=== PATIENT | female | born 1945 | race African-American/Black ===

== ENCOUNTER 2018-10-16 14:33 | Inpatient (IN) | payer MEDICARE ==
[~2018-10-16] VITALS: Ht 154.9 cm; Wt 90.7 kg
[2018-10-16] VITALS (8 sets, daily range): BP systolic 89–134; BP diastolic 42–70
--- OUTSIDE RECORDS SUMMARY | 2018-10-16 14:35 | XMS REPORT | Clinical Summary ---
Author Author [facility] Address Unknown Phone Unavailable Care Team Providers Care Square Cutter Name Role Phone Asked, No Pcp PCP Unavailable Allergies No Known Allergies Medications End Date Status Medication Sig Dispensed Refills Start Date Active metFORMIN (GLUCOPHAGE) Take 500 mg 0 500 mg tablet by mouth 2 (two) times a day with meals. Active diltiazem CD (CardIZEM Take 240 mg 0 CD) 240 MG 24 hr capsule by mouth daily. Active montelukast (SINGULAIR) Take 10 mg by 0 10 mg tablet mouth nightly. Active tiotropium (SPIRIVA) 18 Place 1 0 mcg per inhalation capsule into capsule inhaler and inhale once daily. Active ADVAIR DISKUS 250-50 INHALE 1 PUFF 0 mcg/dose DISKUS BY MOUTH 7 TWICE A DAY Active PROAIR HFA 90 INHALE 2 0 mcg/actuation inhaler PUFFS BY 7 MOUTH 4 TIMES A DAY NEEDED FOR WHEEZING OR SHORTNESS OF BREATH Active amitriptyline (ELAVIL) 50 Take 50 mg by 4 MG tablet mouth 7 nightly. Active losartan-hydrochlorothiaz Take 1 tablet 0 suzette (HYZAAR) 100-12.5 mg by mouth once 7 per tablet daily. Active VIGAMOX 0.5 % ophthalmic INSTILL 1 0 solution DROP 4 TIMES 7 PER DAY LEFT EYE FOR 3 DAYS THEN STOP Active LUMIGAN 0.01 % ophthalmic INSTILL 1 0 drops DROP INTO 7 LEFT EYE EVERY DAY AT BEDTIME Active acetaZOLAMIDE (DIAMOX) Take 500 mg 1 500 mg capsule by mouth 2 7 (two) times a day. Active lactulose 10 gram/15 mL Take 15 mL 240 mL 2 (15 mL) (10 g total) 7 solutionIndications: by mouth 2 Constipation, unspecified (two) times a constipation type day as needed (for constipation) . Active metoprolol tartrate Take 50 mg by 0 (LOPRESSOR) 50 mg tablet mouth every 7 12 (twelve) hours. Active glimepiride (AMARYL) 2 MG Take 2 mg by 4 tablet mouth 2 (two) 7 times a day. Active INCRUSE ELLIPTA 62.5 0 mcg/actuation blister 7 with device Active Problems No known active problems Family History Medical History Relation Name Comments Stomach cancer Cousin Relation Name Status Comments Cousin maternal cousin Dx 50's Social History Date Tobacco Use Types Packs/Day Years Used Former Smoker Cigarettes 0.5 25 Smokeless Tobacco: Never Used Tobacco Cessation: Counseling Given: Yes Alcohol Use Drinks/Week oz/Week Comments No Sex Assigned at Date Recorded Not on file Industry Job Start Date Occupation Not on file Not on file Not on file Travel End Travel History Travel Start No recent travel history available. Last Filed Vital Signs Not on file Plan of Treatment Health Maintenance Due Date Last Done Comments BREAST CANCER SCREENING 12/01/1995 COLON CANCER SCREENING 12/01/1995 SHINGLES VACCINES (#1) 12/01/1995 65+ PNEUMOCOCCAL VACCINE 2010 (1 of 2 - PCV13) INFLUENZA VACCINE 12/10/2018 Implants Device Identifier Shelf Expiration Date Model / Serial / Lot Implanted Type Area [facility] [id number] / / [id number] Solution Tisseel 4ml Fibrin Selnt Surgical N/A: N/A KAYE Syr Prfild - [id number] Implants; BIOSCIENCE Implanted: Qty: 1 on 02/28/2017 by [employer]; Annabelle Bell, Extenders; Surgical Wires Results Not on fileafter 10/15/2017 Insurance Type Payer Benefit Subscriber ID Effective Phone Address Plan / Dates Group Medicare MEDICARE MEDICARE xxxxxxxxxx 2008-P ALEX, PART A AND chelsey Rios Advance Directives Patient has advance care planning documents, and code status on file. For more i nformation, please contact: Alex Crane [address] [place] [address] Date Inactivated Comments Code Status Date Activated 03/04/2017 1:24 AM Full Code 02/28/2017 1:29 PM Code Status decision reached by: Patient
[2018-10-16] MEDS ORDERED: SODIUM CHLORIDE 0.9% 1000ML 1,000 ML ONE (14:59)
[2018-10-16] MEDS ORDERED: LEVALBUTEROL HCL SOLN NEBU 0.63 MG/3 ML NEB ONE (15:01)
--- NOTE | 2018-10-16 15:22 | Diagnostic Imaging Report ---
Examination: Single AP view of the chest. COMPARISON: None. INDICATION: Shortness of breath DISCUSSION: X-ray is rotated. Lines/tubes: None. Lungs: Interstitial prominence. No consolidation. Pleura: No pleural effusion or pneumothorax. Heart and mediastinum: The heart and the mediastinum are unremarkable. Bones and soft tissues: No acute bony abnormalities. IMPRESSION: 1. No acute cardiopulmonary abnormalities. Signed by: Dr. Ghassan Awad M.D. on 10/16/2018 3:19 PM
[2018-10-16 15:26] LABS: BASOPHILS % 0.2 % (0.0-1.0); EOSINOPHILS # (AUTO) 0.1 (0.0-0.4); EOSINOPHILS % 0.8 % (0.0-6.0); LYMPHOCYTES # (AUTO) 1.7 (1.0-3.2); LYMPHOCYTES % 15.3 % (18.0-39.1); MEAN CORPUSCULAR HGB CONC 29.4 g/dL (31-35); MEAN CORPUSCULAR VOLUME 91.8 fL (81-99); MONOCYTES # (AUTO) 0.8 (0.2-0.8); MONOCYTES % 6.8 % (4.4-11.3); NEUTROPHILS # (AUTO) 8.5 (2.1-6.9); NEUTROPHILS % 76.4 % (38.7-80.0); PLATELET COUNT 230 x10e3/uL (140-360); RED BLOOD COUNT 1.96 x10e6/uL (3.6-5.1); RED CELL DISTRIBUTION WIDTH 15.9 % (11.7-14.4)
[2018-10-16] MEDS ORDERED: SODIUM CHLORIDE 0.9% 1000ML 1,000 ML IV SCH (15:30)
[2018-10-16 15:32] LABS: HEMOGLOBIN 5.3 g/dL (12.0-16.0)
[2018-10-16] MEDS ORDERED: LIDOCAINE 5% PATCH TP STA (15:34)
[2018-10-16 15:42] LABS: ALBUMIN 3.1 g/dL (3.5-5.0); ANION GAP 16.8 mmol/L (8-16); CALCIUM 8.8 mg/dL (8.4-10.2); CREATININE, SERUM 1.58 mg/dL (0.57-1.11); POTASSIUM 4.8 mmol/L (3.5-5.1)
[2018-10-16] MEDS ORDERED: SODIUM CHLORIDE 0.9% 250ML 250 ML IV ONE (15:45)
[2018-10-16 15:48] LABS: CREATINE KINASE MB 1.6 ng/mL (0-5.0)
[2018-10-16 15:51] LABS: B-TYPE NATRIURETIC PEPTIDE2 866.5 pg/mL (0-100)
[2018-10-16] MEDS: CEFTRIAXONE SOD 1 GM/NS 50 ML 50 ML IV SCH (16:23)
--- OUTSIDE RECORDS SUMMARY | 2018-10-16 16:32 | XMS REPORT | Clinical Summary ---
Author Author [facility] Address Unknown Phone Unavailable Care Team Providers Care Watch Crystal Molder Name Role Phone Asked, No Pcp PCP [...] / Serial / Lot Implanted Type [facility] [id number] / / [id number] Solution Tisseel 4ml Fibrin Selnt Surgical N/A: N/A KAYE Syr Prfild - [id number] Implants; BIOSCIENCE Implanted: Qty: 1 on 02/28/2017 [...] more i nformation, please contact: Alex Crane [address] [place] [address] Date Inactivated Comments Code Status Date Activated 03/04/2017 1:24 AM Full Code 02/28/2017 1:29 PM Code Status decision reached by: Patient
--- OUTSIDE RECORDS SUMMARY | 2018-10-16 16:32 | XMS REPORT ---
Author Author [facility] Address Unknown Phone Unavailable Care Team Providers Care Shells Inspector Name Role Phone Alejandra BEARD Unavailable Unavailable Problems This patient has no known problems. Allergies, Adverse Reactions, Alerts This patient has no known allergies or adverse reactions. Medications This patient has no known medications. Results Test Description Test Time Test Comments Text Results Atomic Results Result Comments CHEST SINGLE (PORTABLE) 2018-10-16 15:18:00 [facility] [address] [place] [address] Patient Name: DENIS ARREAGA MR #: [id number] : 1945 Age/Sex: 72/F Req #: [id number] Adm Physician: Ordered by: RIKA BEARD MD Report #: [id number] Location: ER Room/Bed: Procedure: [id number] DX/CHEST SINGLE (PORTABLE) Exam Date: 10/16/18 Exam Time: 1450 REPORT STATUS: Signed Examination: Single AP view of the chest. COMPAR JOANNA: None. INDICATION: Shortness of breath DISCUSSION: X-ray is rotated. Lines/tubes: None. Lungs: Interstitial prominence. No consolidation. Pleura: No pleural effusion or pneumothorax. Heart and mediastinum: The heart and the mediastinum are unremarkable. Bones and soft tissues: No acute bony abnormalities. IMPRESSION: 1. No acute cardiopulmonary abnormalities. Signed by: Dr. Danielito Carr M.D. on 10/16/2018 3:19 PM Dictated By: DANIELITO CARR MD [id number] Transcribed By: LEONIDAS on 10/16/18 9736 COPY TO: RIKA BEARD MD
[2018-10-16 16:36] LABS: FERRITIN 13.02 ng/mL (4.63-204.00)
[2018-10-16] MEDS ORDERED: METOPROLOL TART50 MG PO (17:38)
[2018-10-16] MEDS ORDERED: BREO (17:38)
[2018-10-16] MEDS ORDERED: METFORMIN HCL500 MG PO (17:38)
[2018-10-16] MEDS ORDERED: MONTELUKAST SOD10 MG PO (17:38)
[2018-10-16] MEDS ORDERED: bevespi IH (17:38)
[2018-10-16] MEDS ORDERED: AMITRIPTYLINE H25 MG PO (17:38)
[2018-10-16] MEDS ORDERED: DILTIAZEM 24HR240 MG (17:38)
[2018-10-16] MEDS ORDERED: HYDROCODON-ACE1 EA11 (17:41)
[2018-10-16] MEDS ORDERED: ULTRAM50 MG PO (17:41)
--- NOTE | 2018-10-16 17:50 | NUR ---
received patient to room, she is awake, alert, following commands. bipap/nasal cannula. initial assessment completed. home meds entered into [facility]
--- NOTE | 2018-10-16 19:26 | NUR ---
New consult order placed for Dr. Patel, paged information technology program manager which is covered by Dr. Marin. Aware of new consult.
[2018-10-16] MEDS ORDERED: SODIUM CHLORIDE 0.9% 250ML 250 ML ONE ×2 (19:34→23:54)
[2018-10-17] VITALS (25 sets, daily range): BP systolic 80–171; BP diastolic 37–101
--- NOTE | 2018-10-17 06:25 | NUR ---
Pt DTV, bladder scan done at 0330, 193 mL total. Pt voided at 0500, 100mL.
[2018-10-17 06:45] LABS: BASOPHILS # (AUTO) 0.1 (0.0-0.1); BASOPHILS % 0.5 % (0.0-1.0); EOSINOPHILS # (AUTO) 0.3 (0.0-0.4); EOSINOPHILS % 2.9 % (0.0-6.0); HEMATOCRIT 28.5 % (34.2-44.1); HEMOGLOBIN 8.9 g/dL (12.0-16.0); LYMPHOCYTES # (AUTO) 1.7 (1.0-3.2); LYMPHOCYTES % 15.9 % (18.0-39.1); MEAN CORPUSCULAR HEMOGLOBIN 28.4 pg (28-32); MEAN CORPUSCULAR HGB CONC 31.2 g/dL (31-35); MEAN CORPUSCULAR VOLUME 91.1 fL (81-99); MONOCYTES # (AUTO) 0.8 (0.2-0.8); MONOCYTES % 7.4 % (4.4-11.3); NEUTROPHILS # (AUTO) 7.9 (2.1-6.9); NEUTROPHILS % 72.7 % (38.7-80.0); PLATELET COUNT 197 x10e3/uL (140-360); RED BLOOD COUNT 3.13 x10e6/uL (3.6-5.1); RED CELL DISTRIBUTION WIDTH 15.4 % (11.7-14.4)
[2018-10-17 07:02] LABS: ANION GAP 9.8 mmol/L (8-16); CREATININE, SERUM 1.54 mg/dL (0.57-1.11); POTASSIUM 4.8 mmol/L (3.5-5.1)
[2018-10-17 07:21] LABS: CREATINE KINASE MB 2.2 ng/mL (0-5.0)
[2018-10-17 07:22] LABS: CREATINE KINASE MB 1.2 ng/mL (0-5.0)
--- NOTE | 2018-10-17 07:23 | Diagnostic Imaging Report ---
LEFT SHOULDER X-RAY - 2 VIEWS HISTORY: ^fall ^[id number] ^0650 COMPARISON: Chest radiograph 10/16/2018 FINDINGS: Bones: No acute displaced fracture. Osseous alignment is within normal limits. Joints: Moderate degenerative changes of the left acromioclavicular joint. Soft tissues: The soft tissues appear unremarkable. IMPRESSION: No acute radiographic abnormality. Signed by: Dr. Samantha Mcclendon M.D. on 10/17/2018 7:20 AM
--- NOTE | 2018-10-17 07:30 | NUR ---
PT SOB AND ACCESSORY MUSCLES BEING USED PT PLACED ON BIPAP NOTIFIED MD RECEIVED ORDERS MD ALSO NOTIFIED OF HGB LEVEL AT THIS TIME 4TH UNIT OR PRBC TO BE HELD AT THIS TIME
[2018-10-17] MEDS ORDERED: FUROSEMIDE INJ 10 MG/ML 4 ML VIAL IV STA (07:36)
[2018-10-17] MEDS ORDERED: ASPIRIN81 MG (07:58)
[2018-10-17] MEDS ORDERED: PREDNISONE10 MG PO (07:58)
[2018-10-17] MEDS ORDERED: DEXTROSE 50% SYRINGE 50 ML IV PRN (11:00)
[2018-10-17] MEDS ORDERED: ALBUTEROL/IPRATROPIUM 3 ML NEB NEB PRN (11:00)
--- NOTE | 2018-10-17 11:04 | NUR ---
CONSULT CALLED FOR .
[2018-10-17] MEDS: INSULIN LISPRO 100 UNIT/1 ML 3ML VIAL SQ SCH ×3 (11:30→20:45)
[2018-10-17] MEDS ORDERED: SODIUM CHLORIDE 0.9% 250ML 250 ML ONE (11:36)
[2018-10-17] MEDS: PANTOPRAZOLE 40 MG 10ML VIAL IV SCH (11:46)
[2018-10-17] MEDS: METRONIDAZOLE 500MG/NS 100ML 100 ML IV SCH ×3 (11:46→22:34)
[2018-10-17 11:51] LABS: FOLATE 19.1 ng/mL (7.0-15.4)
[2018-10-17] MEDS: METHYLPREDNISOLONE SOD SUCC 40 MG/ML VIAL 1ML IV SCH ×2 (12:36→21:16)
--- NOTE | 2018-10-17 12:51 | Consultation ---
DATE OF CONSULTATION: 10/17/2018 Pulmonary Consultation REASON FOR CONSULT: Shortness of breath, respiratory failure. HISTORY OF PRESENT ILLNESS: Ms. Iverson is a 72-year-old female. She was admitted under Dr. Posada's service from the emergency room for shortness of breath. The patient reported that shortness of breath started a few days ago and progressively got worse. She reports that she has been a smoker for 50 years, quit 1 year ago. She has been diagnosed with COPD. She uses home oxygen and is on Breo at home. She denies any chest pain, nausea, or vomiting. She has a history of heart disease and hypertension. The patient received 2 units of blood as the patient's hemoglobin was 5.3 when she came in and last night she became more short of breath and she was transferred to ICU and put on BiPAP. Her initial chest x-ray, which was done on the shows increased vascular congestion and enlarged pulmonary arteries, possibly right middle lobe infiltrate as well. These are not reported, this is my review of the films. REVIEW OF SYSTEMS: GENERAL: Denies any fever or chills. HEAD: Denies any head trauma. ENT: Denies any earache. CVS: Denies any chest pain. RESPIRATORY: Shortness of breath. GI: Denies any nausea or vomiting. The rest of the review of systems are negative except as in HPI. PAST MEDICAL HISTORY: Hypertension, coronary artery disease, COPD. PAST SURGICAL HISTORY: Unknown. FAMILY AND SOCIAL HISTORY: Ex-smoker, [id number] smoking history, quit a year ago. Denies any alcohol use. Lives by herself and the daughters come in and out. PHYSICAL EXAMINATION: VITAL SIGNS: Temperature 97.6, pulse 94, blood pressure 150/49, respiratory rate is 18 to 20. HEENT: Head is atraumatic, normocephalic. NECK: Supple. CHEST: Markedly reduced air entry and wheezing. HEART: S1, S2 audible. ABDOMEN: Soft, nontender, nondistended. EXTREMITIES: Trace pedal edema. NEUROLOGIC: Awake, alert, following commands, responding to questions appropriately. LABORATORY DATA: White count was 11,000, hemoglobin was 5.3 on the 7th, today it is 8.9 and white count is 10.8, platelets 197. Chemistry; sodium 140, potassium 4.8, chloride 105, bicarb 30, when she came in her bicarb was 26, creatinine is 1.54, it was 1.58 when she came in. TSH is 1.065. IMAGING DATA: Chest x-ray, I have reviewed the images, it is reported as normal, but I think it has vascular congestion and increased pulmonary artery enlargement. ASSESSMENT: Ms. Iverson is a 72-year-old female. She presented to the emergency room with shortness of breath. She was severely anemic, GI has been consulted. The patient received blood transfusion and subsequently started having shortness of breath. RECOMMENDATIONS: 1. I will repeat a chest x-ray, increased congestion was visible in the last chest x-ray. The patient was given IV Lasix, appears to be somewhat comfortable, but still tachypneic, I will continue the patient on BiPAP as ordered. I will do an ABG. 2. The patient has a significant history of smoking and known history of COPD, uses home oxygen. I will start the patient on IV Solu-Medrol and add azithromycin to the antibiotic regimen that has been started. MD NICHOLAS Nava/LEATHA /[id number]
--- NOTE | 2018-10-17 13:08 | Diagnostic Imaging Report ---
EXAMINATION: CHEST SINGLE (PORTABLE) INDICATION: ^SOB ^[id number] ^1212 COMPARISON: Chest radiograph 10/16/2018 FINDINGS: AP view TUBES and LINES: None. LUNGS: Lungs are well inflated. Bilateral interstitial edema. Bibasilar atelectasis. PLEURA: No pleural effusion or pneumothorax. HEART AND MEDIASTINUM: Enlargement of the cardiac silhouette is unchanged. BONES AND SOFT TISSUES: No acute osseous lesion. Soft tissues are unremarkable. UPPER ABDOMEN: No free air under the diaphragm. IMPRESSION: Worsening bilateral interstitial edema. Signed by: Dr. Samantha Mcclendon M.D. on 10/17/2018 1:05 PM
[2018-10-17] MEDS ORDERED: DEXMEDETOMIDINE 200MCG/NS 50ML 50 ML IV ONE ×2 (13:11→23:27)
--- NOTE | 2018-10-17 13:30 | NUR ---
patient is short of breath, breathing heavily. will not allow bipap to be applied, is hitting and being combative. patient jumped out of bed to bedside commode, uses the bathroom on the floor, then is refusing to get back in bed. patient is still hitting at staff and is still short of breath. md notified, precedex drip ordered and started. meghann ford called, patient assisted back to bed. bipap applied. md notified, precedex drip ordered and started.
[2018-10-17] MEDS: DEXMEDETOMIDINE HCL 200 MCG in SODIUM CHLORIDE 0.9% 50ML 48 ML IV PRN (13:39)
--- NOTE | 2018-10-17 13:42 | History and Physical ---
CHIEF COMPLAINT: Syncopal episode and severe anemia. Hemoglobin and hematocrit on admission were 5.3 and 18. SUMMARY: The patient is a 72-year-old female brought into the hospital with a syncopal episode. The patient was having increasing shortness of breath. The patient was found to have severe anemia. Etiology of anemia is unclear. The patient is a poor historian overall. Currently, she is on BiPAP with respiratory problem, not much can be obtained at this time. The patient's hemoglobin and hematocrit is 5.3 and 18. The patient does have baseline diabetes and hypertension. The patient has also has COPD. PAST MEDICAL HISTORY: COPD, hypertension, diabetes type 2, anxiety disorder. PAST SURGICAL HISTORY: Not available now. SOCIAL HISTORY: The patient does not smoke or use alcohol. No recreational drugs. ALLERGIES: NO KNOWN ALLERGIES. HOME MEDICATIONS: Amitriptyline, aspirin, diltiazem, [place], metformin, metoprolol tartrate, Singulair, prednisone, tramadol, Breo and Bevespi. REVIEW OF SYSTEMS: The patient is on BiPAP at this time. PHYSICAL EXAMINATION: VITAL SIGNS: Temperature is 97, blood pressure 150/49, pulse rate 94, respiration is 18. GENERAL: The patient is not in acute distress. She is arousable on BiPAP. HEENT: Normocephalic, atraumatic. Anicteric. NECK: Supple grossly. PULMONARY: Diminished breath sounds bilaterally with some coarse. CARDIOVASCULAR: Regular rate and rhythm. ABDOMEN: Soft. Non distention. EXTREMITIES: No cyanosis or edema. NEUROLOGIC: The patient is arousable to awake on BiPAP. LABORATORY DATA: Sodium is 140, potassium 4.8, chloride 105, bicarb 30, BUN 23, creatinine 1.5, glucose 159. WBC is 10.8, hemoglobin was 5.3, hematocrit is 18. Post 3 units blood transfusion, hemoglobin is 8.9, hematocrit 28.5, platelet 197. Chest x-ray is clear. Shoulder x-ray, no acute radiographic abnormality. IMPRESSION: 1. Severe anemia with very low symptomatic anemia. Hemoglobin and hematocrit of 5.3 and 18.0. Etiology of anemia is unclear. No further history obtained at this time. 2. Baseline chronic obstructive pulmonary disease. 3. Hypertension. 4. Diabetes type 2. 5. Anxiety disorder. PLAN: 1. Consultation with Dr. Sonido Patel for anemia workup. 2. Consultation with printed circuit boards solder leveler, Dr. Erica Seaman for COPD and respiratory problem. 3. Echocardiogram. Repeated lab workup. Fluid status post transfusion. We will monitor the patient closely at this time. MD JUDI Simms/LEATHA /[id number]
[2018-10-17] MEDS: AZITHROMYCIN 250MG/NS 100 ML 100 ML IV SCH (13:52)
[2018-10-17] MEDS: ALBUTEROL/IPRATROPIUM 3 ML NEB NEB SCH ×3 (14:00→23:20)
[2018-10-17] MEDS ORDERED: FUROSEMIDE INJ 10 MG/ML 2 ML VIAL IV NR (15:00)
--- NOTE | 2018-10-17 15:05 | NUR ---
Deferred core measure screen due to a recent incident with the nursing staff. Pt became confused and violent about 30 mins ago and had to be assisted back to bed by male staff during a code summers. Will f/u on 10/19/18. Addendum: 10/17/18 at 1507 by Jose Antonio Acuña PT Amended: Links added.
[2018-10-17] MEDS: CEFTRIAXONE SOD 1 GM/NS 50 ML 50 ML IV SCH (15:08)
[2018-10-17 15:09] LABS: CREATINE KINASE MB 2.7 ng/mL (0-5.0)
--- NOTE | 2018-10-17 15:16 | NUR ---
NOTIFIED OF ABG SETTINGS RECEIVED ORDERS BIPAP CHANGES MADE PER RT
[2018-10-17 15:21] LABS: ABG PH 7.21 (7.31-7.41)
[2018-10-17 15:22] LABS: ABG HCO3 34 mmol/L (23-28); ABG PCO2 87 mmHg (41-51); ABG PO2 238 mmHg (80-105)
[2018-10-17] MEDS: METOPROLOL TARTRATE 50 MG TAB PO SCH (17:00)
[2018-10-17] MEDS ORDERED: BISACODYL 10 MG SUPP PR NR (17:00)
[2018-10-17 17:55] LABS: ABG HCO3 36 mmol/L (23-28); ABG PCO2 87 mmHg (41-51); ABG PH 7.22 (7.31-7.41); ABG PO2 155 mmHg (80-105)
[2018-10-17] MEDS: MONTELUKAST SODIUM 10 MG TAB PO SCH (21:00)
[2018-10-17] MEDS: AMITRIPTYLINE HCL 25 MG TAB PO SCH (21:00)
[2018-10-17 23:59] LABS: ABG HCO3 36 mmol/L (23-28); ABG PCO2 63 mmHg (41-51); ABG PH 7.36 (7.31-7.41); ABG PO2 122 mmHg (80-105)
[2018-10-18] VITALS (23 sets, daily range): BP systolic 108–167; BP diastolic 44–116
[2018-10-18] MEDS: DEXMEDETOMIDINE HCL 200 MCG in SODIUM CHLORIDE 0.9% 50ML 48 ML IV PRN (00:56)
[2018-10-18 04:45] LABS: BASOPHILS % 0.1 % (0.0-1.0); HEMOGLOBIN 8.7 g/dL (12.0-16.0); LYMPHOCYTES # (AUTO) 0.8 (1.0-3.2); LYMPHOCYTES % 10.1 % (18.0-39.1); MEAN CORPUSCULAR HEMOGLOBIN 27.8 pg (28-32); MEAN CORPUSCULAR HGB CONC 31.1 g/dL (31-35); MEAN CORPUSCULAR VOLUME 89.5 fL (81-99); MONOCYTES # (AUTO) 0.2 (0.2-0.8); MONOCYTES % 2.9 % (4.4-11.3); NEUTROPHILS % 86.3 % (38.7-80.0); PLATELET COUNT 187 x10e3/uL (140-360); RED BLOOD COUNT 3.13 x10e6/uL (3.6-5.1); RED CELL DISTRIBUTION WIDTH 15.1 % (11.7-14.4)
[2018-10-18 05:01] LABS: ANION GAP 13.6 mmol/L (8-16); BLOOD UREA NITROGEN 19 mg/dL (7-26); BUN/CREATININE RATIO 20 (6-25); CALCIUM 9.4 mg/dL (8.4-10.2); CARBON DIOXIDE 33 mmol/L (22-29); CHLORIDE 99 mmol/L (98-107); CREATININE, SERUM 0.96 mg/dL (0.57-1.11); EST GLOMERULAR FILTRATION RATE > 60 ML/MIN (60-); GLUCOSE 189 mg/dL (74-118); POTASSIUM 4.6 mmol/L (3.5-5.1); SODIUM 141 mmol/L (136-145)
[2018-10-18 05:12] LABS: MAGNESIUM 1.5 MG/DL (1.3-2.1); PHOSPHORUS 3.1 MG/DL (2.3-4.7)
[2018-10-18] MEDS: METRONIDAZOLE 500MG/NS 100ML 100 ML IV SCH ×3 (05:55→22:08)
[2018-10-18] MEDS: ALBUTEROL/IPRATROPIUM 3 ML NEB NEB SCH ×4 (07:20→23:55)
--- NOTE | 2018-10-18 07:52 | Diagnostic Imaging Report ---
EXAM: CT of the abdomen and pelvis WITHOUT contrast HISTORY: SEVERE ANEMIA, syncope, sepsis COMPARISON: None available. TECHNIQUE: The abdomen and pelvis were scanned utilizing a multidetector helical scanner. Coronal and sagittal reformats are available. PROTOCOL: Routine IV CONTRAST: None, which limits sensitivity and specificity of evaluation of the soft tissues and vascular structures. ORAL CONTRAST: None, which limits sensitivity and specificity of evaluation of the bowel. RADIATION DOSE: Total DLP: 770.07 mGy*cm Estimated effective dose: (DLP x 0.015 x size factor) Dose modulation, iterative reconstruction, and/or weight based adjustment of the mA/kV was utilized to reduce the radiation dose to as low as reasonably achievable. COMPLICATIONS: None FINDINGS: The exam is limited secondary to suboptimal positioning. LOWER THORAX: Moderate bibasilar atelectasis with patchy interstitial and airspace opacities. Trace bilateral pleural effusions. HEPATOBILIARY: No definite focal hepatic lesions. No biliary ductal dilatation. Numerous small calcified gallstones. SPLEEN: No splenomegaly. PANCREAS: No focal masses or ductal dilatation. ADRENALS: No adrenal nodule. KIDNEYS/URETERS: A 3 mm nonobstructing calcification near the superior pole of the right kidney. Multiple left perirenal vascular calcifications, without a definitive stone. No left hydronephrosis. Bilateral perinephric nonspecific fat stranding. PELVIC ORGANS/BLADDER: The urinary bladder is decompressed about a Wick catheter. PERITONEUM / RETROPERITONEUM: No free air or fluid. GI TRACT: On limited evaluation of the gastrointestinal tract, no dilation or wall thickening identified. The appendix appears normal. LYMPH NODES: No pathologically enlarged lymph nodes. VESSELS: Extensive scattered atherosclerotic vascular calcifications. BONES: No aggressive osseous lesion or acute displaced fracture. Subcentimeter nonaggressive sclerotic densities in the left iliac bone and the intertrochanteric region of the left femur, most likely small bone islands, especially in the absence of a known malignancy. Accentuation of the visualized thoracic kyphosis. Moderate to severe multilevel degenerative changes. SOFT TISSUES: Unremarkable. IMPRESSION: 1. Bilateral lower lobe atelectasis with the possibility of superimposed aspiration or multifocal pneumonia. 2. Trace bilateral pleural effusions. 3. Cholelithiasis, without evidence of acute cholecystitis. 4. A 3 mm nonobstructing right renal stone. 5. Extensive atherosclerosis. Signed by: Dr. Tyler Pastrana D.O., M.M.M. on 10/18/2018 7:49 AM
[2018-10-18] MEDS: METOPROLOL TARTRATE 50 MG TAB PO SCH ×2 (08:09→16:13)
[2018-10-18] MEDS: PANTOPRAZOLE 40 MG 10ML VIAL IV SCH (08:09)
[2018-10-18] MEDS: METHYLPREDNISOLONE SOD SUCC 40 MG/ML VIAL 1ML IV SCH ×2 (08:09→22:08)
--- NOTE | 2018-10-18 08:21 | NUR ---
PT LAID BED COMPLETELY FLAT AND IS TRYING TO EAT IN [place]PINE POSITION THIS RN EDUCATED PATIENT THAT WAS NOT SAFE FOR HER PT STATES " I KNOW HOW TO EAT YOU DONT TELL ME WHAT TO DO" THIS RN EXPLAINED THAT IT WAS NOT ALLOWED BECAUSE OF RISK FOR ASPIRATION.
[2018-10-18] MEDS: INSULIN LISPRO 100 UNIT/1 ML 3ML VIAL SQ SCH ×4 (08:28→21:00)
[2018-10-18] MEDS: HYDROCODONE/APAP 5MG-325MG TAB PO PRN (12:08)
[2018-10-18] MEDS: AZITHROMYCIN 250MG/NS 100 ML 100 ML IV SCH (12:56)
[2018-10-18] MEDS: CEFTRIAXONE SOD 1 GM/NS 50 ML 50 ML IV SCH (14:38)
[2018-10-18] MEDS ORDERED: PEG (High)/E-LYTE SOLN 4,000 ML BTL PO SCH (17:00)
[2018-10-18] MEDS: AMITRIPTYLINE HCL 25 MG TAB PO SCH (22:08)
[2018-10-18] MEDS: MONTELUKAST SODIUM 10 MG TAB PO SCH (22:08)
[2018-10-19] VITALS (19 sets, daily range): BP systolic 103–168; BP diastolic 39–116
[2018-10-19 05:38] LABS: BASOPHILS % 0.1 % (0.0-1.0); HEMATOCRIT 29.3 % (34.2-44.1); HEMOGLOBIN 9.1 g/dL (12.0-16.0); LYMPHOCYTES # (AUTO) 1.1 (1.0-3.2); LYMPHOCYTES % 10.8 % (18.0-39.1); MEAN CORPUSCULAR HEMOGLOBIN 28.4 pg (28-32); MEAN CORPUSCULAR HGB CONC 31.1 g/dL (31-35); MEAN CORPUSCULAR VOLUME 91.6 fL (81-99); MONOCYTES # (AUTO) 0.4 (0.2-0.8); MONOCYTES % 3.8 % (4.4-11.3); NEUTROPHILS # (AUTO) 8.4 (2.1-6.9); NEUTROPHILS % 84.8 % (38.7-80.0); PLATELET COUNT 208 x10e3/uL (140-360); RED CELL DISTRIBUTION WIDTH 15.1 % (11.7-14.4)
[2018-10-19 05:53] LABS: INR 1.1; PROTHROMBIN TIME 14.7 seconds (11.9-14.5)
[2018-10-19 06:00] LABS: ANION GAP 10.4 mmol/L (8-16); BLOOD UREA NITROGEN 22 mg/dL (7-26); BUN/CREATININE RATIO 21 (6-25); CALCIUM 9.4 mg/dL (8.4-10.2); CARBON DIOXIDE 36 mmol/L (22-29); CHLORIDE 96 mmol/L (98-107); CREATININE, SERUM 1.07 mg/dL (0.57-1.11); EST GLOMERULAR FILTRATION RATE > 60 ML/MIN (60-); GLUCOSE 178 mg/dL (74-118); POTASSIUM 4.4 mmol/L (3.5-5.1); SODIUM 138 mmol/L (136-145)
[2018-10-19] MEDS: METRONIDAZOLE 500MG/NS 100ML 100 ML IV SCH ×3 (06:38→21:49)
[2018-10-19] MEDS: HYDROCODONE/APAP 5MG-325MG TAB PO PRN ×2 (06:40→19:48)
--- NOTE | 2018-10-19 06:53 | Diagnostic Imaging Report ---
EXAMINATION: CHEST SINGLE (PORTABLE) INDICATION: ^sob ^[id number] ^0515 COMPARISON: 10/17/2018 FINDINGS: AP view TUBES and LINES: None. LUNGS: Lungs are well inflated. Pulmonary vascular congestion and mild interstitial edema. PLEURA: No significant pleural effusion or pneumothorax. HEART AND MEDIASTINUM: The cardiac silhouette is enlarged. BONES AND SOFT TISSUES: No acute osseous lesion. Soft tissues are unremarkable. UPPER ABDOMEN: No free air under the diaphragm. IMPRESSION: Enlarged cardiac silhouette, pulmonary vascular congestion, and mild interstitial edema. Signed by: Dr. Nate Stahl MD on 10/19/2018 6:50 AM
[2018-10-19] MEDS: ALBUTEROL/IPRATROPIUM 3 ML NEB NEB SCH ×3 (07:20→19:32)
[2018-10-19] MEDS: INSULIN LISPRO 100 UNIT/1 ML 3ML VIAL SQ SCH ×4 (07:28→21:00)
[2018-10-19] MEDS: METOPROLOL TARTRATE 50 MG TAB PO SCH ×2 (07:34→17:19)
[2018-10-19] MEDS: METHYLPREDNISOLONE SOD SUCC 40 MG/ML VIAL 1ML IV SCH ×2 (08:02→21:47)
[2018-10-19] MEDS: PANTOPRAZOLE 40 MG 10ML VIAL IV SCH (08:02)
[2018-10-19] MEDS: AZITHROMYCIN 250MG/NS 100 ML 100 ML IV SCH (11:37)
[2018-10-19] MEDS: CEFTRIAXONE SOD 1 GM/NS 50 ML 50 ML IV SCH (14:19)
[2018-10-19] MEDS ORDERED: CITRATE OF MAGNESIA 300ML BOTTLE PO ONE (14:30)
[2018-10-19] MEDS ORDERED: CITRATE OF MAGNESIA 300ML BOTTLE PO SCH (18:00)
[2018-10-19] MEDS: AMITRIPTYLINE HCL 25 MG TAB PO SCH (21:47)
[2018-10-19] MEDS: MONTELUKAST SODIUM 10 MG TAB PO SCH (21:48)
[2018-10-20] VITALS (8 sets, daily range): BP systolic 148–166; BP diastolic 60–89
[2018-10-20] MEDS: ALBUTEROL/IPRATROPIUM 3 ML NEB NEB SCH ×4 (01:02→18:45)
--- NOTE | 2018-10-20 02:00 | NUR ---
Patient connected to BIPAP at this time,tolerated well. Will continue to monitor.
--- NOTE | 2018-10-20 05:32 | NUR ---
Disconnected BIPAP at this time. Connected 2liters O2 via nasal canula,Spo2 maintained 99%. Will continue to monitor.
[2018-10-20] MEDS: METRONIDAZOLE 500MG/NS 100ML 100 ML IV SCH ×3 (05:42→21:15)
--- NOTE | 2018-10-20 07:37 | NUR ---
patient at endoscopy at this time.
--- NOTE | 2018-10-20 08:18 | NUR ---
patient back from [facility]. meal tray ordered. vitals stable with no distress.
[2018-10-20] MEDS: INSULIN LISPRO 100 UNIT/1 ML 3ML VIAL SQ SCH ×4 (08:38→20:31)
[2018-10-20] MEDS: METOPROLOL TARTRATE 50 MG TAB PO SCH ×2 (09:08→17:11)
[2018-10-20] MEDS: METHYLPREDNISOLONE SOD SUCC 40 MG/ML VIAL 1ML IV SCH ×2 (09:08→20:31)
[2018-10-20] MEDS: PANTOPRAZOLE 40 MG 10ML VIAL IV SCH (09:08)
--- NOTE | 2018-10-20 09:54 | NUR ---
ASSESSMENT: Spiritual concern Pt inspired by her parents' roberto. Pt states prayer was important to her parents. Pt identifies as Holiness. Pt states she is limited in mobility due to illness. Intervention: Provided empathic listening. Facilitated storytelling and illness review. Provided prayer and information on how to reach sole leveling machine operator, if needed. Outcome: Will follow as able. YOHANNES HOLT Boiler Plant Operator Spiritual Care Department O: [phone] Pager: [phone] ([phone] number calling from)
[2018-10-20] MEDS ORDERED: FUROSEMIDE INJ 10 MG/ML 4 ML VIAL IV ONE (11:15)
[2018-10-20] MEDS: CEFTRIAXONE SOD 1 GM/NS 50 ML 50 ML IV SCH (14:56)
[2018-10-20] MEDS: AZITHROMYCIN 250MG/NS 100 ML 100 ML IV SCH (14:56)
[2018-10-20] MEDS: BUDESONIDE 0.5MG/2 ML NEB INH SCH ×2 (15:05→18:45)
[2018-10-20] MEDS ORDERED: LIDOCAINE HCL 2% LOCAL INJ 5 ML SDV VIAL INJ ONE (18:36)
[2018-10-20] MEDS ORDERED: PROPOFOL IV EMULSION 10 MG/ML 20 ML VIAL ONE (18:36)
[2018-10-20] MEDS: HYDROCODONE/APAP 5MG-325MG TAB PO PRN (19:26)
--- NOTE | 2018-10-20 20:30 | NUR ---
Requested to give patient bed bath. Patient stated " I don't want to take one tonight." Requested to give fast sponge bath, patient stated " I just don't feel like it tonight, maybe in morning." Educated patient that would be able to give bath later if would like to wait, patient states " in the morning I will take one."
[2018-10-20] MEDS: MONTELUKAST SODIUM 10 MG TAB PO SCH (20:31)
[2018-10-20] MEDS: AMITRIPTYLINE HCL 25 MG TAB PO SCH (20:31)
[2018-10-20] MEDS ORDERED: SODIUM CHLORIDE 0.9% 250ML 250 ML ONE (20:47)
--- NOTE | 2018-10-20 22:00 | NUR ---
Patient called and requested to remove bipap. Education provided that MD would like patient to wear at night while sleeping. Patient stated " I will in a little bit." Will continue to monitor.
[2018-10-21] VITALS (13 sets, daily range): BP systolic 82–160; BP diastolic 43–72
--- NOTE | 2018-10-21 | NUR ---
Requested to place patient on bipap, patient stated " not right now." Education reinforced that MD would like patient to wear while sleeping. Stated " I will in a little bit." Asked patient what time would like to put bipap on, stated " 1am" Will come back at 1am to encourage patient to put bipap on.
[2018-10-21] MEDS: ALBUTEROL/IPRATROPIUM 3 ML NEB NEB SCH ×3 (01:00→13:45)
--- NOTE | 2018-10-21 01:00 | NUR ---
Attempted to apply bipap, Patient refusing. Education reinforced. Continues to refuse.
[2018-10-21] MEDS ORDERED: DILTIAZEM HCL 5 MG/ML 5 ML VIAL IV STA (01:24)
[2018-10-21] MEDS ORDERED: SODIUM CHLORIDE 0.9% 500ML 500 ML IV ONE ×2 (01:24→01:30)
--- NOTE | 2018-10-21 01:24 | NUR ---
Spoke with Dr Centeno regarding patient showing SVT HR 141, BP 93/51. New orders: Give NS 500cc bolus x1 then give diltiazem 5 mg iv, consult Dr Parisi.
[2018-10-21] MEDS ORDERED: SODIUM CHLORIDE 0.9% 1000ML 1,000 ML ONE (01:33)
[2018-10-21] MEDS ORDERED: DIGOXIN INJ 0.25 MG/ML 2 ML AMP IV ONE ×3 (02:00→04:00)
--- NOTE | 2018-10-21 02:00 | NUR ---
Spoke wit Dr Parisi regarding new consult for SVT, HR 141, 93/51. New orders: Stat EKG, CBC, CMP, MG. Digoxin 0.25 IV every hour x3 dose. And continue Dr Centeno orders for diltiazem 5 mg iv x1 after bolus.
[2018-10-21 02:18] LABS: BASOPHILS % 0.1 % (0.0-1.0); EOSINOPHILS % 0.1 % (0.0-6.0); HEMATOCRIT 29.5 % (34.2-44.1); HEMOGLOBIN 8.8 g/dL (12.0-16.0); LYMPHOCYTES # (AUTO) 0.9 (1.0-3.2); LYMPHOCYTES % 10.5 % (18.0-39.1); MEAN CORPUSCULAR HEMOGLOBIN 28.2 pg (28-32); MEAN CORPUSCULAR HGB CONC 29.8 g/dL (31-35); MONOCYTES # (AUTO) 0.4 (0.2-0.8); MONOCYTES % 4.2 % (4.4-11.3); NEUTROPHILS # (AUTO) 7.2 (2.1-6.9); NEUTROPHILS % 84.6 % (38.7-80.0); PLATELET COUNT 196 x10e3/uL (140-360); RED BLOOD COUNT 3.12 x10e6/uL (3.6-5.1); RED CELL DISTRIBUTION WIDTH 14.8 % (11.7-14.4)
[2018-10-21 02:26] LABS: MEAN CORPUSCULAR VOLUME 94.6 fL (81-99)
[2018-10-21 02:52] LABS: ALANINE AMINOTRANSFERASE 26 IU/L (0-55); ALBUMIN 2.7 g/dL (3.5-5.0); ALKALINE PHOSPHATASE 59 IU/L (40-150); ANION GAP 7.9 mmol/L (8-16); BLOOD UREA NITROGEN 23 mg/dL (7-26); BUN/CREATININE RATIO 23 (6-25); CALCIUM 8.9 mg/dL (8.4-10.2); CARBON DIOXIDE 36 mmol/L (22-29); CHLORIDE 98 mmol/L (98-107); CREATININE, SERUM 1.02 mg/dL (0.57-1.11); EST GLOMERULAR FILTRATION RATE > 60 ML/MIN (60-); GLUCOSE 194 mg/dL (74-118); POTASSIUM 4.9 mmol/L (3.5-5.1); SODIUM 137 mmol/L (136-145)
--- NOTE | 2018-10-21 04:00 | NUR ---
Attempted to apply bipap, patient stated " okay I will put it on." Bipap applied and patient tolerating. Call light within reach. Will continue to monitor.
--- NOTE | 2018-10-21 05:00 | NUR ---
Patient requested to remove bipap, bipap removed and 02 2L NC applied. Call light within reach. Will continue to monitor.
[2018-10-21] MEDS: METRONIDAZOLE 500MG/NS 100ML 100 ML IV SCH ×3 (05:15→21:26)
--- NOTE | 2018-10-21 06:00 | NUR ---
Patient resting in bed with 02 2L, no issues or concerns. Call light within reach. Will continue to monitor.
[2018-10-21] MEDS: BUDESONIDE 0.5MG/2 ML NEB INH SCH ×2 (07:20→19:00)
[2018-10-21] MEDS: INSULIN LISPRO 100 UNIT/1 ML 3ML VIAL SQ SCH ×4 (07:39→21:08)
[2018-10-21] MEDS: METOPROLOL TARTRATE 50 MG TAB PO SCH (09:07)
[2018-10-21] MEDS: PANTOPRAZOLE SOD 40 MG TABEC PO SCH (09:07)
[2018-10-21] MEDS: METHYLPREDNISOLONE SOD SUCC 40 MG/ML VIAL 1ML IV SCH ×2 (09:07→21:26)
--- NOTE | 2018-10-21 10:27 | NUR ---
EDUCATED ABOUT IMM, SIGNED, FILED IN CHART, WITH COPY LEFT WITH FAMILY AT BEDSIDE.
[2018-10-21] MEDS: HYDROCODONE/APAP 5MG-325MG TAB PO PRN ×2 (10:59→21:26)
[2018-10-21] MEDS: AZITHROMYCIN 250MG/NS 100 ML 100 ML IV SCH (13:10)
[2018-10-21] MEDS: DILTIAZEM HCL 60 MG TAB PO SCH ×2 (13:40→21:27)
[2018-10-21] MEDS: CEFTRIAXONE SOD 1 GM/NS 50 ML 50 ML IV SCH (15:45)
--- NOTE | 2018-10-21 17:01 | Consultation ---
DATE OF CONSULTATION: 10/21/2018 Cardiac Consultation REASON FOR CONSULTATION: SVT. HISTORY: A 72-year-old lady, who was admitted to this institution 10/16/2018 with an episode of syncope, hypertension, bradycardia. She was very anemic with hemoglobin of 5.3, hematocrit of 18%. She was in hypercapnic respiratory failure with ABGs after BiPAP showing pH of 7.21, pCO2 of 87, pO2 of 238. The patient treated aggressively with blood transfusion and pulmonary management. She had colonoscopy and EGD yesterday showing and hemorrhoids, hiatus hernia, and gastritis. It was noted the patient continued to have quite a lot of shortness of breath, she is quite debilitated, she went to SVT with heart rate of 140 per minute despite the patient being on metoprolol. She was given extra dose of Cardizem intravenously and she got total of 0.75 mg of digoxin and she converted back to normal sinus rhythm. The patient is very poor historian. At home, she was on both metoprolol and Cardizem. She is also known to have very severe advanced lung disease most likely secondary to history of smoking of 50 years' duration. She uses home oxygen. She does have several episodes of near intubation. She does not recall the detail, in fact we cannot depend on her history. She is having shortness of breath at rest with minimal activity, she is debilitated, she cannot do much of activity. She denied having any melena. REVIEW OF SYSTEMS: Not reliable, but it is done for all systems. GENERAL: Weakness, weakness and weakness. Failure to thrive. No weight gain. No weight loss. PULMONARY: The patient on home oxygen. She is having problem breathing all the time despite using home oxygen and several inhalers at home, very severe, very advanced. CARDIAC: She denied having any cardiac issue, but she is on metoprolol and Cardizem. GI: No hematemesis. No melena. : Incontinence. MUSCULOSKELETAL: Aches and pain. ENDOCRINE: The patient is diabetic. HEMATOLOGY: She denied having any bruising or bleeding. In conclusion, the patient is really a poor historian. Her main problems are diabetes, obesity, very severe advanced lung disease, fighting for her breath all the day. SOCIAL HISTORY: She lives by herself. She is ex heavy smoker. She is nonalcohol drinker. HOME MEDICATIONS: Very long list including several inhalers, home oxygen, metoprolol, diltiazem, metformin, Singulair, and other p.r.n. medication. Following admission, the patient was on BiPAP. She is on ceftriaxone, azithromycin, steroid, Singulair, inhalers, insulin, metoprolol 50 mg resume twice a day. ALLERGIES: NONE. PAST MEDICAL HISTORY: 1. Very severe advanced lung disease. 2. Ex heavy smoker. 3. Hypertension. 4. Obesity. 5. Diabetes mellitus. 6. Cholecystectomy. 7. Blindness in the left eye, status post several surgeries. 8. Debility. FAMILY HISTORY: No family history of premature heart disease if we believe the patient's information. PHYSICAL EXAMINATION: GENERAL: Obese lady, chronically and acutely ill, fighting for her breaths. VITAL SIGNS: Height of 5 feet 1 inch, weight of 193 pounds. Blood pressure 160/60, heart rate of 80, respiratory rate of 24, temperature of 97 Fahrenheit. HEENT: Left eye blindness. NECK: No elevation of jugular venous pulsation. CHEST: Poor, poor air entry. Marked prolongation of expiratory phase. HEART: Right ventricular heave. Ejection systolic murmur. ABDOMEN: Obese. EXTREMITIES: No cyanosis, no clubbing. NEUROLOGIC: Awake, alert, questionable some confusion or just she is exhausted and tired. No local deficits. LABORATORY DATA: Most recent hemoglobin 8.8, hematocrit 29% after 2 units packed red cells transfusion, white blood cell count of 8.4, platelet of 196. BUN of 23, creatinine of 1, sodium of 137, potassium 4.9. EKG yesterday showing SVT. Telemetry showing currently normal sinus rhythm. EGD and colonoscopy showing hiatus hernia, gastritis, , hemorrhoids. Echocardiogram showed preserved ventricular systolic function, pulmonary hypertension with pulmonary artery pressure of 60 mm Hg with calcification of the mitral valve. IMPRESSION AND PLAN: 1. Very severe advanced chronic obstructive pulmonary disease, on home oxygen with hypercapnic respiratory failure. 2. Hypertension. 3. Diabetes mellitus. 4. Severe anemia, most likely gastrointestinal losses. 5. Blindness of the left eye. 6. Tachyarrhythmias. 7. Debility. 8. Very high probability of coronary artery disease. Cardiac-mascorro, for the time being, treatment will be observation. We will stop metoprolol because of her precarious pulmonary status and the bad finding of pulmonary exam. We will put her on small dose of diltiazem with precaution and parameter to hold it. Cardiac-mascorro, the treatment will be conservative, no antiplatelets, no anticoagulation because of the recent GI bleed and hemoglobin of only 5.3 and blood transfusion, etc. Prognosis is really very guarded because of the comorbid condition and the most important thing is her advanced lung status. MD TOMASA Hill/MODL /[id number]
--- NOTE | 2018-10-21 18:31 | Progress Note ---
DATE: 10/21/2018 Medicine Progress Note I am covering for Dr. Posada. SUBJECTIVE: The patient was admitted for underlying sepsis in the ICU and also respiratory failure. She also had a GI bleed with melenic stool requiring GI consultation. The patient is currently doing well. She is in ICU. She is still on nasal cannula. Her vital signs are stable when I evaluated her. OBJECTIVE: VITAL SIGNS: Temperature 97.9, pulse 73, respiratory rate is 18, blood pressure 140/72, and pulse ox 100% on 2.5 L nasal cannula. GENERAL: Not in acute distress. Alert and oriented x3. Cooperative on examination. HEENT: Head is normocephalic and atraumatic. Eyes; pupils are equal, round, and reactive to light bilaterally. Extraocular movements are intact bilaterally. Throat, no evidence of erythema or exudates in the posterior pharynx. Has poor dentition. NECK: Supple. Good range of motion. PULMONARY: Clear to auscultation bilaterally. No wheezing, no rales, no rhonchi, no crackles appreciated. CARDIOVASCULAR: Positive S1 and S2. No murmurs, rubs, or gallops appreciated. ABDOMEN: Soft, nontender, and nondistended to palpation. Bowel sounds present. MUSCULOSKELETAL: Strength is 5/5 throughout. No evidence of any musculoskeletal deficits on exam. SKIN: Intact. Warm to touch. Good cap refill. PSYCHIATRIC: Normal affect and mood. EXTREMITIES: No edema. Good range of motion throughout. LABORATORY FINDINGS: Show white count 8.4, hemoglobin 8.8, hematocrit is 29, and platelets of 196. Coagulation; PT 14 and INR 1.1. Chemistry; sodium 137, potassium 4.9, chloride 98, bicarb 36, anion gap of 7.9, BUN is 22, creatinine is 1, glucose 194, and calcium 8.9. Albumin 2.7. Stool occult positive for blood. MICROBIOLOGY: Blood cultures were negative. IMAGING: Nothing new. IMPRESSION: 1. Sepsis with unknown infectious etiology. 2. Acute respiratory failure secondary to chronic obstructive pulmonary disease exacerbation. 3. Volume overload. 4. Acute gastrointestinal blood loss. PLAN: At this time, she will continue with IV antibiotics for now. All cultures have been found to be negative. In relation to her respiratory failure, she is now improved. She is on nasal cannula. She is on antibiotics. She is on diuretic and she is also on neb treatments and Pulmonary is following very closely. She is also on IV steroids, which we will continue. GI was consulted due to underlying anemia in which she did undergo EGD and colonoscopy. Otherwise, we will continue same plan of care for now with no changes. Get a.m. labs. Dr. Posada will be available tomorrow. Also, talked with the nursing staff and they agree with plan of care. MD MASSIEL Pandey/MODL /[id number]
[2018-10-21] MEDS: AMITRIPTYLINE HCL 25 MG TAB PO SCH (21:26)
[2018-10-21] MEDS: MONTELUKAST SODIUM 10 MG TAB PO SCH (21:26)
[2018-10-22] VITALS (7 sets, daily range): BP systolic 115–168; BP diastolic 42–80
--- NOTE | 2018-10-22 01:35 | NUR ---
RECEIVED PT IN BED AOX2 .,PT HAS F/C DRAINING YELLOW URINE.PT REFUSED BIPAP AT NIGHT PT IS O2 2LN/C .CALL LIGHT WITH IN REACH .CONTINUE TO MONITOR
--- NOTE | 2018-10-22 04:42 | NUR ---
PT RESTING AND DENIES PAIN NO ACUTE DISTRESS NOTED .CALL LIGHT WITH IN REACH CONTINUE TO MONITOR
[2018-10-22 05:58] LABS: BASOPHILS % 0.1 % (0.0-1.0); EOSINOPHILS % 0.2 % (0.0-6.0); HEMOGLOBIN 9.3 g/dL (12.0-16.0); LYMPHOCYTES # (AUTO) 0.9 (1.0-3.2); LYMPHOCYTES % 9.7 % (18.0-39.1); MEAN CORPUSCULAR HEMOGLOBIN 27.5 pg (28-32); MEAN CORPUSCULAR HGB CONC 29.1 g/dL (31-35); MEAN CORPUSCULAR VOLUME 94.7 fL (81-99); MONOCYTES # (AUTO) 0.2 (0.2-0.8); MONOCYTES % 2.1 % (4.4-11.3); NEUTROPHILS # (AUTO) 7.7 (2.1-6.9); NEUTROPHILS % 87.1 % (38.7-80.0); PLATELET COUNT 228 x10e3/uL (140-360); RED BLOOD COUNT 3.38 x10e6/uL (3.6-5.1); RED CELL DISTRIBUTION WIDTH 14.5 % (11.7-14.4)
[2018-10-22] MEDS: ALBUTEROL/IPRATROPIUM 3 ML NEB NEB SCH ×3 (06:00→19:30)
[2018-10-22] MEDS: BUDESONIDE 0.5MG/2 ML NEB INH SCH ×2 (06:00→19:30)
[2018-10-22 06:07] LABS: ALANINE AMINOTRANSFERASE 24 IU/L (0-55); ALBUMIN 2.9 g/dL (3.5-5.0); ALKALINE PHOSPHATASE 62 IU/L (40-150); ANION GAP 6.9 mmol/L (8-16); BLOOD UREA NITROGEN 20 mg/dL (7-26); BUN/CREATININE RATIO 24 (6-25); CALCIUM 9.4 mg/dL (8.4-10.2); CARBON DIOXIDE 38 mmol/L (22-29); CHLORIDE 97 mmol/L (98-107); CREATININE, SERUM 0.85 mg/dL (0.57-1.11); EST GLOMERULAR FILTRATION RATE > 60 ML/MIN (60-); GLUCOSE 222 mg/dL (74-118); POTASSIUM 4.9 mmol/L (3.5-5.1); SODIUM 137 mmol/L (136-145)
[2018-10-22] MEDS: METRONIDAZOLE 500MG/NS 100ML 100 ML IV SCH ×3 (06:10→22:35)
[2018-10-22] MEDS: DILTIAZEM HCL 60 MG TAB PO SCH ×3 (06:11→20:28)
[2018-10-22] MEDS: HYDROCODONE/APAP 5MG-325MG TAB PO PRN ×2 (06:15→20:25)
--- NOTE | 2018-10-22 06:58 | NUR ---
REPORT GIVEN TO THE ONCOMING NURSE
--- NOTE | 2018-10-22 07:10 | NUR ---
BEDSIDE ROUNDS COMPLETE NO DISTRESS NOTED, UPDATED ON POC VOICED UNDERSTANDING, O2 @ 4L NC, DAVIES TO BSD WITH YELLOW URINE NOTED, R AND L HAND 20G NO SS OF INFILTRATION NOTED, NO OTHER CO VOICED CALL LIGHT IN REACH WILL CONTINUE TO MONITOR
[2018-10-22] MEDS: INSULIN LISPRO 100 UNIT/1 ML 3ML VIAL SQ SCH ×4 (07:30→21:00)
[2018-10-22] MEDS: METHYLPREDNISOLONE SOD SUCC 40 MG/ML VIAL 1ML IV SCH ×2 (08:29→20:27)
[2018-10-22] MEDS: PANTOPRAZOLE SOD 40 MG TABEC PO SCH (08:29)
--- NOTE | 2018-10-22 12:15 | NUR ---
ORDER RECEIVED FOR [facility] / [facility]. GUANAKO MET W THE PT AT THE BEDSIDE W BEDSIDE NURSE PRESENT. PT WAS VERY HARD TO AROUSE AND SEEMED VERY DIFFERENT. GUANAKO INFORMED THE NURSE AND THE PT I WILL GET CONSENT FROM THE PT'S DTR.
[2018-10-22] MEDS: AZITHROMYCIN 250MG/NS 100 ML 100 ML IV SCH (12:28)
--- NOTE | 2018-10-22 14:17 | NUR ---
Nutrition Screen Note RD Recommendation for Physician: -Rec adding ADA 1800 to GI soft diet as medically appropriate Plan of Care: RD following, monitoring for tolerance and adequacy Nutrition reason for involvement: LOS Primary Diagnose(s): 1. Sepsis with unknown infectious etiology. 2. Acute respiratory failure secondary to chronic obstructive pulmonary disease exacerbation. 3. Volume overload. 4. Acute gastrointestinal blood loss. PMH: COPD, CAD, HTN, diabetes Ht: 61in Wt: 193.56lb BMI: 36.6kg/m2 IBW: 105lb RD Assessment: (10/22) Chart reviewed. Labs and meds reviewed. 72yo F, who was admitted for SOB. Visited pt in the room. Pt reported fair appetite with ~50-75% meal intake. Pt stated my appetite is getting better today. No complains of nausea or vomiting. Pt denied any chewing or swallowing difficulty. No recent weight loss reported. Will continue to monitor and follow. Current Diet: GI soft diet Malnutrition Evaluation (10/22/2018) The patient does not meet criteria for a specified degree of malnutrition at this time. Will re-evaluate at follow-up as appropriate. Diet Education Needs Assessment: Diet education not indicated. Nutrition Care Level: low Signed: Flor Barnett, MS, RD, LD
--- NOTE | 2018-10-22 14:43 | NUR ---
CALL WAS MADE TO PT'S DTR; VIMAL JOINER @ [phone]. DISCUSSED LT[facility]. DTR CONSENTED TO [facility]. INFORMED PT MAY MOVE QUICKLY. DTR ASKED TO BE CALLED WHEN PT IS TRANSFERRED. MICHAEL RUST NOTIFIED. MOT INITIATED.
[2018-10-22] MEDS: CEFTRIAXONE SOD 1 GM/NS 50 ML 50 ML IV SCH (15:25)
--- NOTE | 2018-10-22 17:27 | NUR ---
DAVIES DC'D PER ORDERED, BULB DEFLATED, TIP INTACT PT TOLERATED WELL, PT DTV [id number],
--- NOTE | 2018-10-22 19:00 | NUR ---
patient aggressive with nursing, refused fs.
--- NOTE | 2018-10-22 19:09 | NUR ---
REPORT GIVEN TO TRANSPORTATION ASSOCIATE RN, NO DISTRESS NOTED, DENIES PAIN AT THIS TIME, CALL LIGHT IN REACH WILL CONTINUE TO MONITOR
[2018-10-22] MEDS: AMITRIPTYLINE HCL 25 MG TAB PO SCH (20:27)
[2018-10-22] MEDS: MONTELUKAST SODIUM 10 MG TAB PO SCH (20:27)
[2018-10-23] VITALS (7 sets, daily range): BP systolic 116–178; BP diastolic 42–74
[2018-10-23] MEDS: ALBUTEROL/IPRATROPIUM 3 ML NEB NEB SCH ×5 (00:30→23:50)
[2018-10-23] MEDS: METRONIDAZOLE 500MG/NS 100ML 100 ML IV SCH ×3 (06:35→22:05)
[2018-10-23] MEDS: DILTIAZEM HCL 60 MG TAB PO SCH ×3 (06:36→22:05)
--- NOTE | 2018-10-23 07:07 | NUR ---
PATIENT ENDORSED TO NEXT SHIFT FOR CONTINUITY OF CARE.
[2018-10-23] MEDS: BUDESONIDE 0.5MG/2 ML NEB INH SCH ×2 (07:10→20:20)
[2018-10-23] MEDS: INSULIN LISPRO 100 UNIT/1 ML 3ML VIAL SQ SCH ×4 (07:57→21:02)
[2018-10-23] MEDS: PANTOPRAZOLE SOD 40 MG TABEC PO SCH (08:03)
[2018-10-23] MEDS: METHYLPREDNISOLONE SOD SUCC 40 MG/ML VIAL 1ML IV SCH ×2 (08:52→22:05)
[2018-10-23] MEDS: AZITHROMYCIN 250MG/NS 100 ML 100 ML IV SCH (11:39)
[2018-10-23] MEDS: CEFTRIAXONE SOD 1 GM/NS 50 ML 50 ML IV SCH (14:40)
--- NOTE | 2018-10-23 15:51 | NUR ---
LONG-TERM ACUTE CARE DISCHARGE INFORMATION PATIENT HAS BEEN ACCEPTED TO: NAME: [facility] ADDRESS: [address], [place] [address] ACCEPTING CURRICULUM AND INSTRUCTION SPECIALIST: YAMILE DE LEON, WING COMMANDER ACCEPTING MD: DR. DEAN GARCIA ROOM: [id number] NURSE CALL REPORT TO: [phone] THE FOLLOWING DOCUMENTS MUST ACCOMPANY PATIENT FOR TRANSFER: COPIED CHART: SENIOR SUSTAINABILITY CONSULTANT MOT INFO RECEIVED FROM: KASSY MANE [facility]YS[facility]IANS ORDER/RECONCILED MED LIST: BY BEDSIDE NURSEClaudia MORTON [id number] DNR: N/A
--- NOTE | 2018-10-23 18:28 | NUR ---
paged to update with patient's aggressive behavior. pt trying to get out of bed, attempting to hit/grab at staff, and cursing/inappropriate abusive language towards staff. yelling can be heard throughout lynn and into other units. refusing to wear oxygen and pulled out her p.iv. pt refusing to allow staff to replace iv.
--- NOTE | 2018-10-23 18:44 | NUR ---
spoke with Dr. Posada with new orders
[2018-10-23] MEDS ORDERED: QUETIAPINE FUMARATE 25 MG TAB PO PRN (18:45)
--- NOTE | 2018-10-23 19:00 | NUR ---
Report received from JEREMIAH Ayala. Patient received alert x1 shouting and confused at this time. Denied pain and no SOB. Bed in lower position,locked. Call gregorio within reach. Patient instructed to call for help as needed,verbalized and understand. Bed alarm on. Will continue to monitor.
[2018-10-23] MEDS: MONTELUKAST SODIUM 10 MG TAB PO SCH (20:37)
[2018-10-23] MEDS: AMITRIPTYLINE HCL 25 MG TAB PO SCH (20:37)
--- NOTE | 2018-10-23 21:30 | NUR ---
Started new IV on right AC at this time.
--- NOTE | 2018-10-23 22:30 | NUR ---
Patient confused, pulled out IV and chest leads and oxygen at this time. Started new IV again on her right wrist 20g at this time. Will continued to monitor.
[2018-10-23] MEDS ORDERED: SODIUM CHLORIDE 0.9% 250ML 250 ML ONE (22:45)
[2018-10-24] VITALS: BP 141/92
[2018-10-24] MEDS: HYDROCODONE/APAP 5MG-325MG TAB PO PRN (02:29)
--- NOTE | 2018-10-24 02:35 | NUR ---
Patient heart rate at this time,Patient was anxious and so confused and complaining SOB. Assisted to put BIPAP on, could not tolerated after 5minutes. Patient asked to took off. Continued on 3liters Via nasal canula,Spo2 100%. Called to get ordered, left voice massages,waiting of MD's call back at this time.
[2018-10-24 04:00] VITALS: BP 104/60
[2018-10-24] MEDS: DILTIAZEM HCL 60 MG TAB PO SCH (05:15)
[2018-10-24] MEDS: METRONIDAZOLE 500MG/NS 100ML 100 ML IV SCH (05:15)
--- NOTE | 2018-10-24 07:01 | NUR ---
Report given to oncoming nurse. Walking round done.No issued noted.
[2018-10-24 07:30] VITALS: BP 110/90
[2018-10-24] MEDS: PANTOPRAZOLE SOD 40 MG TABEC PO SCH (07:30)
--- NOTE | 2018-10-24 07:30 | NUR ---
Patient is sleeping in bed in NAD, respirations are equal and unlabored, on 2L O2 NC sats 100%. Patient easily arouses to verbal stimuli. She is oriented to name, , thought it was 2009 and does not know where she is at. Patient reoriented to surroundings. She was instructed to call for assistance as needed and nodded yes. Bed in lowest position, locked, bed alarm on and call gregorio within reach. Will continue to monitor.
[2018-10-24] MEDS: ALBUTEROL/IPRATROPIUM 3 ML NEB NEB SCH (07:40)
[2018-10-24] MEDS: BUDESONIDE 0.5MG/2 ML NEB INH SCH (07:45)
[2018-10-24 08:00] VITALS: BP 110/90
[2018-10-24] MEDS: INSULIN LISPRO 100 UNIT/1 ML 3ML VIAL SQ SCH (08:09)
[2018-10-24] MEDS: METHYLPREDNISOLONE SOD SUCC 40 MG/ML VIAL 1ML IV SCH (08:09)
--- NOTE | 2018-10-24 08:30 | NUR ---
Dr. Posada making rounds. Patient will be discharging to [facility] today per MD. manager residential calling [facility] for room assignment
--- NOTE | 2018-10-24 09:20 | NUR ---
Dr. Parisi rounding and agreeable to transfer patient to [facility].
--- NOTE | 2018-10-24 09:23 | NUR ---
Report called to JEREMIAH Gonzalez at [facility]. Daughter Carmen Nunn called @[phone] and notified of discharge to [facility].
--- NOTE | 2018-10-24 09:27 | Discharge Summary ---
CONSULTANTS: 1. Dr. Concetta Parisi. 2. Dr. Erica Seaman. 3. Dr. Sonido Patel. FINAL DIAGNOSES: 1. Status post sepsis associated with pneumonia and urinary tract infection. 2. Status post acute blood loss anemia with iron deficiency anemia and status post colonoscopy, EGD. Findings consistent with gastritis and melanosis coli with uncomplicated internal hemorrhoids. 3. Pneumonia community acquired. 4. Acute exacerbation of chronic obstructive pulmonary disease. 5. Status post respiratory failure. 6. Status post blood transfusion with severe hemoglobin and hematocrit of 5.3 and 18. SUMMARY: The patient is a 72-year-old female came in with increasing shortness of breath and respiratory failure, required BiPAP. The patient's hemoglobin and hematocrit were quite low as mentioned. The patient did receive 3 units of blood transfusion for symptomatic anemia. The patient was placed on BiPAP and also with acute exacerbation of chronic obstructive pulmonary disease. At baseline, the patient has COPD. She was a smoker. The patient improved with IV Solu-Medrol and support of nebulizer and BiPAP. She underwent EGD and colonoscopy, finding as mentioned above. Overall, the patient was stable. She continued to improve, therefore was transferred out of the ICU. Chest x-ray was done, showing vascular congestion. CT abdomen and pelvis showed bilateral lower lobe atelectasis with superimposed multifocal pneumonia. The patient also has gallstones without evidence of any acute cholecystitis. She has extensive vascular disease with atherosclerosis. The patient is stable now. She is comfortable. She will continue with treatment. We will monitor the patient. Hemoglobin and hematocrit today is 9.3 and 32 with platelets of [id number]. The patient is stable. BUN of 20 and creatinine of 0.85. The patient's sugars showed 222. The patient will continue with insulin sliding scale coverage and antibiotics. She will continue to be monitored closely. She does not have any much of physical therapy due to her declining, but she is needing the treatment. The patient now need this placement. She has lost her apartment as well. She most likely need long-term placement. In the meantime, the patient will go to long-term acute care with [facility] and we will continue to monitor the patient, treat her medical problems and then do discharge planning from the facility. MD JUDI Simms/LEATHA /[id number]
--- NOTE | 2018-10-24 10:49 | NUR ---
Patient discharged via stretcher to [facility] with all belongings in stable condition.
== END 2018-10-24 10:49 | DRG 871 ==
LOC: ER 14:33 → ERHOLD 16:28 → ICU 17:14 → IMCU 10-19 15:00 → ICU 10-23 13:35 → IMCU 10-23 13:43
PROVIDERS: ADMIT Internal Medicine; ATTEND Internal Medicine
PROC: 0DB78ZX Excision of Stomach, Pylorus, Via Natural or Artificial Opening Endoscopic, Diagnostic (ICD-10-PCS; principal; 2018-10-20 07:00)
PROC: 0DBK8ZX Excision of Ascending Colon, Via Natural or Artificial Opening Endoscopic, Diagnostic (ICD-10-PCS; 2018-10-20 07:00)
DX: A41.9 Sepsis, unspecified organism (principal); J18.9 Pneumonia, unspecified organism; J96.02 Acute respiratory failure with hypercapnia; J96.01 Acute respiratory failure with hypoxia; I50.33 Acute on chronic diastolic (congestive) heart failure; J44.1 Chronic obstructive pulmonary disease with (acute) exacerbation; D62 Acute posthemorrhagic anemia; N39.0 Urinary tract infection, site not specified; J44.0 Chronic obstructive pulmonary disease with (acute) lower respiratory infection; Z68.41 Body mass index [BMI] 40.0-44.9, adult; D50.9 Iron deficiency anemia, unspecified; Z99.81 Dependence on supplemental oxygen; K44.9 Diaphragmatic hernia without obstruction or gangrene; K29.70 Gastritis, unspecified, without bleeding; Z87.891 Personal history of nicotine dependence; E66.9 Obesity, unspecified; Z90.49 Acquired absence of other specified parts of digestive tract; E11.9 Type 2 diabetes mellitus without complications; H54.62 Unqualified visual loss, left eye, normal vision right eye; I11.0 Hypertensive heart disease with heart failure; F41.9 Anxiety disorder, unspecified
CPT/HCPCS: 36415; 36600; 43239; 45380; 71045; 74176; 80048; 80053; 82270; 82550; 82553; 82607; 82728; 82746; 82805; 82948; 83540; 83605; 83735; 83880; 84100; 84443; 84466; 84484; 85025; 85045; 85610; 86850; 86900; 86920; 87040; 88305; 88312; 93005; 93306; 94640; 94660; 96372; 97139; 99284; J0696; J1160; J1940; J2001; J2920; J7030; J7040; J7050; P9016

== ENCOUNTER 2018-11-20 15:16 | Inpatient (IN) | payer MEDICARE ==
[~2018-11-20] VITALS: Ht 154.9 cm; Wt 90.7 kg
[2018-11-20] VITALS (9 sets, daily range): BP systolic 120–149; BP diastolic 60–114
[~2018-11-20 15:16] MED LIST: AMITRIPTYLINE H25 MG PO; ASPIRIN81 MG; BREO; DILTIAZEM 24HR240 MG; HYDROCODON-ACE1 EA11; METFORMIN HCL500 MG PO; METOPROLOL TART50 MG PO; MONTELUKAST SOD10 MG PO; PREDNISONE10 MG PO; ULTRAM50 MG PO; bevespi IH
--- OUTSIDE RECORDS SUMMARY | 2018-11-20 15:24 | XMS REPORT | Clinical Summary ---
Author Author [facility] Organization [facility] Address Unknown Phone Unavailable Care Team Providers Care Auto Service Representative Name Role Phone Asked, No Pcp PCP [...] Last Done Comments BREAST CANCER SCREENING 12/01/1995 COLONOSCOPY SCREENING 12/01/1995 SHINGLES VACCINES (#1) 12/01/1995 65+ PNEUMOCOCCAL VACCINE 2010 (1 of 2 - PCV13) INFLUENZA VACCINE 12/10/2018 Implants Device Identifier Shelf Expiration Date Model / Serial / Lot Implanted Type Area [facility] er [id number] / / [id number] Solution Tisseel 4ml Fibrin Selnt Surgical N/A: N/A KAYE Syr Prfild - [id number] Implants; BIOSCIENCE Implanted: Qty: 1 on 02/28/2017 by [employer]; Annabelle Bell, Extenders; Surgical Wires Results Not on fileafter 11/19/2017 Insurance Type Payer Benefit Subscriber ID Effective Phone Address Plan / Dates Group Medicare MEDICARE MEDICARE xxxxxxxxxx 2008-P ALEX, PART A AND chelsey Rios Advance Directives Patient has advance care planning documents, and code status on file. For more i nformation, please contact: Alex Crane [address] [place] [address] Date Inactivated Comments Code Status Date Activated 03/04/2017 1:24 AM Full Code 02/28/2017 1:29 PM Code Status decision reached by: Patient
[2018-11-20] MEDS ORDERED: PANTOPRAZOLE 40 MG 10ML VIAL IV ONE (15:31)
[2018-11-20] MEDS ORDERED: IPRATROPIUM BROMIDE 0.02% 2.5 ML NEB NEB STA (15:31)
[2018-11-20] MEDS ORDERED: ALBUTEROL SULF 0.083% NEB SOLN 3 ML NEB NEB STA (15:31)
[2018-11-20] MEDS ORDERED: METHYLPREDNISOLONE SOD SUCC 125 MG/2ML VIAL IV STA (15:31)
[2018-11-20] MEDS ORDERED: SODIUM CHLORIDE 0.9% 1000ML 1,000 ML IV STA (15:31)
[2018-11-20] MEDS ORDERED: PIPER-TAZ 3.375 GM 50 ML IV ONE (15:45)
[2018-11-20] MEDS ORDERED: FUROSEMIDE INJ 10 MG/ML 4 ML VIAL IV ONE (15:45)
[2018-11-20 15:47] LABS: ABG PH 7.26 (7.31-7.41)
[2018-11-20 15:48] LABS: ABG HCO3 46 mmol/L (23-28); ABG PCO2 103 mmHg (41-51); ABG PO2 179 mmHg (80-105)
[2018-11-20 15:48] LABS: BASOPHILS % 0.5 % (0.0-1.0); EOSINOPHILS # (AUTO) 0.1 (0.0-0.4); EOSINOPHILS % 1.1 % (0.0-6.0); HEMATOCRIT 35.5 % (34.2-44.1); HEMOGLOBIN 10.6 g/dL (12.0-16.0); LYMPHOCYTES # (AUTO) 0.8 (1.0-3.2); LYMPHOCYTES % 10.5 % (18.0-39.1); MEAN CORPUSCULAR HGB CONC 29.9 g/dL (31-35); MEAN CORPUSCULAR VOLUME 97.3 fL (81-99); MONOCYTES # (AUTO) 0.3 (0.2-0.8); MONOCYTES % 3.9 % (4.4-11.3); NEUTROPHILS # (AUTO) 6.2 (2.1-6.9); NEUTROPHILS % 83.7 % (38.7-80.0); PLATELET COUNT 191 x10e3/uL (140-360); RED BLOOD COUNT 3.65 x10e6/uL (3.6-5.1); RED CELL DISTRIBUTION WIDTH 15.7 % (11.7-14.4)
[2018-11-20] MEDS ORDERED: ACETAZOLAMIDE250 MG PO (15:48)
[2018-11-20] MEDS ORDERED: AUGMENTIN 875-1 EACH PO (15:49)
[2018-11-20] MEDS ORDERED: LAXATIVE SUPPOS10 MG PR (15:52)
[2018-11-20] MEDS ORDERED: DEPAKOTE250 MG PO (15:53)
[2018-11-20 15:54] LABS: BILIRUBIN,URINE NEGATIVE (NEGATIVE); CLARITY,URINE SL CLOUDY (CLEAR); COLOR,URINE YELLOW (YELLOW); KETONES,URINE NEGATIVE (NEGATIVE); LEUKOCYTE ESTERASE ,URINE NEGATIVE (NEGATIVE); NITRITE,URINE NEGATIVE (NEGATIVE); PROTEIN,URINE DIPSTICK NEGATIVE (NEGATIVE); URINE UROBILINOGEN 0.2 mg/dL (0.2 - 1)
[2018-11-20] MEDS ORDERED: DILTIAZEM 24HR120 M1 PO (15:54)
[2018-11-20] MEDS ORDERED: LOSARTAN POTASS25 MG PO ×2 (15:56→16:00)
[2018-11-20] MEDS ORDERED: METOPROLOL TART25 MG PO (15:57)
[2018-11-20 16:09] LABS: BACTERIA,URINE RARE /HPF; EPITHELIAL CELLS,URINE RARE /LPF; RENAL EPITHELIAL CELLS,URINE RARE; TRANSITIONAL EPI CELLS,URINE RARE
[2018-11-20 16:10] LABS: YEAST,URINE RARE
--- NOTE | 2018-11-20 16:24 | Diagnostic Imaging Report ---
Chest, 1 view, 11/20/2018. History: ] Shortness of breath. Comparison: 10/19/2018. Findings: The cardiomediastinal silhouette and pulmonary vasculature are within normal limits for a portable exam. There are increased bibasilar opacities, right greater than left. There are no acute osseous or soft tissue abnormalities. Impression: Increased bibasilar opacities may represent worsening asymmetric edema but pneumonia cannot be excluded. Signed by: Luis M Newton on 11/20/2018 4:21 PM
[2018-11-20] MEDS ORDERED: ASPIRIN 81 MG CHEW TAB PO ONE (16:30)
[2018-11-20] MEDS ORDERED: ALBUTEROL SULF 0.083% NEB SOLN 3 ML NEB NEB PRN (16:30)
[2018-11-20] MEDS ORDERED: SODIUM CHLORIDE FLUSH 10 ML SYR INJ PRN (16:30)
[2018-11-20] MEDS ORDERED: ENOXAPARIN SOD INJ 40 MG/0.4 ML SYR SC SCH (17:00)
[2018-11-20 17:25] LABS: ALANINE AMINOTRANSFERASE 17 IU/L (0-55); ALBUMIN 2.8 g/dL (3.5-5.0); ALBUMIN/GLOBULIN RATIO 0.8 (0.8-2.0); ALKALINE PHOSPHATASE 60 IU/L (40-150); ANION GAP 12.5 mmol/L (8-16); BLOOD UREA NITROGEN 14 mg/dL (7-26); BUN/CREATININE RATIO 16 (6-25); CALCIUM 9.3 mg/dL (8.4-10.2); CHLORIDE 92 mmol/L (98-107); CREATINE KINASE 60 IU/L (29-168); CREATININE, SERUM 0.89 mg/dL (0.57-1.11); EST GLOMERULAR FILTRATION RATE > 60 ML/MIN (60-); GLUCOSE 213 mg/dL (74-118); LIPASE 11 U/L (8-78); MAGNESIUM 1.9 MG/DL (1.3-2.1); POTASSIUM 4.5 mmol/L (3.5-5.1); SODIUM 144 mmol/L (136-145)
[2018-11-20 17:27] LABS: ABG HCO3 45 mmol/L (23-28); ABG PCO2 93 mmHg (41-51); ABG PO2 105 mmHg (80-105)
[2018-11-20 17:28] LABS: CARBON DIOXIDE 44 mmol/L (22-29)
[2018-11-20 17:44] LABS: THYROID STIMULATING HORMONE 0.731 uIU/mL (0.350-4.940)
[2018-11-20] MEDS ORDERED: SODIUM CHLORIDE 0.9% 1000ML 1,000 ML ONE (18:35)
[2018-11-20] MEDS: DIVALPROEX SODIUM 250 MG TAB...DR PO SCH (21:06)
[2018-11-20] MEDS: METOPROLOL TARTRATE 25 MG TAB PO PRN (21:15)
[2018-11-20] MEDS: PIPER-TAZ 3.375 GM 50 ML IV SCH (22:06)
[2018-11-20] MEDS: METHYLPREDNISOLONE SOD SUCC 125 MG/2ML VIAL IV SCH (22:06)
[2018-11-20] MEDS: IPRATROPIUM BROMIDE 0.02% 2.5 ML NEB NEB SCH (23:15)
[2018-11-21] VITALS (24 sets, daily range): BP systolic 110–152; BP diastolic 51–118
--- NOTE | 2018-11-21 00:21 | Consultation ---
DATE OF CONSULTATION: 11/20/2018 Pulmonary Critical Care Consultation CONSULTING PHYSICIAN: Deon Yanez MD. CHIEF COMPLAINT: Hypercapnia and decreased responsiveness. HISTORY OF PRESENT ILLNESS: The patient is a 72-year-old woman. She has a history of COPD. She uses oxygen at home. She was recently admitted to [facility] in October of this year. She required packed red blood cells for hemoglobin of 5.3. She also required treatment for pneumonia and hypercapnic respiratory failure. She was subsequently transferred to [facility] and apparently was doing well. She was discharged to [facility] several days ago. She now returns with some difficulty breathing. She has worsening congestion and increased somnolence. In the Emergency Department, she was found to be hypercapnic and was placed on BiPAP and given Solu-Medrol along with bronchodilators with some improvement. PAST MEDICAL HISTORY: 1. COPD. 2. Hypertension. PAST SURGICAL HISTORY: Colonoscopy and EGD on last admission that showed hiatal hernia and gastritis. SOCIAL HISTORY: The patient is a former smoker. She is not an active drinker. ALLERGIES: THERE ARE NO KNOWN DRUG ALLERGIES. FAMILY HISTORY: Family history is noncontributory. REVIEW OF SYSTEMS: The patient is afebrile. She does not complain of headache or neck pain. She has no sore throat. She does not complain of chest pain. She does have some congestion and increased dyspnea. She does not have abdominal pain, nausea or vomiting. She has mild leg swelling. PHYSICAL EXAMINATION: VITAL SIGNS: The blood pressure is 110/90 and saturation is 100%. She is on BiPAP at this time. She is afebrile. Her pulse is 84. HEENT: Shows no facial swelling or erythema. The nasal mucosa is normal. The oropharynx is normal. LYMPHATIC: Shows no submandibular, cervical, or supraclavicular adenopathy. CARDIAC: Reveals regular rate and rhythm with normal S1 and S2. There are no murmurs or rubs. LUNGS: Auscultation of lungs reveals decreased breath sounds at the bases with a prolonged expiratory phase. There is no abdominal pain or tenderness. There is 2+ leg edema. The patient is somnolent, but arousable. She has no focal abnormalities. LABORATORY DATA: Blood gas on admission showed a pH of 7.26 with a CO2 of 103. After receiving BiPAP, CO2 is decreased to 93 and her pH is improved to 7.3. Her hemoglobin is 10.6 and a white blood cell count is normal. Her platelet count is 191. RADIOGRAPHIC DATA: Shows bibasilar opacities suggesting possible pneumonia versus atelectasis. IMPRESSION: 1. Kdzsz-pj-ifcfzha hypercapnic respiratory failure. 2. Obesity. 3. Hypertension. 4. Diabetes. 5. Anemia, unspecified. PLAN: 1. The patient will be continued on Solu-Medrol and bronchodilators. 2. Continue BiPAP and repeat blood gas tomorrow. 3. Continue current antibiotics until culture results are available. 4. The patient was being followed by Dr. Seaman at [facility] and previously at [facility]. He will resume care for pulmonary tomorrow. Allen Gutierrez MD [facility]/MODL /[id number]
[2018-11-21] MEDS: IPRATROPIUM BROMIDE 0.02% 2.5 ML NEB NEB SCH ×3 (03:25→19:00)
[2018-11-21 05:17] LABS: HEMATOCRIT 35.6 % (34.2-44.1); HEMOGLOBIN 10.4 g/dL (12.0-16.0); LYMPHOCYTES # (AUTO) 0.6 (1.0-3.2); LYMPHOCYTES % 14.7 % (18.0-39.1); MEAN CORPUSCULAR HEMOGLOBIN 28.4 pg (28-32); MEAN CORPUSCULAR HGB CONC 29.2 g/dL (31-35); MEAN CORPUSCULAR VOLUME 97.3 fL (81-99); MONOCYTES % 1.1 % (4.4-11.3); NEUTROPHILS # (AUTO) 3.1 (2.1-6.9); NEUTROPHILS % 83.9 % (38.7-80.0); PLATELET COUNT 168 x10e3/uL (140-360); RED BLOOD COUNT 3.66 x10e6/uL (3.6-5.1); RED CELL DISTRIBUTION WIDTH 15.5 % (11.7-14.4)
[2018-11-21 05:43] LABS: ALANINE AMINOTRANSFERASE 16 IU/L (0-55); ALBUMIN 2.7 g/dL (3.5-5.0); ALBUMIN/GLOBULIN RATIO 0.8 (0.8-2.0); ALKALINE PHOSPHATASE 55 IU/L (40-150); ANION GAP 14.7 mmol/L (8-16); BLOOD UREA NITROGEN 15 mg/dL (7-26); BUN/CREATININE RATIO 17 (6-25); CALCIUM 9.3 mg/dL (8.4-10.2); CHLORIDE 92 mmol/L (98-107); EST GLOMERULAR FILTRATION RATE > 60 ML/MIN (60-); GLUCOSE 172 mg/dL (74-118); PHOSPHORUS 3.6 MG/DL (2.3-4.7); POTASSIUM 4.7 mmol/L (3.5-5.1); SODIUM 144 mmol/L (136-145)
[2018-11-21 05:44] LABS: CARBON DIOXIDE 42 mmol/L (22-29)
[2018-11-21] MEDS: METHYLPREDNISOLONE SOD SUCC 125 MG/2ML VIAL IV SCH (06:07)
[2018-11-21] MEDS: PIPER-TAZ 3.375 GM 50 ML IV SCH ×2 (06:07→13:03)
[2018-11-21 06:10] LABS: CREATINE KINASE MB 2.4 ng/mL (0-5.0)
--- NOTE | 2018-11-21 07:36 | Diagnostic Imaging Report ---
A single frontal view of the chest. HISTORY: COPD COMPARISON: Chest radiograph November 20, 2018 DISCUSSION: Portable technique, limits sensitivity of the exam. Soft tissue attenuation partially limits sensitivity of the exam. Overlying artifacts. Marked right anterior oblique rotation. Tubes/Lines: Overlying monitoring leads. Lungs and pleura: Low lung volumes result in bibasilar vascular crowding, accentuation of the pulmonary interstitial markings, central pulmonary vasculature, and the cardiac silhouette. Allowing for these limitations, the findings are as follows: Bibasilar atelectasis. Bilateral increased patchy interstitial and airspace opacities, right greater than left. Confluent opacities partially obscure the right hemidiaphragm greater than the left. Heart and mediastinum: The cardiomediastinal silhouette is partially obscured. Bones and soft tissues: Appear unremarkable, given this limited exam. IMPRESSION: 1. Right greater than left pleural effusions with adjacent atelectasis. 2. Allowing for the differences in exams, likely stable edema versus multifocal pneumonia. Signed by: Dr. Tyler Pastrana D.O., M.M.M. on 11/21/2018 7:33 AM
[2018-11-21] MEDS: DIVALPROEX SODIUM 250 MG TAB...DR PO SCH ×2 (08:34→21:00)
[2018-11-21] MEDS: PANTOPRAZOLE 40 MG 10ML VIAL IV SCH (08:34)
[2018-11-21] MEDS: LOSARTAN POTASSIUM 25 MG TAB PO SCH (08:34)
[2018-11-21] MEDS: METOPROLOL TARTRATE 25 MG TAB PO PRN (08:35)
--- NOTE | 2018-11-21 08:44 | NUR ---
H&P cc: sob HPI: 72yoF, transferred from [facility] due to worsening SOB, with hx COPD, recent PNA and sepsis, needed BIPAP initiation. PMH: severe anemia, syncope, PNA, sepsis, UTI, Acute resp failure on BIPAP, COPD, DM2, anxiety d/o, HTN PSHx:unknown Allergies; see emr FH/SH: no illicits Meds; see MAR ROS: unobtainable v/s; revd PE: tired appearing anicteric ns1s2 reduced BS; reduced at bases soft nt nd no e/t awake; srinivasan skin dry flat affect labs/meds;revd A/P Acute resp failure Acute exa Diastolic CHF B/L pleural effusion COPD DM2 Anxiety d/o PLAN BIPAP; may need bipap start lasix nebs/steroids/abx scd cct>35mins Deon Yanez MD, PhD.
[2018-11-21] MEDS: FUROSEMIDE INJ 10 MG/ML 2 ML VIAL IV SCH ×2 (08:59→16:02)
[2018-11-21 09:07] LABS: ANISOCYTOSIS SLIGHT; HYPOCHROMASIA SLIGHT; LYMPHOCYTES % (MANUAL) 14 % (19-48); NEUTROPHILS % (MANUAL) 85 % (40-74); PLATELET ESTIMATE ADEQUATE; PLATELET MORPHOLOGY COMMENT NORMAL; RBC MORPHOLOGY COMMENT ABNORMAL
[2018-11-21] MEDS: ACETAZOLAMIDE 250 MG TAB PO SCH (11:41)
[2018-11-21] MEDS ORDERED: IPRATROPIUM BROMIDE 0.02% 2.5 ML NEB NEB SCH ×2 (12:00→15:00)
[2018-11-21] MEDS: METHYLPREDNISOLONE SOD SUCC 40 MG/ML VIAL 1ML IV SCH ×2 (13:01→21:20)
[2018-11-21] MEDS ORDERED: LORAZEPAM INJ 2 MG/ML VIAL ONE (13:11)
[2018-11-21] MEDS: LORAZEPAM INJ 2 MG/ML VIAL IV PRN ×2 (13:20→20:15)
[2018-11-21] MEDS: DIGOXIN INJ 0.25 MG/ML 2 ML AMP IV SCH ×2 (13:20→16:02)
[2018-11-21] MEDS: LEVALBUTEROL HCL SOLN NEBU 0.63 MG/3 ML NEB INH PRN (13:30)
[2018-11-21] MEDS ORDERED: DILTIAZEM HCL 5 MG/ML 5 ML VIAL IV PRN (13:30)
[2018-11-21] MEDS ORDERED: FUROSEMIDE INJ 10 MG/ML 4 ML VIAL IV NR (13:30)
[2018-11-21] MEDS ORDERED: DILTIAZEM HCL 5 MG/ML 5 ML VIAL IV NR (13:30)
--- NOTE | 2018-11-21 13:38 | NUR ---
PT IS [facility] CONTACT IS VIMAL JOINER [phone], DR MORAN FOLLOWS HER AT THE FACILITY, PT WAS CONFUSED AND UNABLE TO COMPLETE DPA.
[2018-11-21] MEDS ORDERED: ALBUTEROL SULF 0.083% NEB SOLN 3 ML NEB NEB SCH (15:00)
--- NOTE | 2018-11-21 15:00 | NUR ---
1040- Dr. Parisi's office called to notify of consult. 1250- Patient becoming increasingly agitated and yelling at staff, as well as disconnecting herself from the bipap despite frequent reorientation. Patient yelling that she is going to call the police. Dr. Yanez called, awaiting response back. 1300- Dr. Yanez paged back ordered prn ativan and one time dose lasix. 1305- Patient disconnected self from bipap and became tachypneic and desaturated into the 40's and HR increased to 150's running A fib. Respiratory at bedside. Patient reconnected to bipap. SUBSTATION OPERATOR HELPER GENERATION for Dr. Parisi's office at bedside as well. Orders given for Cardizem and digoxin. Will continue to monitor the patient.
[2018-11-21] MEDS: DILTIAZEM HCL ER 120 MG CAP PO SCH (17:00)
[2018-11-21 17:44] LABS: ABG PH 7.28 (7.31-7.41)
[2018-11-21 17:45] LABS: ABG HCO3 45 mmol/L (23-28); ABG PCO2 95 mmHg (41-51); ABG PO2 162 mmHg (80-105)
--- NOTE | 2018-11-21 18:34 | Consultation ---
DATE OF CONSULTATION: 11/21/2018 REASON FOR CONSULTATION: Atrial fibrillation. HISTORY OF PRESENT ILLNESS: This is a 72-year-old female with history of severe lung disease/COPD with recurrent hypercapnic respiratory failure, anemia with recent GI bleed in October 2018, diabetes, hypertension, atrial arrhythmias. The patient presents to [facility] ER after worsening shortness of breath and lethargy. On admission, she was noted with pCO2 of 103, was placed on BiPAP therapy and sent to the ICU for further evaluation, was noted in atrial fibrillation, therefore Cardiology was consulted. The patient is seen in the ICU. She is confused, unable to give any information. She is intermittently taking off her BiPAP machine. On monitor, the patient is in atrial fibrillation RVR with heart rate in the 140s to 150s. PAST MEDICAL HISTORY: Severe advanced lung disease, COPD, ex-heavy smoker, hypertension, obesity, diabetes, anemia, recent GI bleed in October 2018 with a hemoglobin of 8, received multiple blood transfusions, status post EGD showing gastritis. PAST SURGICAL HISTORY: Cholecystectomy. FAMILY HISTORY: No family history of premature heart disease. SOCIAL HISTORY: She is an ex-smoker. No alcohol use. REVIEW OF SYSTEMS: Unable to obtain since the patient is confused, was given Ativan. PHYSICAL EXAMINATION: GENERAL: This is an obese woman, in respiratory distress, on BiPAP. VITAL SIGNS: Height 61 inches, weight 213 pounds, BMI 40. Temperature 99.3, pulse 140, respiratory rate 22, blood pressure 137/98, and pulse ox 100% on BiPAP. HEENT: Pupils are equal, round, and reactive. Extraocular movements intact. Trachea midline. Normocephalic. No JVD. No carotid bruits noted. HEART: Irregular rate and rhythm. Tachycardic. Soft systolic murmur. LUNGS: On BiPAP, crackles throughout, poor airway entry and exit. ABDOMEN: Soft, nontender, and nondistended. No organomegaly noted. EXTREMITIES: No cyanosis, no clubbing. +2 bilateral radial pulses, +1 DP, PT pulses bilaterally. NEUROLOGIC: Unable to assess as the patient is confused and not following directions. LABORATORY DATA: Blood gas, pH 7.26, pCO2 103, pO2 179, bicarb 46. Chemistry; sodium 144, potassium 4.7, chloride 92, bicarb 42, BUN 15, creatinine 0.9, mag 2.0. Troponin is 0.02, 0.006, 0.005. BNP 461. CBC; white count 3.7, hemoglobin 10, hematocrit 35, platelets 168. Chest x-ray showing bibasilar opacities. EKG showing atrial fibrillation with RVR. ASSESSMENT: 1. Hypercapnic respiratory failure. 2. Chronic obstructive pulmonary disease exacerbation. 3. Atrial fibrillation. 4. Recent history of anemia with gastrointestinal bleed. Hemoglobin of 5 in October 2018, status post esophagogastroduodenoscopy and colonoscopy with noted gastritis. 5. Obesity. 6. Diabetes. PLAN: 1. The patient presents with [id number] hypercapnic respiratory failure, COPD exacerbation, noted in atrial fibrillation, and given her recent history of GI bleed with hemoglobin 5 and multiple blood transfusions, we will try rate and rhythm control. We will go ahead and give the patient diltiazem 10 mg IV now plus digoxin 0.25 mg IV x2, 2 hours apart. We will have the staff check an ABG. 2. We will continue the patient on telemonitoring. 3. Again given her recent GI bleed and with multiple blood transfusions, no anti-platelet or anticoagulation therapy. 4. We will continue to monitor the patient and adjust cardiac therapy as clinical course dictates. SEEN AND EVALUATED AGREE WITH NOTE Dictated by Shaquille Wood NP Concetta Parisi MD DC/LEATHA /[id number]
--- NOTE | 2018-11-21 19:29 | Diagnostic Imaging Report ---
EXAM: US CHEST INDICATION: Pleural effusion COMPARISON: Chest radiograph 11/21/2018 TECHNIQUE: Transverse and sagittal images were performed of the bilateral lower lateral chest. FINDINGS: Sweeping sonographic views of the bilateral pleural spaces from an anterolateral vantage demonstrate moderate right and small left simple pleural effusions. IMPRESSION: . Moderate right and small left simple pleural effusions. Signed by: Kristian Marshall DO on 11/21/2018 7:25 PM
--- NOTE | 2018-11-21 20:15 | NUR ---
Patient is agitated, hitting staff, yelling.
[2018-11-21] MEDS: FUROSEMIDE INJ 10 MG/ML 4 ML VIAL IV SCH (21:20)
[2018-11-22] VITALS (24 sets, daily range): BP systolic 114–168; BP diastolic 67–109
[2018-11-22] MEDS: IPRATROPIUM BROMIDE 0.02% 2.5 ML NEB NEB SCH ×4 (01:20→19:30)
[2018-11-22] MEDS: LORAZEPAM INJ 2 MG/ML VIAL IV PRN (02:20)
[2018-11-22] MEDS: METHYLPREDNISOLONE SOD SUCC 40 MG/ML VIAL 1ML IV SCH ×3 (05:21→23:00)
[2018-11-22 05:27] LABS: HEMATOCRIT 30.2 % (34.2-44.1); HEMOGLOBIN 8.8 g/dL (12.0-16.0); LYMPHOCYTES # (AUTO) 0.6 (1.0-3.2); LYMPHOCYTES % 10.3 % (18.0-39.1); MEAN CORPUSCULAR HEMOGLOBIN 28.3 pg (28-32); MEAN CORPUSCULAR HGB CONC 29.1 g/dL (31-35); MEAN CORPUSCULAR VOLUME 97.1 fL (81-99); MONOCYTES # (AUTO) 0.4 (0.2-0.8); MONOCYTES % 6.7 % (4.4-11.3); NEUTROPHILS # (AUTO) 5.1 (2.1-6.9); NEUTROPHILS % 82.7 % (38.7-80.0); PLATELET COUNT 134 x10e3/uL (140-360); RED BLOOD COUNT 3.11 x10e6/uL (3.6-5.1); RED CELL DISTRIBUTION WIDTH 15.7 % (11.7-14.4)
[2018-11-22 05:53] LABS: ANION GAP 11.9 mmol/L (8-16); BLOOD UREA NITROGEN 23 mg/dL (7-26); BUN/CREATININE RATIO 23 (6-25); CALCIUM 8.8 mg/dL (8.4-10.2); CHLORIDE 92 mmol/L (98-107); CREATININE, SERUM 0.99 mg/dL (0.57-1.11); EST GLOMERULAR FILTRATION RATE > 60 ML/MIN (60-); GLUCOSE 212 mg/dL (74-118); POTASSIUM 3.9 mmol/L (3.5-5.1); SODIUM 144 mmol/L (136-145)
[2018-11-22 05:56] LABS: CARBON DIOXIDE 44 mmol/L (22-29)
--- NOTE | 2018-11-22 06:31 | Diagnostic Imaging Report ---
EXAMINATION: CHEST SINGLE (PORTABLE) INDICATION: COPD COMPARISON: Chest radiograph 11/21/2018 FINDINGS: AP view TUBES and LINES: None. LUNGS: Hazy airspace opacities in the lower lungs likely due to layering pleural effusions. Pulmonary vascular prominence. PLEURA: Layering pleural effusions. No pneumothorax. HEART AND MEDIASTINUM: Cardiac size is mildly enlarged. Aortic arch calcifications. BONES AND SOFT TISSUES: No acute osseous lesion. Soft tissues are unremarkable. UPPER ABDOMEN: No free air under the diaphragm. IMPRESSION: Mild cardiomegaly with pulmonary vascular congestion and layering pleural effusions.. Signed by: Kristian Marshall DO on 11/22/2018 6:27 AM
[2018-11-22] MEDS: LEVALBUTEROL HCL SOLN NEBU 0.63 MG/3 ML NEB INH PRN ×2 (07:00→14:10)
[2018-11-22] MEDS: FUROSEMIDE INJ 10 MG/ML 4 ML VIAL IV SCH ×2 (08:21→20:26)
[2018-11-22] MEDS: PANTOPRAZOLE 40 MG 10ML VIAL IV SCH (08:21)
[2018-11-22] MEDS: DIVALPROEX SODIUM 250 MG TAB...DR PO SCH ×2 (09:35→21:00)
[2018-11-22] MEDS: DILTIAZEM HCL ER 120 MG CAP PO SCH ×2 (09:35→16:47)
[2018-11-22] MEDS: LOSARTAN POTASSIUM 25 MG TAB PO SCH (09:35)
[2018-11-22] MEDS ORDERED: DEXMEDETOMIDINE 200MCG/NS 50ML 50 ML IV ONE ×2 (09:44→22:54)
[2018-11-22] MEDS ORDERED: DEXMEDETOMIDINE 200MCG/NS 50ML 50 ML IV PRN ×2 (09:45→10:15)
[2018-11-22] MEDS ORDERED: DEXMEDETOMIDINE HCL 200 MCG in SODIUM CHLORIDE 0.9% 50ML 48 ML IV PRN (09:45)
--- NOTE | 2018-11-22 10:13 | NUR ---
IM- progress note O/N no events ROS: unobtainable v/s; revd PE: tired appearing anicteric ns1s2 reduced BS; reduced at bases soft nt nd no e/t awake; srinivasan skin dry flat affect labs/meds;revd A/P Acute resp failure Acute exa Diastolic CHF B/L pleural effusion COPD DM2 Anxiety d/o PLAN BIPAP; may need bipap start lasix nebs/steroids/abx scd cct>35mins cont care. BIPAP; sedated; cct>35mins. Deon Yanez MD, PhD.
[2018-11-22] MEDS: ACETAZOLAMIDE SODIUM 500 MG/VIAL IV SCH ×2 (14:05→23:00)
[2018-11-22] MEDS ORDERED: WATER STERILE 10 ML VIAL INJ PRN (14:15)
[2018-11-22] MEDS ORDERED: HYDRALAZINE HCL 20 MG/ML VIAL IV PRN (16:00)
[2018-11-22] MEDS ORDERED: DEXTROSE 50% SYRINGE 50 ML IV PRN (16:45)
--- NOTE | 2018-11-22 17:35 | NUR ---
Dr. Bravo rounded on pt this morning and ordered BIPAP for 24 hrs. Pt agitated and refusing BIPAP, Precedex ordered per Dr. Bravo. Interventional radiology consulted. Patient's daughter signed consent for thoracentesis. Dr. Parisi notified of patients HTN, orders prn given for hydralazine. Will continue to monitor the patient. Addendum: 11/22/18 at 1745 by Merary Davis RN Dr. Yanez notified of patients elevated BG. Orders given insulin sliding scale.
[2018-11-22] MEDS: INSULIN LISPRO 100 UNIT/1 ML 3ML VIAL SQ SCH (17:53)
--- NOTE | 2018-11-22 21:12 | NUR ---
Received pt with Precedex infusing at 0.7mcg/kg/hr. Pt moves on her own to touch face. Will monitor.
[2018-11-23] VITALS (25 sets, daily range): BP systolic 121–175; BP diastolic 53–102
[2018-11-23] MEDS: INSULIN LISPRO 100 UNIT/1 ML 3ML VIAL SQ SCH ×5 (00:25→23:34)
[2018-11-23] MEDS: IPRATROPIUM BROMIDE 0.02% 2.5 ML NEB NEB SCH ×4 (00:30→19:15)
[2018-11-23] MEDS ORDERED: DEXMEDETOMIDINE 200MCG/NS 50ML 50 ML IV ONE (03:56)
[2018-11-23] MEDS: DEXMEDETOMIDINE 200MCG/NS 50ML 50 ML IV PRN ×2 (03:58→13:19)
[2018-11-23] MEDS: LORAZEPAM INJ 2 MG/ML VIAL IV PRN (04:04)
[2018-11-23 05:34] LABS: ALANINE AMINOTRANSFERASE 13 IU/L (0-55); ALBUMIN 2.7 g/dL (3.5-5.0); ALBUMIN/GLOBULIN RATIO 0.9 (0.8-2.0); ALKALINE PHOSPHATASE 50 IU/L (40-150); ANION GAP 10.1 mmol/L (8-16); BLOOD UREA NITROGEN 25 mg/dL (7-26); BUN/CREATININE RATIO 30 (6-25); CALCIUM 9.2 mg/dL (8.4-10.2); CHLORIDE 92 mmol/L (98-107); CREATININE, SERUM 0.82 mg/dL (0.57-1.11); EST GLOMERULAR FILTRATION RATE > 60 ML/MIN (60-); GLUCOSE 160 mg/dL (74-118); POTASSIUM 4.1 mmol/L (3.5-5.1); SODIUM 143 mmol/L (136-145)
[2018-11-23 05:45] LABS: CARBON DIOXIDE 45 mmol/L (22-29)
[2018-11-23] MEDS: ACETAZOLAMIDE SODIUM 500 MG/VIAL IV SCH (05:52)
[2018-11-23] MEDS: METHYLPREDNISOLONE SOD SUCC 40 MG/ML VIAL 1ML IV SCH ×3 (05:53→22:16)
--- NOTE | 2018-11-23 06:24 | NUR ---
CO2 this am is 45. Paged and reported to Dr Hernández. No new orders.
[2018-11-23 09:40] LABS: INR 1.06; PROTHROMBIN TIME 14.3 seconds (11.9-14.5)
[2018-11-23] MEDS: PANTOPRAZOLE 40 MG 10ML VIAL IV SCH (09:40)
[2018-11-23] MEDS: FUROSEMIDE INJ 10 MG/ML 4 ML VIAL IV SCH ×2 (09:40→21:35)
[2018-11-23] MEDS: DIVALPROEX SODIUM 250 MG TAB...DR PO SCH ×2 (09:40→21:35)
[2018-11-23] MEDS: DILTIAZEM HCL ER 120 MG CAP PO SCH ×2 (09:40→17:51)
[2018-11-23] MEDS: LOSARTAN POTASSIUM 25 MG TAB PO SCH (09:40)
--- NOTE | 2018-11-23 12:30 | Diagnostic Imaging Report ---
PROCEDURE: Ultrasound-guided diagnostic and therapeutic thoracentesis Procedural Personnel Attending physician(s): Katty Olivares MD Fellow physician(s): None Resident physician(s): None Advanced practice provider(s): None Pre-procedure diagnosis: Right pleural effusion Post-procedure diagnosis: Same Indication: Pleural effusion with compromised respiration Additional clinical history: None Complications: No immediate complications. IMPRESSION: Ultrasound-guided thoracentesis with drainage of 350 mL of serous fluid. Plan: Postprocedural chest radiograph Resume care by clinical team. PROCEDURE SUMMARY: - Limited thoracic ultrasound - Ultrasound-guided thoracentesis - Additional procedure(s): None PROCEDURE DETAILS: Pre-procedure Consent: Informed consent for the procedure including risks, benefits and alternatives was obtained and time-out was performed prior to the procedure. Preparation: The site was prepared and draped using maximal sterile barrier technique including cutaneous antisepsis. Anesthesia/sedation Level of anesthesia/sedation: No sedation Anesthesia/sedation administered by: Not applicable Total intra-service sedation time (minutes): N/A Limited thoracic ultrasound Limited thoracic ultrasound was performed using a curved transducer. A safe window for thoracentesis was identified. Left hemithorax findings: Not assessed Right hemithorax findings: Small pleural effusion Thoracentesis Local anesthesia was administered. The pleural space was accessed under real-time ultrasound guidance and fluid return confirmed position. The fluid was drained. The catheter was removed, and a sterile bandage was applied. Catheter placed: 5F Dolores Post-drainage hemithorax findings: No visible pleural effusion Additional Details Additional description of procedure: None Equipment details: None Specimens removed: Pleural fluid sent for labs Estimated blood loss (mL): Less than 10 Standardized report: [id number] Attestation Signer name: Katty Olivares MD I attest that I was present for the entire procedure. I reviewed the stored images and agree with the report as written. Signed by: Katty Olivares MD on 11/23/2018 12:27 PM
--- NOTE | 2018-11-23 13:25 | NUR ---
Patient remains calm, following commands post right-sided thoracentesis with 350 mL removed after weaning down Precedex per Dr Hernández's directive.
[2018-11-23 14:00] LABS: BODY FLUID COLOR YELLOW; BODY FLUID TYPE PLEURAL
[2018-11-23 14:01] LABS: BODY FLUID APPEARANCE SL.CLOUDY
[2018-11-23 14:02] LABS: RBC,BODY FLUID 1858 cells/uL; WBC,BODY FLUID 48 cells/uL
--- NOTE | 2018-11-23 14:17 | NUR ---
Nutrition Screen Note RD Recommendation for Physician: -Continue current diet as ordered Plan of Care: RD following, monitoring for tolerance and adequacy Nutrition reason for involvement: Nutrition Risk Trigger MST Primary Diagnose(s): 1. Hypercapnic respiratory failure. 2. Chronic obstructive pulmonary disease exacerbation. 3. Atrial fibrillation. PMH: Severe advanced lung disease, COPD, ex-heavy smoker, hypertension, obesity, diabetes, anemia, recent GI bleed in October 2018 with a hemoglobin of 8, received multiple blood transfusions, status post EGD showing gastritis. Ht: 61in Wt: 201.19lb 11/23; 193lb 10/22 BMI: 38.0kg/m2 IBW: 105lb =/- 10% RD Assessment: (11/23) Chart reviewed. Labs and meds reviewed. 72yo F, who was transferred from [facility] due to worsening SOB. Pt was discussed during AM rounds. Pt had right-sided thoracentesis with 350 mL removed today. Per JEREMIAH Nguyen, pt continued to be agitated. RN assisted with feeding. Visited pt in the room. Pt was sleeping with BiPAP on. No family on bedside. Reviewed her previous admission to [facility] last month, pt weighted about the same. RN recorded 50-100% meal intake since admission. Will continue to monitor and follow. Current Diet: ADA diet Malnutrition Evaluation (11/23/2018) Unable to evaluate Diet Education Needs Assessment: Diet education indicated, pt is not appropriate. Nutrition Care Level: low Signed: Flor Barnett, MS, RD, LD
[2018-11-23 14:58] LABS: LYMPHOCYTES,BODY FLUID 72 %; MONO/MACROPHG,BODY FLUID 7 %; NEUTROPHILS,BODY FLUID 2 %; OTHER CELLS,BODY FLUID 19 %
--- NOTE | 2018-11-23 16:10 | NUR ---
IM- progress note O/N no events ROS: unobtainable v/s; revd PE: tired appearing anicteric ns1s2 reduced BS; reduced at bases soft nt nd no e/t awake; srinivasan skin dry flat affect labs/meds;revd A/P Acute resp failure Acute exa Diastolic CHF B/L pleural effusion COPD DM2 Anxiety d/o PLAN BIPAP; may need bipap start lasix nebs/steroids/abx scd cct>35mins cont care. BIPAP; sedated; cct>35mins. f/u labs and thoracentesis Deon Yanez MD, PhD.
--- NOTE | 2018-11-23 16:49 | Diagnostic Imaging Report ---
EXAMINATION: CHEST XRAY POST PROCEDURE INDICATION: Status post thoracentesis, evaluate for pneumothorax COMPARISON: None FINDINGS: TUBES and LINES: EKG leads overlie the chest. LUNGS: The lungs are moderately inflated. There is perihilar fullness and indistinctness of the pulmonary vasculature. PLEURA: Likely small left pleural effusion. No significant right pleural effusion. No pneumothorax. HEART AND MEDIASTINUM: Mild cardiomegaly. BONES AND SOFT TISSUES: No acute fracture or dislocation. UPPER ABDOMEN: No free air under the diaphragm. IMPRESSION: Status post right thoracentesis. No significant residual pleural effusion. No pneumothorax. Mild cardiomegaly and pulmonary interstitial edema. Signed by: Katty Olivares MD on 11/23/2018 4:46 PM
[2018-11-23 18:49] LABS: EOSINOPHILS # (AUTO) 0.2 (0.0-0.4); EOSINOPHILS % 1.9 % (0.0-6.0); HEMATOCRIT 38.2 % (34.2-44.1); HEMOGLOBIN 11.5 g/dL (12.0-16.0); LYMPHOCYTES # (AUTO) 0.7 (1.0-3.2); LYMPHOCYTES % 6.8 % (18.0-39.1); MEAN CORPUSCULAR HEMOGLOBIN 28.8 pg (28-32); MEAN CORPUSCULAR HGB CONC 30.1 g/dL (31-35); MEAN CORPUSCULAR VOLUME 95.7 fL (81-99); MONOCYTES # (AUTO) 0.2 (0.2-0.8); MONOCYTES % 2.3 % (4.4-11.3); NEUTROPHILS % 88.7 % (38.7-80.0); PLATELET COUNT 157 x10e3/uL (140-360); RED BLOOD COUNT 3.99 x10e6/uL (3.6-5.1); RED CELL DISTRIBUTION WIDTH 15.3 % (11.7-14.4)
--- NOTE | 2018-11-23 18:52 | NUR ---
Patient with large BM. Patient combative and swinging arm at RN while being cleansed. Bed, gown, and under pads changed. Report given to JEREMIAH Funk. Bed alarm to mid-level for safety.
--- NOTE | 2018-11-23 19:00 | NUR ---
Report received. Assumed care. Assessment done. See interventions. Cleaned for large loose stool.
[2018-11-23 19:10] LABS: ANION GAP 11.3 mmol/L (8-16); BLOOD UREA NITROGEN 29 mg/dL (7-26); BUN/CREATININE RATIO 28 (6-25); CALCIUM 9.5 mg/dL (8.4-10.2); CHLORIDE 89 mmol/L (98-107); CREATININE, SERUM 1.03 mg/dL (0.57-1.11); EST GLOMERULAR FILTRATION RATE > 60 ML/MIN (60-); GLUCOSE 190 mg/dL (74-118); POTASSIUM 4.3 mmol/L (3.5-5.1); SODIUM 141 mmol/L (136-145)
[2018-11-23 19:14] LABS: CARBON DIOXIDE 45 mmol/L (22-29)
[2018-11-24] VITALS (23 sets, daily range): BP systolic 93–173; BP diastolic 51–102
[2018-11-24] MEDS: IPRATROPIUM BROMIDE 0.02% 2.5 ML NEB NEB SCH ×4 (00:15→19:30)
--- NOTE | 2018-11-24 00:30 | NUR ---
Combative. Swinging at nurse and grabbing by the arm. Required two nurses to loosen senior producer on nurse. States "You're hitting me". Told her that she's the one hitting.
--- NOTE | 2018-11-24 00:39 | NUR ---
Placed on bipap for the night. Cont to be agitated and trying to take mask off. Precedex resumed.
[2018-11-24] MEDS: DEXMEDETOMIDINE 200MCG/NS 50ML 50 ML IV PRN ×2 (01:24→04:34)
[2018-11-24 05:08] LABS: BASOPHILS % 0.1 % (0.0-1.0); EOSINOPHILS # (AUTO) 0.2 (0.0-0.4); EOSINOPHILS % 1.9 % (0.0-6.0); HEMATOCRIT 34.3 % (34.2-44.1); HEMOGLOBIN 10.4 g/dL (12.0-16.0); LYMPHOCYTES # (AUTO) 0.7 (1.0-3.2); LYMPHOCYTES % 7.4 % (18.0-39.1); MEAN CORPUSCULAR HEMOGLOBIN 28.7 pg (28-32); MEAN CORPUSCULAR HGB CONC 30.3 g/dL (31-35); MEAN CORPUSCULAR VOLUME 94.8 fL (81-99); MONOCYTES # (AUTO) 0.2 (0.2-0.8); MONOCYTES % 1.8 % (4.4-11.3); NEUTROPHILS # (AUTO) 8.5 (2.1-6.9); NEUTROPHILS % 88.6 % (38.7-80.0); PLATELET COUNT 139 x10e3/uL (140-360); RED BLOOD COUNT 3.62 x10e6/uL (3.6-5.1); RED CELL DISTRIBUTION WIDTH 15.4 % (11.7-14.4)
[2018-11-24 05:28] LABS: ANION GAP 11.1 mmol/L (8-16); BLOOD UREA NITROGEN 32 mg/dL (7-26); BUN/CREATININE RATIO 37 (6-25); CALCIUM 9.2 mg/dL (8.4-10.2); CHLORIDE 91 mmol/L (98-107); CREATININE, SERUM 0.87 mg/dL (0.57-1.11); EST GLOMERULAR FILTRATION RATE > 60 ML/MIN (60-); GLUCOSE 209 mg/dL (74-118); POTASSIUM 4.1 mmol/L (3.5-5.1); SODIUM 143 mmol/L (136-145)
[2018-11-24 05:33] LABS: CARBON DIOXIDE 45 mmol/L (22-29)
[2018-11-24] MEDS: METHYLPREDNISOLONE SOD SUCC 40 MG/ML VIAL 1ML IV SCH ×3 (05:37→17:00)
[2018-11-24] MEDS: INSULIN LISPRO 100 UNIT/1 ML 3ML VIAL SQ SCH ×4 (05:38→20:26)
[2018-11-24 06:36] LABS: BAND NEUTROPHILS % (MANUAL) 3 %; LYMPHOCYTES % (MANUAL) 4 % (19-48); MONOCYTES % (MANUAL) 3 % (3.4-9.0); NEUTROPHILS % (MANUAL) 90 % (40-74)
[2018-11-24 06:37] LABS: PLATELET ESTIMATE SLIGHTLY DECREASED; PLATELET MORPHOLOGY COMMENT NORMAL; RBC MORPHOLOGY COMMENT NORMAL
[2018-11-24] MEDS: LOSARTAN POTASSIUM 25 MG TAB PO SCH (09:59)
[2018-11-24] MEDS: PANTOPRAZOLE 40 MG 10ML VIAL IV SCH (09:59)
[2018-11-24] MEDS: DILTIAZEM HCL ER 120 MG CAP PO SCH ×2 (09:59→16:42)
[2018-11-24] MEDS: FUROSEMIDE INJ 10 MG/ML 4 ML VIAL IV SCH (09:59)
[2018-11-24] MEDS: DIVALPROEX SODIUM 250 MG TAB...DR PO SCH ×2 (09:59→20:25)
[2018-11-24] MEDS: ACETAZOLAMIDE 250 MG TAB PO SCH (11:33)
[2018-11-24] MEDS: METOPROLOL TARTRATE 25 MG TAB PO PRN ×2 (13:09→20:30)
--- NOTE | 2018-11-24 13:50 | NUR ---
notified dr buckner about patient pulling out iv, yelling out, patient somewhat agitated, but knows the year, where she is at. patient tolerating po. dr buckner orders scheduled low dose xanax.
[2018-11-24] MEDS: ALPRAZOLAM 0.25 MG TAB PO SCH ×2 (14:00→21:29)
--- NOTE | 2018-11-24 15:54 | NUR ---
IM- progress note O/N no events ROS: unobtainable v/s; revd PE: tired appearing anicteric ns1s2 reduced BS; reduced at bases soft nt nd no e/t awake; srinivasan skin dry flat affect labs/meds;revd A/P Acute resp failure Acute exa Diastolic CHF B/L pleural effusion COPD DM2 Anxiety d/o PLAN BIPAP; may need bipap start lasix nebs/steroids/abx scd cct>35mins cont care. BIPAP; sedated; cct>35mins. f/u labs and thoracentesis s/p thoracentesis; no PTX: adjust meds for mood. Deon Yanez MD, PhD.
--- NOTE | 2018-11-24 18:45 | NUR ---
Bedside report received from Mariana Underwood RN. Pt received sitting up in bed AAOx2. Pt reports no pain or discomfort at this time.
--- NOTE | 2018-11-24 18:52 | NUR ---
notified dr buckner about lack of iv access, iv meds switched to po and snf eval entered.
--- NOTE | 2018-11-24 19:00 | NUR ---
Pt had BM and was given bed bath at this time. All linens and gown changed as well. Pts dtr assisted and also placed family provided Desitin cream to groin and perineal area per pt request.
--- NOTE | 2018-11-24 20:00 | NUR ---
Pt reported that she feels like she is going to have another BM and was placed on a bedpan by myself and her dtr.
[2018-11-24] MEDS: INSULIN GLARGINE 100 UNITS/ML VIAL SQ SCH (20:25)
--- NOTE | 2018-11-24 20:35 | NUR ---
Pt has BM on bedpan and was cleaned with bath wipes at this time. Assisted by Rosanna Lawler RN.
[2018-11-24] MEDS: FUROSEMIDE 40 MG TAB PO SCH (21:29)
[2018-11-25] VITALS (16 sets, daily range): BP systolic 96–169; BP diastolic 42–96
[2018-11-25] MEDS: FUROSEMIDE 40 MG TAB PO SCH ×3 (06:38→21:20)
[2018-11-25] MEDS: ALPRAZOLAM 0.25 MG TAB PO SCH ×3 (06:38→21:27)
[2018-11-25] MEDS: IPRATROPIUM BROMIDE 0.02% 2.5 ML NEB NEB SCH ×4 (07:20→18:55)
[2018-11-25] MEDS: INSULIN LISPRO 100 UNIT/1 ML 3ML VIAL SQ SCH ×4 (08:15→21:24)
[2018-11-25] MEDS: DIVALPROEX SODIUM 250 MG TAB...DR PO SCH ×2 (08:23→21:20)
[2018-11-25] MEDS: LOSARTAN POTASSIUM 25 MG TAB PO SCH (08:23)
[2018-11-25] MEDS: PANTOPRAZOLE SOD 40 MG TABEC PO SCH (08:23)
[2018-11-25] MEDS: DILTIAZEM HCL ER 120 MG CAP PO SCH ×2 (08:23→16:20)
[2018-11-25] MEDS ORDERED: PREDNISONE 20 MG TAB PO SCH (09:00)
[2018-11-25] MEDS ORDERED: CHOLESTYRAMINE 4 GM PACKET PO PRN (09:15)
--- NOTE | 2018-11-25 09:50 | NUR ---
unable to do bedside PFT. pt is confused and unable to follow directions to perform tests. will attempt again when pt is able to do tests
--- NOTE | 2018-11-25 11:28 | NUR ---
IM- progress note O/N no events ROS: unobtainable v/s; revd PE: tired appearing anicteric ns1s2 reduced BS; reduced at bases soft nt nd no e/t awake; srinivasan skin dry flat affect labs/meds;revd A/P Acute resp failure Acute exa Diastolic CHF B/L pleural effusion COPD DM2 Anxiety d/o PLAN BIPAP; may need bipap start lasix nebs/steroids/abx scd cct>35mins cont care. BIPAP; sedated; cct>35mins. f/u labs and thoracentesis s/p thoracentesis; no PTX: adjust meds for mood. d/c planning; continued tx of anxiety Deon Yanez MD, PhD.
[2018-11-25] MEDS ORDERED: QUETIAPINE FUMARATE 25 MG TAB PO SCH ×2 (11:30→21:00)
--- NOTE | 2018-11-25 12:13 | NUR ---
SPOKE WITH PATIENT ABOUT RETURNING TO [facility], SHE EMPHATICALLY STATES SHE IS GOING HOME. CALLED DAUGHTER VIMAL JOINER [phone] PER PT REQUEST, NO ANSWER LEFT MESSAGE TO RETURN CALL.
--- NOTE | 2018-11-25 12:35 | NUR ---
PT CONFUSED TODAY RIPPING IV'S OUT ACCORDING TO NURSES ORIENTED X 1 TO PERSON ONLY NURSE TO CALL CM/[facility] CONVERTER BLOWER WHEN DAUGHTER ARRIVES TO DISCUSS SNF
--- NOTE | 2018-11-25 16:26 | NUR ---
Pt agitated pulling off O2 saturation probe and oxygen nasal canula. Dr. Yanez informed of lack of IV access due to removal by patient. Pt also refusing bipap. Dr. Parisi aware of HR and increased PO Cardizem dose.
[2018-11-25] MEDS: INSULIN GLARGINE 100 UNITS/ML VIAL SQ SCH (21:25)
[2018-11-26] VITALS (16 sets, daily range): BP systolic 82–169; BP diastolic 43–105
[2018-11-26] MEDS: LEVALBUTEROL HCL SOLN NEBU 0.63 MG/3 ML NEB INH PRN ×3 (00:35→14:45)
[2018-11-26] MEDS: IPRATROPIUM BROMIDE 0.02% 2.5 ML NEB NEB SCH ×3 (00:35→14:45)
[2018-11-26 05:20] LABS: BASOPHILS % 0.1 % (0.0-1.0); EOSINOPHILS # (AUTO) 0.1 (0.0-0.4); EOSINOPHILS % 1.2 % (0.0-6.0); HEMATOCRIT 32.5 % (34.2-44.1); HEMOGLOBIN 9.5 g/dL (12.0-16.0); LYMPHOCYTES # (AUTO) 1.7 (1.0-3.2); LYMPHOCYTES % 17.3 % (18.0-39.1); MEAN CORPUSCULAR HEMOGLOBIN 28.5 pg (28-32); MEAN CORPUSCULAR HGB CONC 29.2 g/dL (31-35); MEAN CORPUSCULAR VOLUME 97.6 fL (81-99); MONOCYTES # (AUTO) 0.8 (0.2-0.8); MONOCYTES % 7.7 % (4.4-11.3); NEUTROPHILS # (AUTO) 7.2 (2.1-6.9); NEUTROPHILS % 73.3 % (38.7-80.0); PLATELET COUNT 119 x10e3/uL (140-360); RED BLOOD COUNT 3.33 x10e6/uL (3.6-5.1); RED CELL DISTRIBUTION WIDTH 15.9 % (11.7-14.4)
[2018-11-26 05:32] LABS: ANION GAP 9.7 mmol/L (8-16); BLOOD UREA NITROGEN 24 mg/dL (7-26); BUN/CREATININE RATIO 30 (6-25); CALCIUM 8.7 mg/dL (8.4-10.2); CHLORIDE 94 mmol/L (98-107); EST GLOMERULAR FILTRATION RATE > 60 ML/MIN (60-); GLUCOSE 104 mg/dL (74-118); POTASSIUM 3.7 mmol/L (3.5-5.1); SODIUM 144 mmol/L (136-145)
[2018-11-26] MEDS: FUROSEMIDE 40 MG TAB PO SCH ×3 (05:35→21:52)
[2018-11-26] MEDS: ALPRAZOLAM 0.25 MG TAB PO SCH (05:35)
[2018-11-26 05:48] LABS: CARBON DIOXIDE 44 mmol/L (22-29)
[2018-11-26] MEDS: PANTOPRAZOLE SOD 40 MG TABEC PO SCH (07:30)
[2018-11-26] MEDS: INSULIN LISPRO 100 UNIT/1 ML 3ML VIAL SQ SCH ×4 (07:30→22:00)
--- NOTE | 2018-11-26 08:23 | NUR ---
SPOKE WITH DAUGHTER VIMAL SHE IS GOING TO [facility] TO LOOK AT BUILDING BETWEEN 10 AND 11 AND WILL GIVE CHOICE AFTER THAT, CALLED AND LET FACILITY KNOW SHE WILL COME FOR A TOUR. WILL GET PACKET TOGETHER TO READY TO FAX WHEN GET APPROVAL.
--- NOTE | 2018-11-26 08:27 | Diagnostic Imaging Report ---
EXAMINATION: CHEST SINGLE (PORTABLE) INDICATION: Shortness of breath COMPARISON: Multiple prior chest radiographs, most recently of 11/22/2018 FINDINGS: TUBES and LINES: EKG leads overlie the chest LUNGS: The lungs are moderately inflated. There is perihilar fullness and indistinctness of the pulmonary vasculature. Bibasilar opacities silhouetting both hemidiaphragms. Patchy airspace opacity at the right upper lobe. PLEURA: Bilateral layering pleural effusions. No pneumothorax. HEART AND MEDIASTINUM: Mild cardiomegaly. BONES AND SOFT TISSUES: No acute fracture or dislocation. UPPER ABDOMEN: No free air under the diaphragm. IMPRESSION: Mild cardiomegaly, pulmonary interstitial edema, and bilateral layering pleural effusions. Patchy opacities at both lung bases and more focal new opacity at the right upper lobe. Findings may represent pneumonia in the proper clinical setting. AUGMENTATIONS: Follow-up chest radiograph in 6-8 weeks to assess for resolution. Signed by: Katty Olivares MD on 11/26/2018 8:24 AM
[2018-11-26] MEDS: PREDNISONE 10 MG TAB PO SCH ×2 (09:00→17:00)
[2018-11-26] MEDS: DIVALPROEX SODIUM 250 MG TAB...DR PO SCH ×2 (09:00→21:51)
[2018-11-26] MEDS: DILTIAZEM HCL ER 120 MG CAP PO SCH ×2 (09:00→17:00)
[2018-11-26] MEDS: LOSARTAN POTASSIUM 25 MG TAB PO SCH (09:00)
--- NOTE | 2018-11-26 13:54 | NUR ---
DAUGHTER CALLED AND GAVE VERBAL FOR [facility], COMPLETED RTF, PASRR AND FAXED CLINICALS, FILED PASRR IN CHART AND COMPLETED RTF FOR COMPLETION OF TRANSFER WHEN ACCEPTED.
[2018-11-26 14:00] LABS: ABG HCO3 47 mmol/L (23-28); ABG PCO2 88 mmHg (41-51); ABG PH 7.33 (7.31-7.41); ABG PO2 94 mmHg (80-105)
--- NOTE | 2018-11-26 16:36 | NUR ---
IM- progress note O/N no events ROS: unobtainable v/s; revd PE: tired appearing anicteric ns1s2 reduced BS; reduced at bases soft nt nd no e/t awake; srinivasan skin dry flat affect labs/meds;revd A/P Acute resp failure Acute exa Diastolic CHF B/L pleural effusion COPD DM2 Anxiety d/o PLAN BIPAP; may need bipap start lasix nebs/steroids/abx scd cct>35mins cont care. BIPAP; sedated; cct>35mins. f/u labs and thoracentesis s/p thoracentesis; no PTX: adjust meds for mood. d/c planning; continued tx of anxiety CXR revd; cont supportive care; adjust seroquel up at night. Needs BIPAP at night. Deon Yanez MD, PhD.
[2018-11-26] MEDS: METOPROLOL TARTRATE 25 MG TAB PO PRN (19:00)
[2018-11-26] MEDS ORDERED: QUETIAPINE FUMARATE 25 MG TAB PO SCH ×2 (21:00)
[2018-11-26] MEDS: INSULIN GLARGINE 100 UNITS/ML VIAL SQ SCH (22:00)
[2018-11-27] MEDS: LEVALBUTEROL HCL SOLN NEBU 0.63 MG/3 ML NEB INH PRN (01:15)
[2018-11-27] MEDS: IPRATROPIUM BROMIDE 0.02% 2.5 ML NEB NEB SCH ×2 (01:15→07:20)
[2018-11-27 03:00] VITALS: BP 110/47
--- NOTE | 2018-11-27 04:30 | NUR ---
pt refused morning lab draws.
[2018-11-27] MEDS: FUROSEMIDE 40 MG TAB PO SCH (05:14)
--- NOTE | 2018-11-27 06:37 | Diagnostic Imaging Report ---
A single frontal view of the chest. HISTORY: Shortness of breath, acute respiratory, altered mental status COMPARISON: Chest radiograph November 26, 2018 DISCUSSION: Portable technique, limits sensitivity of the exam. Soft tissue attenuation partially limits sensitivity of the exam. Overlying monitoring leads. Tubes/Lines: None Lungs and pleura: Markedly improved aeration of the right lung base. Slightly improved aeration of the left lung base. A small left pleural effusion remains possible. Heart and mediastinum: The cardiac silhouette and central pulmonary vasculature appear mildly prominent. Bones and soft tissues: No significant interval change. IMPRESSION: 1. Markedly improved aeration in the right lung base. 2. Mildly improved in the left lung base with residual atelectasis versus pneumonia or aspiration in the appropriate settings. Signed by: Dr. Tyler Pastrana D.O., M.M.M. on 11/27/2018 6:34 AM
--- NOTE | 2018-11-27 06:49 | NUR ---
IM- progress note O/N no events ROS: unobtainable v/s; revd PE: tired appearing anicteric ns1s2 reduced BS; reduced at bases soft nt nd no e/t awake; srinivasan skin dry flat affect labs/meds;revd A/P Acute resp failure Acute exa Diastolic CHF B/L pleural effusion COPD DM2 Anxiety d/o PLAN BIPAP; may need bipap start lasix nebs/steroids/abx scd cct>35mins cont care. BIPAP; sedated; cct>35mins. f/u labs and thoracentesis s/p thoracentesis; no PTX: adjust meds for mood. d/c planning; continued tx of anxiety CXR revd; cont supportive care; adjust seroquel up at night. Needs BIPAP at night. Continue care; d/c to snf when approved; d/c hydralazine; schedule metoprolol for tachycardia; cont lasix; seroquel seems to be working; Deon Yanez MD, PhD.
[2018-11-27] MEDS ORDERED: METOPROLOL TARTRATE 25 MG TAB PO PRN (07:00)
--- NOTE | 2018-11-27 07:49 | NUR ---
PT ACCEPTED TO ROOM [address] DEAN ENRIQUEZ AT [facility], COMPLETED RTF AND PASRR PUT WITH CHART AND COMPLETED CASE MANAGEMENT PORTION OF TRANSFER
--- NOTE | 2018-11-27 08:32 | NUR ---
Tried to contact daughter Carmen for ambulance choice. No answer received.
--- NOTE | 2018-11-27 08:33 | NUR ---
Report given to RUDY Lyles at [facility] for room 122
[2018-11-27] MEDS: LOSARTAN POTASSIUM 25 MG TAB PO SCH (08:34)
[2018-11-27] MEDS: DILTIAZEM HCL ER 120 MG CAP PO SCH (08:34)
[2018-11-27] MEDS: DIVALPROEX SODIUM 250 MG TAB...DR PO SCH (08:34)
[2018-11-27] MEDS: PREDNISONE 10 MG TAB PO SCH (08:34)
[2018-11-27] MEDS: PANTOPRAZOLE SOD 40 MG TABEC PO SCH (08:34)
[2018-11-27] MEDS: INSULIN LISPRO 100 UNIT/1 ML 3ML VIAL SQ SCH (08:35)
--- NOTE | 2018-11-27 08:48 | NUR ---
[facility] called for transport
[2018-11-27] MEDS ORDERED: QUETIAPINE FUMARATE 25 MG TAB PO SCH (09:00)
--- NOTE | 2018-11-28 07:27 | NUR ---
D/C summary Principal dx: Acute resp failure Acute exa Diastolic CHF B/L pleural effusion s/p thoracentesis COPD Secondary Dx: DM2 Anxiety d/o PLAN BIPAP; may need bipap start lasix nebs/steroids/abx scd cct>35mins cont care. BIPAP; sedated; cct>35mins. f/u labs and thoracentesis s/p thoracentesis; no PTX: adjust meds for mood. d/c planning; continued tx of anxiety CXR revd; cont supportive care; adjust seroquel up at night. Needs BIPAP at night. Continue care; d/c to snf when approved; d/c hydralazine; schedule metoprolol for tachycardia; cont lasix; seroquel seems to be working; d.c to SNF stable f/u pcp 1 week d/c>35mins Deon Yanez MD, PhD.
[2018-11-28] MEDS ORDERED: THEOPHYLLINE 200 MG TABCR PO SCH (09:00)
== END 2018-11-27 09:41 | DRG 291 ==
LOC: ER 15:16 → ERHOLD 17:17 → ICU 18:04
PROVIDERS: ADMIT Internal Medicine; ATTEND Internal Medicine
PROC: 0W993ZZ Drainage of Right Pleural Cavity, Percutaneous Approach (ICD-10-PCS; principal; 2018-11-23)
DX: I11.0 Hypertensive heart disease with heart failure (principal); J96.22 Acute and chronic respiratory failure with hypercapnia; J44.1 Chronic obstructive pulmonary disease with (acute) exacerbation; J90 Pleural effusion, not elsewhere classified; I50.33 Acute on chronic diastolic (congestive) heart failure; E11.9 Type 2 diabetes mellitus without complications; K29.70 Gastritis, unspecified, without bleeding; Z99.81 Dependence on supplemental oxygen; E66.9 Obesity, unspecified; Z68.37 Body mass index [BMI] 37.0-37.9, adult; I48.91 Unspecified atrial fibrillation; Z79.01 Long term (current) use of anticoagulants; F41.9 Anxiety disorder, unspecified
CPT/HCPCS: 32555; 36415; 36600; 51700; 71045; 74470; 76604; 80048; 80053; 81001; 82550; 82553; 82805; 82948; 83615; 83690; 83735; 83880; 84100; 84157; 84443; 84484; 85025; 85610; 85730; 87040; 87070; 87205; 88112; 88305; 89051; 93005; 94640; 94660; 96372; 97139; 99284; J0360; J1160; J1650; J1815; J1940; J2060; J2543; J2920; J2930; J7030; J7512

== ENCOUNTER 2018-11-27 16:08 | Inpatient (IN) | payer MEDICARE ==
[~2018-11-27] VITALS: Ht 154.9 cm; Wt 87.1 kg
[~2018-11-27 16:08] MED LIST changes: +ACETAZOLAMIDE250 MG PO; +AUGMENTIN 875-1 EACH PO; +DEPAKOTE250 MG PO; +DILTIAZEM 24HR120 M1 PO; +LAXATIVE SUPPOS10 MG PR; +LOSARTAN POTASS25 MG PO; +METOPROLOL TART25 MG PO
[2018-11-27] MEDS ORDERED: ALBUTEROL/IPRATROPIUM 3 ML NEB NEB ONE (17:45)
[2018-11-27] MEDS ORDERED: MAGNESIUM SULFATE 2GM/50ML 50 ML IV ONE (17:45)
[2018-11-27] MEDS ORDERED: METHYLPREDNISOLONE SOD SUCC 125 MG/2ML VIAL IV ONE (17:45)
[2018-11-27] MEDS ORDERED: ASPIRIN 81 MG CHEW TAB PO ONE (18:45)
--- NOTE | 2018-11-27 18:47 | Diagnostic Imaging Report ---
Exam: Head CT without contrast History: Trauma, fall Comparison studies: None Technique: Axial images were obtained from the skull base to the vertex. Coronal and sagittal images reconstructed from the axial data. Dose modulation, iterative reconstruction, and/or weight based adjustment of the mA/kV was utilized to reduce the radiation dose to as low as reasonably achievable. Radiation dose: Total DLP: 1957 mGy*cm. Estimated effective dose: DLP x 0.015 Intravenous contrast: None Findings: Evaluation the inferior frontal lobes, temporal lobes and posterior fossa are somewhat limited by artifacts from the adjacent skull base. Scalp: No abnormalities. Bones: No fractures, blastic or lytic lesions. Brain sulci: Appropriate for age. Ventricles: Normal in size and configuration. No hydrocephalus. Extra-axial spaces: No masses, no fluid collection. Parenchyma: Scattered ill-defined and confluent hypodensities in the supratentorial white matter nonspecific but are most compatible with chronic microvascular ischemic changes. Incidental linear calcification along the left cingulate gyrus without surrounding edema or mass effect may reflect dystrophic calcification sequela prior infection/inflammation or be vascular in etiology. No mass, acute hemorrhage or acute cortical insult. Sellar/suprasellar region: No abnormalities. Craniocervical junction: Patent foramen magnum. No Chiari one malformation. Incidental findings: Lens replacements for previous cataract surgery. Calcified atherosclerosis in the carotid siphons and right intradural vertebral artery. IMPRESSION: 1. No acute intracranial abnormalities. 2. Moderate chronic microvascular ischemic changes. Signed by: Dr. Shaquille Alba M.D. on 11/27/2018 6:43 PM
[2018-11-27] MEDS: ALBUTEROL/IPRATROPIUM 3 ML NEB NEB SCH (19:00)
--- OUTSIDE RECORDS SUMMARY | 2018-11-27 19:08 | XMS REPORT | Clinical Summary ---
Author Author [facility] Organization [facility] Address Unknown Phone Unavailable Care Team Providers Care Psychiatric Tech Name Role Phone Asked, No Pcp PCP [...] / Serial / Lot Implanted Type Area [facility] er [id number] / / [id number] Solution Tisseel 4ml Fibrin Selnt Surgical N/A: N/A KAYE Syr Prfild - [id number] Implants; BIOSCIENCE Implanted: Qty: 1 on 02/28/2017 by [employer]; Annabelle Bell, [employer]; Surgical Wires Results Not on fileafter 11/26/2017 Insurance Type Payer Benefit Subscriber ID Effective Phone Address Plan / Dates Group Medicare MEDICARE MEDICARE xxxxxxxxxx 2008-P ALEX, PART A AND chelsey Rios Advance Directives Patient has advance care planning documents, and code status on file. For more i nformation, please contact: Alex Crane [address] [place] [address] Date Inactivated Comments Code Status Date Activated 03/04/2017 1:24 AM Full Code 02/28/2017 1:29 PM Code Status decision reached by: Patient
[2018-11-27 19:28] LABS: BASOPHILS % 0.1 % (0.0-1.0); EOSINOPHILS # (AUTO) 0.1 (0.0-0.4); EOSINOPHILS % 0.6 % (0.0-6.0); HEMATOCRIT 37.1 % (34.2-44.1); HEMOGLOBIN 11.1 g/dL (12.0-16.0); LYMPHOCYTES % 10.7 % (18.0-39.1); MEAN CORPUSCULAR HEMOGLOBIN 29.1 pg (28-32); MEAN CORPUSCULAR HGB CONC 29.9 g/dL (31-35); MEAN CORPUSCULAR VOLUME 97.1 fL (81-99); MONOCYTES # (AUTO) 0.5 (0.2-0.8); MONOCYTES % 5.3 % (4.4-11.3); NEUTROPHILS # (AUTO) 7.8 (2.1-6.9); NEUTROPHILS % 82.7 % (38.7-80.0); PLATELET COUNT 138 x10e3/uL (140-360); RED BLOOD COUNT 3.82 x10e6/uL (3.6-5.1); RED CELL DISTRIBUTION WIDTH 15.9 % (11.7-14.4)
[2018-11-27 19:44] LABS: ALANINE AMINOTRANSFERASE 17 IU/L (0-55); ALBUMIN 3.1 g/dL (3.5-5.0); ALBUMIN/GLOBULIN RATIO 0.9 (0.8-2.0); ALKALINE PHOSPHATASE 57 IU/L (40-150); ANION GAP 12.8 mmol/L (8-16); BLOOD UREA NITROGEN 19 mg/dL (7-26); BUN/CREATININE RATIO 23 (6-25); CALCIUM 9.7 mg/dL (8.4-10.2); CHLORIDE 90 mmol/L (98-107); CREATININE, SERUM 0.82 mg/dL (0.57-1.11); EST GLOMERULAR FILTRATION RATE > 60 ML/MIN (60-); GLUCOSE 242 mg/dL (74-118); POTASSIUM 3.8 mmol/L (3.5-5.1); SODIUM 144 mmol/L (136-145)
[2018-11-27 19:50] LABS: CREATINE KINASE MB 0.8 ng/mL (0-5.0)
[2018-11-27 20:01] LABS: CARBON DIOXIDE 45 mmol/L (22-29)
--- NOTE | 2018-11-27 20:02 | NUR ---
dr. watson notified and aware of critical lab value; CO2 45.
--- NOTE | 2018-11-27 20:12 | NUR ---
CO2 INFORMED DR DOBSON, NO NEW ORDERS, ABG SHOWS COMPENSATION , NO ACUTE RESPIRATORY DISTRESS
[2018-11-27 20:28] LABS: ABG PH 7.34 (7.31-7.41)
[2018-11-27 20:30] LABS: ABG HCO3 49 mmol/L (23-28); ABG PCO2 90 mmHg (41-51); ABG PO2 144 mmHg (80-105)
--- NOTE | 2018-11-27 21:38 | NUR ---
PATIENT REFUSING STRAIGHT CATH, EXPLAINED IN FULL PROCEDURE, PATIENT STILL DENIED
--- NOTE | 2018-11-27 21:40 | NUR ---
PT ARRIVED BY STRETCHER TO ROOM 101. PT IS AAOX2, RR EVEN AND NON-LABORED, O2 BY NC AT 4L. NO S/SX OF DISTRESS NOTED. STRONG URINE SMELL NOTED. DIAPER AND GOWN CHANGED AT THIS TIME. PT ABLE TO FOLLOW SIMPLE COMMANDS. LEFT PT LAYING SEMI FOWLERS IN BED, BED IN LOW LOCKED POSITION, SIDE RAILS UPX2, CALL LIGHT AND PHONE WITHIN REACH.
[2018-11-27 22:00] VITALS: BP 175/77
[2018-11-28] VITALS (15 sets, daily range): BP systolic 111–188; BP diastolic 72–111
[2018-11-28] MEDS: ALBUTEROL/IPRATROPIUM 3 ML NEB NEB SCH ×4 (00:55→19:30)
[2018-11-28 06:13] LABS: BASOPHILS % 0.1 % (0.0-1.0); HEMOGLOBIN 10.4 g/dL (12.0-16.0); LYMPHOCYTES # (AUTO) 0.8 (1.0-3.2); LYMPHOCYTES % 7.5 % (18.0-39.1); MEAN CORPUSCULAR HEMOGLOBIN 28.7 pg (28-32); MEAN CORPUSCULAR HGB CONC 29.7 g/dL (31-35); MEAN CORPUSCULAR VOLUME 96.4 fL (81-99); MONOCYTES # (AUTO) 0.1 (0.2-0.8); MONOCYTES % 1.4 % (4.4-11.3); NEUTROPHILS # (AUTO) 9.3 (2.1-6.9); NEUTROPHILS % 89.6 % (38.7-80.0); PLATELET COUNT 124 x10e3/uL (140-360); RED BLOOD COUNT 3.63 x10e6/uL (3.6-5.1); RED CELL DISTRIBUTION WIDTH 15.9 % (11.7-14.4)
[2018-11-28] MEDS ORDERED: DEXTROSE 50% SYRINGE 50 ML IV PRN (06:15)
[2018-11-28] MEDS ORDERED: METOPROLOL TARTRATE 25 MG TAB PO PRN (06:15)
[2018-11-28] MEDS ORDERED: HYDRALAZINE HCL 20 MG/ML VIAL IV PRN (06:15)
[2018-11-28] MEDS ORDERED: CHOLESTYRAMINE 4 GM PACKET PO PRN (06:15)
[2018-11-28 06:37] LABS: ANION GAP 13.4 mmol/L (8-16); BLOOD UREA NITROGEN 19 mg/dL (7-26); BUN/CREATININE RATIO 20 (6-25); CALCIUM 9.4 mg/dL (8.4-10.2); CHLORIDE 93 mmol/L (98-107); CREATININE, SERUM 0.95 mg/dL (0.57-1.11); EST GLOMERULAR FILTRATION RATE > 60 ML/MIN (60-); POTASSIUM 4.4 mmol/L (3.5-5.1); SODIUM 144 mmol/L (136-145)
[2018-11-28 06:48] LABS: CARBON DIOXIDE 42 mmol/L (22-29); GLUCOSE 407 mg/dL (74-118)
--- NOTE | 2018-11-28 06:56 | NUR ---
Notified Dr. Yanez that patient's blood sugar is 407. Awaiting return call as the sliding scale goes to 349.
[2018-11-28 06:57] LABS: CREATINE KINASE MB 2.9 ng/mL (0-5.0)
[2018-11-28] MEDS ORDERED: DILTIAZEM HCL ER 120 MG CAP PO ONE (07:00)
[2018-11-28] MEDS: PANTOPRAZOLE SOD 40 MG TABEC PO SCH (07:14)
[2018-11-28] MEDS: INSULIN LISPRO 100 UNIT/1 ML 3ML VIAL SQ SCH ×4 (08:07→22:27)
--- NOTE | 2018-11-28 08:50 | Consultation ---
DATE OF CONSULTATION: 11/28/2018 Pulmonary Consultation REASON FOR THE CONSULT: COPD. HISTORY OF PRESENT ILLNESS: Ms. Iverson is a 72-year-old female. She was discharged from the hospital on 11/27 and was readmitted again for shortness of breath and increased somnolent. The patient has COPD, history of heavy smoking. She is currently denying any complaints of chest pain, nausea, or vomiting. She was somnolent last night; however, she refused to use BiPAP. She uses home oxygen. She also reports that she was on Breo at home. She has a diastolic heart failure as well. She remained at [facility] for a couple of weeks during her last admission here. REVIEW OF SYSTEMS: GENERAL: Denies any fever or chills. HEAD: Denies any head trauma. ENT: Denies any earache. CVS: Denies any chest pain. RESPIRATORY: Shortness of breath. The rest of review of systems negative except as in HPI. PAST MEDICAL HISTORY: COPD and hypertension. PAST SURGICAL HISTORY: Colonoscopy. FAMILY AND SOCIAL HISTORY: Smoked for 50+ years, does not smoke any more. PHYSICAL EXAMINATION: VITAL SIGNS: Temperature 97.8, pulse of 92, blood pressure 162/72, respiratory rate 18, O2 saturation 100% on 4 L. HEENT: Head is atraumatic and normocephalic. NECK: Supple. CHEST: Reduced air entry bilaterally. HEART: S1 and S2 audible. ABDOMEN: Soft. EXTREMITIES: No pedal edema. NEUROLOGIC: Awake, alert. LABORATORY DATA: White count of 10,000, hemoglobin 10.4, platelets 124. Chemistry; sodium 144, potassium 4.4, chloride 93, bicarb 42, BUN 19, creatinine 0.95. No chest x-ray was done. Brain CT was done as the patient was somnolent and this is showing no acute intracranial abnormalities. ASSESSMENT AND PLAN: Ms. Iverson is a 72-year-old female with is severe chronic obstructive pulmonary disease and cstzk-wd-dbshftl hypercapnic respiratory failure, came in with altered mental status. She is awake and alert now. Her pCO2 on admission yesterday was 90 with a normal pH. Current problems: 1. Pvqqb-ei-amtahyo hypercapnic respiratory failure. 2. Severe chronic obstructive pulmonary disease. 3. History of smoking. 4. Hypertension. 5. Chronic. PLAN: 1. I will start the patient on IV Solu-Medrol. The patient is wheezing. 2. She will need BiPAP definitely during hours of sleep and now. 3. Nebulizer treatment. 4. We will give one dose of Diamox because of metabolic alkalosis. Oxygen as needed to keep the O2 saturation more than or equal to 92%. Thank you for this consult. MD NICHOLAS Nava/LEATHA /[id number]
[2018-11-28] MEDS ORDERED: ACETAZOLAMIDE SODIUM 500 MG/VIAL IV ONE (09:00)
[2018-11-28] MEDS ORDERED: PREDNISONE 10 MG TAB PO SCH (09:00)
[2018-11-28] MEDS ORDERED: FUROSEMIDE 40 MG TAB PO SCH (09:00)
[2018-11-28] MEDS: FUROSEMIDE 40 MG TAB PO SCH ×2 (09:15→17:02)
[2018-11-28] MEDS: LOSARTAN POTASSIUM 25 MG TAB PO SCH (09:15)
[2018-11-28] MEDS: DIVALPROEX SODIUM 250 MG TAB...DR PO SCH ×2 (09:22→22:16)
--- NOTE | 2018-11-28 11:09 | NUR ---
Patient transferred to [facility]. patient had bath. Patient in no distress. Report given to JEREMIAH Nguyen.
[2018-11-28] MEDS: METHYLPREDNISOLONE SOD SUCC 40 MG/ML VIAL 1ML IV SCH ×2 (14:20→22:17)
--- NOTE | 2018-11-28 14:32 | History and Physical ---
I am covering for Dr. Deon Yanez. CHIEF COMPLAINT: Shortness of breath. HISTORY OF PRESENT ILLNESS: This is a 72-year-old female with known history of end-stage COPD, who has been in and out of the hospital over the last several months, recently was just discharged yesterday to senior care facility, was brought back from the senior care facility due to underlying encephalopathy. The patient has known COPD and was on treatment while she was there. The patient was readmitted due to shortness of breath. She is a heavy smoker, she refuses to quit smoking. She also refuses to wear the BiPAP, refuses to wear the oxygen. She was just recently at [facility] for several weeks and was treated accordingly. The patient was seen and evaluated at bedside on the medical floor. She is currently doing well at baseline and currently in [facility]. Her vital signs were stable when I evaluated her. REVIEW OF SYSTEMS: Pertinent positives: Shortness of breath and encephalopathy. Pertinent negatives: Denies any chest pain, palpitation, nausea, vomiting, diarrhea, dysuria, hematuria, frequency, urgency, lightheadedness, dizziness, abdominal pain, headaches, cough, congestion, fever, or any other complaints. The rest of the 14-point review of systems have been reviewed with the patient and are negative. ALLERGIES: NO KNOWN DRUG ALLERGIES. HOME MEDICATIONS: Diltiazem 120 mg extended release one tab b.i.d., Depakote 250 mg one tab p.o. b.i.d., losartan 25 mg one tab daily, and metoprolol 25 mg q.6 hours p.r.n. for blood pressure. PAST MEDICAL HISTORY: End-stage COPD, history of seizures, hypertension. PAST SURGICAL HISTORY: Reports none. FAMILY HISTORY: Hypertension and diabetes. SOCIAL HISTORY: Lives with family. No drugs. No alcohol. She is a chronic smoker. PHYSICAL EXAMINATION: VITAL SIGNS: Temperature is 97.1, pulse is 126, respiratory rate is 24, blood pressure 135/79, and pulse ox is 100% on 3 L nasal cannula. GENERAL: Alert and oriented x2 at baseline. HEENT: Head is normocephalic and atraumatic. Eyes; pupils are equal, round, and reactive to light bilaterally. Extraocular movements are intact bilaterally. Throat, no evidence of erythema or exudates in the posterior pharynx. Has poor dentition. NECK: Supple. Good range of motion. PULMONARY: She has expiratory wheezing appreciated. Positive fine crackles. No rales, no rhonchi. CARDIOVASCULAR: Positive S1, S2. No murmurs, rubs, or gallops appreciated. ABDOMEN: Soft, nondistended, and nontender to palpation. Bowel sounds present. MUSCULOSKELETAL: Unable to assess for any, confused. NEUROLOGICAL: Unable to assess, confused. SKIN: Intact. Warm to touch. Good cap refill. PSYCHIATRIC: Normal affect and mood. EXTREMITIES: No edema. Good range of motion throughout. LABORATORY DATA: Lab findings show white count 10.3, hemoglobin 10.4, hematocrit 35, platelets of 124. Chemistry; sodium 144, potassium 4.4, chloride 93, bicarb 42, anion gap of 13, BUN is 19, creatinine 0.95, glucose was 407 on the early chemistry and this morning was given insulin, calcium 9.4. Troponins were negative. Albumin 3.1. MICROBIOLOGY: None. IMAGING STUDIES: CT of the brain shows no acute intracranial abnormalities. IMPRESSION: 1. Acute exacerbation of chronic obstructive pulmonary disease with history of end-stage chronic obstructive pulmonary disease. 2. Acute on chronic hypercapnic respiratory failure. 3. History of smoking. 4. Hypertension. 5. Alzheimer's dementia with behavioral disturbances. PLAN: At this time, Pulmonary has been consulted and already evaluated the patient. The patient's pCO2 was elevated at 90. She is currently resting comfortably in IMCU on nasal cannula. We will continue with neb treatments, steroids, and follow with Pulmonary recommendations. In relation to her high blood pressure, we will continue with oral antihypertensive medication that she takes at the assisted. Continue with neb treatments. Resume same home medications. Get a.m. labs. Follow with Pulmonary recommendations. Continue with long-acting Lantus and insulin sliding scale. The patient is currently full code as this is what the family wants as per wishes. MD MASSIEL Pandey/MODL /[id number]
[2018-11-28 14:43] LABS: CREATINE KINASE MB 3.6 ng/mL (0-5.0)
[2018-11-28] MEDS: DILTIAZEM HCL ER 120 MG CAP PO SCH (17:00)
--- NOTE | 2018-11-28 20:02 | NUR ---
patient is on bed, awake and answer questions incoherently. no distress noted, vitals checked. bed alarm is on. will continue to monitor.
[2018-11-28] MEDS ORDERED: INSULIN GLARGINE 100 UNITS/ML VIAL SQ SCH (21:00)
[2018-11-28] MEDS: INSULIN GLARGINE 100 UNITS/ML VIAL SQ SCH (22:27)
--- NOTE | 2018-11-28 23:34 | NUR ---
patient is restless and keeps taking off the telemetry cords and O2 nasal canula.
[2018-11-29] VITALS (16 sets, daily range): BP systolic 84–160; BP diastolic 50–109
[2018-11-29] MEDS: ALBUTEROL/IPRATROPIUM 3 ML NEB NEB SCH ×4 (01:05→18:30)
[2018-11-29] MEDS: METHYLPREDNISOLONE SOD SUCC 40 MG/ML VIAL 1ML IV SCH ×3 (05:21→22:58)
[2018-11-29] MEDS: INSULIN LISPRO 100 UNIT/1 ML 3ML VIAL SQ SCH ×5 (08:10→21:13)
[2018-11-29] MEDS: PANTOPRAZOLE SOD 40 MG TABEC PO SCH (08:16)
[2018-11-29] MEDS: DILTIAZEM HCL ER 120 MG CAP PO SCH ×2 (08:54→17:00)
[2018-11-29] MEDS: LOSARTAN POTASSIUM 25 MG TAB PO SCH (08:55)
[2018-11-29] MEDS: FUROSEMIDE 40 MG TAB PO SCH ×2 (08:55→17:00)
[2018-11-29] MEDS: DIVALPROEX SODIUM 250 MG TAB...DR PO SCH ×2 (08:55→20:21)
[2018-11-29] MEDS ORDERED: HALOPERIDOL LACTATE 5 MG/ML VIAL IM PRN (12:15)
[2018-11-29] MEDS ORDERED: QUETIAPINE FUMARATE 25 MG TAB PO PRN (12:30)
--- NOTE | 2018-11-29 12:30 | NUR ---
Daughter in to visit patient, talking to her mother saying " you got to wear the bi-pap and cooperate with the treatment, do not take your oxygen, mamma you do not want to be a [place] of the state" patient very in and out of confusion.
--- NOTE | 2018-11-29 13:00 | NUR ---
Notified Dr. Centeon, regarding blood sugar, made him aware patient was given 12 units insulin, received orders to add 7 units of Humalog with meals.
--- NOTE | 2018-11-29 14:57 | Progress Note ---
DATE: 11/29/2018 Medicine Progress Note SUBJECTIVE: The patient is very combative on examination today. She BiPAP. Family is at bedside. . We will give low-dose Haldol to calm the patient . PHYSICAL EXAMINATION: VITAL SIGNS: Temperature is 96.9, pulse is 112, respiratory rate is 18, blood pressure 137/75, pulse ox 96%, was on 2 L nasal cannula . GENERAL: In no acute distress. Confused and combative. HEENT: Head is normocephalic, atraumatic. Eyes, pupils are reactive to light bilaterally. Extraocular movements are intact bilaterally. Throat, no evidence of erythema or exudate in the posterior pharynx. Has poor dentition. NECK: Supple. Good range of motion throughout. PULMONARY: Clear to auscultation bilaterally. No wheezing. No rales. No rhonchi. No crackles appreciated. CARDIOVASCULAR: Positive S1, S2. No murmurs, rubs, or gallops appreciated. ABDOMEN: Soft, nondistended, nontender to palpation. Bowel sounds present. MUSCULOSKELETAL: Strength is 5/5 throughout. No evidence of any muscle deficits on examination. No weakness appreciated. NEUROLOGIC: Cranial nerves II through XII are grossly intact. No evidence of any neurological deficits on exam. SKIN: Intact. Warm to touch. Good cap refill. PSYCHIATRIC: Normal affect and mood. She is confused. EXTREMITIES: No edema. Good range of motion. LABORATORY DATA: White count 10.7, hemoglobin 10.4, hematocrit is 35, platelets of 124. MICROBIOLOGY: None. IMAGING STUDIES: None. IMPRESSION: 1. Acute exacerbation of chronic obstructive pulmonary disease with history of end-stage chronic obstructive pulmonary disease. 2. Vftvh-kc-efjqopu hypercapnic respiratory failure. 3. History of smoking. 4. Hypertension. 5. Alzheimer's dementia with behavioral disturbances. PLAN: At this time, we will continue steroids, neb treatments. I did adjust her antihypertensive medications on yesterday. I will add little bit of Seroquel and probably one dose of Haldol because the patient is very combative the BiPAP on. She is on long-acting insulin. Get a.m. labs. Family was at bedside thoroughly plan of care. They still want to be full code with no changes. MD MASSIEL Pandey/MODL /[id number]
[2018-11-29 17:52] LABS: ABG PH 7.16 (7.31-7.41)
[2018-11-29 17:53] LABS: ABG PCO2 130 mmHg (41-51); ABG PO2 139 mmHg (80-105)
--- NOTE | 2018-11-29 18:00 | NUR ---
patient's O2 sat is low - 70%, flopping around the bed, not answering questions appropriately. patient placed on bipap, O2 improved to 100%. blood gas drawn per md order. CO2 is high, pH is low. Md notified, states to call rapid response and intubate. pt intubated per ER MD.
--- NOTE | 2018-11-29 18:01 | NUR ---
verified code status with daughter. she would like her mother to be a full code.
[2018-11-29 18:18] LABS: ANION GAP 14.6 mmol/L (8-16); CALCIUM 9.7 mg/dL (8.4-10.2); CREATININE, SERUM 1.15 mg/dL (0.57-1.11); POTASSIUM 4.6 mmol/L (3.5-5.1)
--- NOTE | 2018-11-29 18:54 | Diagnostic Imaging Report ---
EXAMINATION: CHEST SINGLE (PORTABLE) INDICATION: ^intubated ^[id number] ^1810 ^Y COMPARISON: Chest radiograph 11/27/2018 FINDINGS: AP view TUBES and LINES: Endotracheal tube with tip 4.4 cm above the brandy. LUNGS: Lungs are well inflated. Large right lower lobe consolidation. PLEURA: No pleural effusion or pneumothorax. HEART AND MEDIASTINUM: Stable enlargement of the cardiac silhouette. BONES AND SOFT TISSUES: No acute osseous lesion. Soft tissues are unremarkable. UPPER ABDOMEN: No free air under the diaphragm. IMPRESSION: Endotracheal tube in adequate position. Right lower lobe consolidation suggestive of aspiration. Signed by: Dr. Samantha Mcclendon M.D. on 11/29/2018 6:50 PM
[2018-11-29 20:21] LABS: ABG PH 7.52 (7.31-7.41)
[2018-11-29 20:22] LABS: ABG HCO3 46 mmol/L (23-28); ABG PCO2 56 mmHg (41-51); ABG PO2 196 mmHg (80-105)
[2018-11-29] MEDS ORDERED: AMIODARONE HCL 150MG 100 ML IV ONE (20:30)
[2018-11-29] MEDS ORDERED: AMIODARONE HCL 100 ML IV ONE (20:31)
[2018-11-29] MEDS: HEPARIN SOD (PORCINE) 5,000 UNIT/ML VIAL SC SCH (21:12)
[2018-11-29] MEDS: INSULIN GLARGINE 100 UNITS/ML VIAL SQ SCH (21:13)
[2018-11-29] MEDS ORDERED: AMIODARONE HCL 900 MG in DEXTROSE 5% 500ML 500 ML IV STA (21:23)
[2018-11-29] MEDS ORDERED: AMIODARONE HCL 360MG 200 ML IV SCH (21:30)
[2018-11-29] MEDS: FENTANYL CITRATE INJ 2,000 MCG in SODIUM CHLORIDE 0.9% 250ML 210 ML IV PRN (21:35)
[2018-11-29] MEDS: PROPOFOL IV EMULSION 10MG/ML 100 ML IV PRN ×2 (21:36→22:06)
[2018-11-29] MEDS ORDERED: AMIODARONE 900MG 500 ML IV SCH (22:00)
[2018-11-30] VITALS (52 sets, daily range): BP systolic 91–176; BP diastolic 51–86
[2018-11-30] MEDS ORDERED: AMIODARONE HCL 360MG 200 ML IV SCH (04:00)
[2018-11-30] MEDS ORDERED: AMIODARONE 900MG 500 ML IV SCH (04:00)
[2018-11-30 05:37] LABS: BASOPHILS % 0.2 % (0.0-1.0); EOSINOPHILS % 0.1 % (0.0-6.0); HEMATOCRIT 34.4 % (34.2-44.1); HEMOGLOBIN 9.7 g/dL (12.0-16.0); LYMPHOCYTES # (AUTO) 1.5 (1.0-3.2); LYMPHOCYTES % 10.9 % (18.0-39.1); MEAN CORPUSCULAR HEMOGLOBIN 28.1 pg (28-32); MEAN CORPUSCULAR HGB CONC 28.2 g/dL (31-35); MEAN CORPUSCULAR VOLUME 99.7 fL (81-99); MONOCYTES # (AUTO) 1.6 (0.2-0.8); MONOCYTES % 11.7 % (4.4-11.3); NEUTROPHILS % 73.2 % (38.7-80.0); PLATELET COUNT 118 x10e3/uL (140-360); RED BLOOD COUNT 3.45 x10e6/uL (3.6-5.1); RED CELL DISTRIBUTION WIDTH 15.6 % (11.7-14.4)
[2018-11-30 05:59] LABS: ANION GAP 17.7 mmol/L (8-16); BLOOD UREA NITROGEN 27 mg/dL (7-26); BUN/CREATININE RATIO 26 (6-25); CALCIUM 10.2 mg/dL (8.4-10.2); CARBON DIOXIDE 39 mmol/L (22-29); CHLORIDE 93 mmol/L (98-107); CREATININE, SERUM 1.02 mg/dL (0.57-1.11); EST GLOMERULAR FILTRATION RATE > 60 ML/MIN (60-); GLUCOSE 189 mg/dL (74-118); POTASSIUM 3.7 mmol/L (3.5-5.1); SODIUM 146 mmol/L (136-145)
[2018-11-30] MEDS: FENTANYL CITRATE INJ 2,000 MCG in SODIUM CHLORIDE 0.9% 250ML 210 ML IV PRN (06:00)
[2018-11-30] MEDS: PROPOFOL IV EMULSION 10MG/ML 100 ML IV PRN ×4 (06:01→20:39)
[2018-11-30] MEDS: METHYLPREDNISOLONE SOD SUCC 40 MG/ML VIAL 1ML IV SCH ×3 (06:07→21:27)
[2018-11-30] MEDS: PANTOPRAZOLE SOD 40 MG TABEC PO SCH (07:30)
[2018-11-30] MEDS: INSULIN LISPRO 100 UNIT/1 ML 3ML VIAL SQ SCH ×7 (07:30→21:20)
[2018-11-30 07:38] LABS: BAND NEUTROPHILS % (MANUAL) 2 %; LYMPHOCYTES % (MANUAL) 8 % (19-48); MONOCYTES % (MANUAL) 13 % (3.4-9.0); NEUTROPHILS % (MANUAL) 77 % (40-74)
[2018-11-30 07:42] LABS: ANISOCYTOSIS SLIG; POIKILOCYTOSIS SLIGHT
[2018-11-30 07:44] LABS: PLATELET MORPHOLOGY COMMENT FEW LARGE
[2018-11-30 07:45] LABS: PLATELET ESTIMATE SLIGHTLY DECREASED; RBC MORPHOLOGY COMMENT ABNORMAL
[2018-11-30] MEDS: ALBUTEROL/IPRATROPIUM 3 ML NEB NEB SCH ×4 (08:10→19:37)
[2018-11-30] MEDS: DIVALPROEX SODIUM 250 MG TAB...DR PO SCH (08:45)
[2018-11-30] MEDS: DILTIAZEM HCL ER 120 MG CAP PO SCH ×2 (08:45→17:58)
[2018-11-30] MEDS: FUROSEMIDE 40 MG TAB PO SCH (08:46)
[2018-11-30] MEDS: LOSARTAN POTASSIUM 25 MG TAB PO SCH (08:46)
[2018-11-30] MEDS: HEPARIN SOD (PORCINE) 5,000 UNIT/ML VIAL SC SCH ×2 (09:51→21:18)
--- NOTE | 2018-11-30 12:35 | Progress Note ---
DATE: 11/30/2018 Medicine Progress Note I am covering for Dr. Deon Yanez. SUBJECTIVE: The patient had a rapid response especially due to elevated pCO2, had to be intubated, started on sedation, transferred to the ICU. The patient is currently on propofol for sedation. She is currently intubated, being managed by Pulmonary Critical Care. No overnight events. The patient is at baseline. No family at bedside. Discussed plan of care with nursing staff. PHYSICAL EXAMINATION: VITAL SIGNS: Temperature is 98.3, pulse 83, respiratory rate is 14, blood pressure 114/61, pulse ox she is 100% on mechanical ventilator. GENERAL: Intubated and sedated. HEENT: Head is normocephalic, atraumatic. Eyes, pupils are equal, round, and reactive to light bilaterally. Extraocular movements are intact bilaterally. Throat, no evidence of erythema or exudate in the posterior pharynx. Has poor dentition. NECK: Supple. Good range of motion. PULMONARY: Clear to auscultation bilaterally. No wheezing. No rales. No rhonchi. No crackles appreciated. CARDIOVASCULAR: Positive S1 and S2. No murmurs, rubs, or gallops appreciated. ABDOMEN: Soft, nondistended, nontender to palpation. Bowel sounds present. MUSCULOSKELETAL: Unable to assess, intubated and sedated. NEUROLOGIC: Unable to assess intubated and sedated. SKIN: Intact. Warm to touch. Good cap refill. PSYCHIATRIC: Intubated and sedated. EXTREMITIES: No edema. Good range of motion throughout. LABORATORY DATA: White count was 13.7, hemoglobin 9.7, hematocrit of 34, platelets of 118. Chemistry; sodium 146, potassium was 3.7, chloride 93, bicarb is 39, anion gap is 17, BUN 27, creatinine is 1, glucose is 189, calcium is 10.2. IMAGING: Chest x-ray yesterday shows ET tube in adequate position. Right lower lobe consolidation concerning for underlying aspiration. IMPRESSION: 1. Acute hypoxic hypercapnic respiratory failure secondary to end-stage chronic obstructive pulmonary disease, now intubated. 2. History of chronic smoking. 3. Concern for aspiration pneumonia. 4. Hypertension. 5. Alzheimer's dementia with behavioral disturbances. PLAN: At this time, the patient was transferred to ICU yesterday after rapid response found to have an elevated pCO2. She is now intubated and sedated on mechanical ventilator with propofol for sedation. She is doing well now. No overnight events. Continue with same plan of care, steroids, neb treatments. Antibiotics were started for concern for underlying aspiration pneumonia is seen on chest x-ray. We are going to get a.m. labs. Put her on Lovenox for DVT prophylaxis. Family needs to make a decision in terms of hospice for this patient. She is extremely ill. She has been in and out of the hospital for significant period of time over the last several months and would truly benefit from hospice services, but I do not think the family is interested with hospice at this time. MD MASSIEL Pandey/LEATHA /[id number]
[2018-11-30] MEDS: PIPER-TAZ 3.375 GM 50 ML IV SCH ×2 (13:15→20:06)
--- NOTE | 2018-11-30 14:06 | Consultation ---
DATE OF CONSULTATION: 11/30/2018 Cardiology Consultation REASON FOR CONSULTATION: Evaluate cardiac status. HISTORY OF PRESENT ILLNESS: Ms. Iverson is a 73-year-old lady with past medical history of advanced lung disease with chronic hypoxic and hypercapnic respiratory failure, history of anemia with major GI bleeding in October 2018, hypertension essential, type 2 diabetes, chronic atrial fibrillation, debility, and chronic diastolic heart failure. The patient was discharged from this institution on November 27, 2018, and shortly afterwards re-presented with somnolence and was found to be in acute on chronic hypercapnic respiratory failure. The patient was intubated shortly after arrival. She popped into atrial fibrillation while she was here and was initiated on amiodarone infusion. She is currently on the vent and unable to corroborate any history from her. PAST MEDICAL HISTORY: 1. Hypertension, essential. 2. Type 2 diabetes. 3. Hypercholesterolemia. 4. Chronic advanced lung disease, COPD, heavy smoker with chronic hypercapnic respiratory failure. 5. History of GI bleeding with hemoglobin drop all the way down to 8 in October 2018. 6. Atrial fibrillation. 7. Diastolic heart failure. 8. History of gastritis. PAST SURGICAL HISTORY: History of cholecystectomy. FAMILY HISTORY: Unable to be obtained secondary to mental condition. SOCIAL HISTORY: Unable to be obtained secondary to medical condition, but we know that she is a chronic heavy ex-smoker. ALLERGIES: NO KNOWN DRUG ALLERGIES. HOME MEDICATIONS: Included acetazolamide 250 mg daily, Augmentin b.i.d., Cardizem 240 mg b.i.d., losartan 25 mg daily, metoprolol tartrate 25 mg q.6 hours p.r.n., bisacodyl suppository p.r.n. REVIEW OF SYSTEMS: Unable to be obtained secondary to mental condition. PHYSICAL EXAMINATION: VITAL SIGNS: Height of 61 inches, weight of 194 pounds, BMI is 36.8. Temperature of 98.8, pulse of 80, respiratory rate of 14, blood pressure is 126/58, and O2 saturation 100% on the vent. GENERAL: This is a lethargic elderly woman, who appears much older than stated age. She is currently intubated, sedated on the vent. HEENT: Normocephalic, atraumatic. Pupils are equal, round, and reactive to light. Extraocular movements are intact. Oropharynx is with ET tube. NECK: No elevation of jugular venous pulsation. No carotid bruits. CARDIOVASCULAR: Irregularly irregular rate and rhythm. Normal S1, S2. Soft 2/6 systolic murmur at the right upper sternal border. LUNGS: Show poor air flow throughout lung seay and advanced COPD type changes. She is on the vent. ABDOMEN: Soft, nontender, obese. Normal bowel sounds. No hepatosplenomegaly. BACK: No costovertebral angle tenderness. EXTREMITIES: Warm with trace edema. Diminished pedal pulses. NEUROLOGIC: She is sedated, on the vent, unable to assess. LABORATORY DATA: White count of 13.7, hemoglobin 9.7, hematocrit 34.4, platelets of 118. Sodium 146, potassium 3.7, chloride 93, bicarb 39, BUN 27, creatinine 1.02, glucose of 189, calcium of 10.2. ABG yesterday shows pH of 7.52, pCO2 of 56, pO2 of 196. Chest x-ray from yesterday shows right lower lobe consolidation suggestive of aspiration. Brain CT on November 27 shows moderate chronic microvascular ischemic changes. EKG reveals atrial fibrillation with rapid ventricular response and nonspecific ST-T wave changes. DIAGNOSES: 1. Acute on chronic hypoxic and hypercapnic respiratory failure. 2. End-stage chronic obstructive pulmonary disease. 3. History of chronic smoking. 4. Aspiration pneumonia. 5. Hypertension, essential. 6. Chronic diastolic heart failure. 7. Alzheimer's dementia. 8. Type 2 diabetes. 9. Hypertension. 10. Hypercholesterolemia. PLAN/RECOMMENDATIONS: 1. For the time being, we will recommend continue rate control therapy in light of her chronic atrial fibrillation. 2. Appreciate primary team's aid and management along with Pulmonary aid and management in this lady. 3. Receiving diuretics to maintain relative euvolemia. 4. On empiric antibiotics for aspiration pneumonia coverage. 5. Overall prognosis appears to be poor and may be appropriate for hospice therapy. 6. We will continue to follow this patient. Thank you for this referral. MD COREY Amado/LEATHA /[id number]
--- NOTE | 2018-11-30 15:19 | NUR ---
Nutrition Intervention Note RD Recommendation(s) for Physician: -With propofol at 31.7mL/hr, rec to initiate continuous TF with Glucerna 1.2 @ 20mL/hr, providing 1413kcal, 29g protein, 386ml water -When propofol is turned down to <10ml/hr, rec to increase Glucerna 1.2 to goal rate of 45mL/hr -Water flushes per MD -Check labs, weight, and gastric tolerance daily Plan of Care: RD following, monitoring for tolerance and adequacy, TF rec Nutrition reason for involvement: New TF RD Assessment 11/30 73yo F, who was recently d/c from [facility] on 11/27/2018. Pt was readmitted for acute on chronic hypercapnic respiratory failure. Currently intubated and ventilated. No family on bedside to provide info. No pressor meds noted. Propofol at 31.7mL/hr and Fentanyl noted. Pending OGT placement. Will continue to monitor and follow. Principal Problems/Diagnoses: 1. Acute on chronic hypoxic and hypercapnic respiratory failure. 2. End-stage chronic obstructive pulmonary disease. 3. History of chronic smoking. 4. Aspiration pneumonia. PMH: 1. Hypertension, essential. 2. Type 2 diabetes. 3. Hypercholesterolemia. 4. Chronic advanced lung disease, COPD, heavy smoker with chronic hypercapnic respiratory failure. 5. History of GI bleeding with hemoglobin drop all the way down to 8 in October 2018. 6. Atrial fibrillation. 7. Diastolic heart failure. 8. History of gastritis. GI: abdomen soft, non-tender, + flatus Skin: no pressure wound noted Labs: (11/30) Na 146 H, BUN 27 H, Glucose 211 H Meds: Solu-medrol, propofol, heparin, fentanyl, amiodarone Ht: 61in Wt: 194lb BMI: 36.8kg/m2 IBW: 105lb +/- 10% Malnutrition Evaluation (11/30/18) The patient does not meet criteria for a specified degree of malnutrition at this time. Will re-evaluate at follow-up as appropriate. Nutrition Prescription (Diet Order): NPO Estimated Nutritional Needs: Calories: 1166 1325kcal (22-25kcal/kg/d) Weight used: IBW Protein: 80 133g(1.5-2g/kg/d) Weight used: IBW Diet Adequacy: Not meeting calorie needs, Not meeting protein needs Diet Education Needs Assessment: Diet education not indicated. Nutrition Care Level: mod Nutrition Diagnosis: Inadequate oral intake related to current medical status as evidenced by pt requiring EN as main source of nutrition. Goal: Patient will meet 75-100% of estimated needs by follow up Progress: - Interventions: Composition, Rate, Route Monitoring/Evaluation: Total energy intake, Total protein intake, Formula/Solution, Weight change Signed: Flor Barnett MS, RD, LD
[2018-11-30] MEDS ORDERED: VANCOMYCIN 1GM/NS 250 ML 250 ML IV ONE (16:45)
[2018-11-30] MEDS ORDERED: FUROSEMIDE INJ 10 MG/ML 4 ML VIAL IV NR (16:45)
[2018-11-30] MEDS ORDERED: SUCCINYLCHOLINE CHLORIDE 20 MG/ML 10ML VIAL ONE (17:31)
[2018-11-30] MEDS ORDERED: ETOMIDATE 40 MG/ 20ML VIAL IV ONE (17:31)
--- NOTE | 2018-11-30 17:48 | Diagnostic Imaging Report ---
EXAMINATION: CHEST SINGLE (PORTABLE) INDICATION: Intubation COMPARISON: Multiple prior chest radiograph, most recently 11/29/2018 FINDINGS: TUBES and LINES: And tracheal tube terminates approximately 3.5 cm above the brandy. Interval placement of NG tube which projects below the diaphragm with tip not seen and side-port in the stomach. EKG leads overlie the chest. LUNGS: The lungs are moderately inflated. There is perihilar fullness and indistinctness of the pulmonary vasculature. Unchanged right lung base patchy airspace opacity. PLEURA: No pleural effusion or pneumothorax. HEART AND MEDIASTINUM: Cardiomediastinal silhouette is stably enlarged. BONES AND SOFT TISSUES: No acute fracture or dislocation. UPPER ABDOMEN: No free air under the diaphragm. IMPRESSION: Likely mild pulmonary interstitial edema. Unchanged airspace opacity at the right lung base may represent airspace edema, aspiration and/or pneumonia. Lines and tubes as above. Signed by: Katty Olivares MD on 11/30/2018 5:44 PM
[2018-11-30] MEDS ORDERED: DEXMEDETOMIDINE HCL 200 MCG in SODIUM CHLORIDE 0.9% 50ML 48 ML IV PRN (19:30)
[2018-11-30] MEDS ORDERED: DEXMEDETOMIDINE 200MCG/NS 50ML 50 ML IV PRN (19:45)
[2018-11-30] MEDS: INSULIN GLARGINE 100 UNITS/ML VIAL SQ SCH (21:18)
[2018-11-30] MEDS: VALPROATE 250MG/5ML ORAL LIQ 5ml GT SCH (21:20)
[2018-12-01] VITALS (25 sets, daily range): BP systolic 107–178; BP diastolic 54–110
[2018-12-01] MEDS: ALBUTEROL/IPRATROPIUM 3 ML NEB NEB SCH ×4 (00:01→18:50)
[2018-12-01] MEDS: PROPOFOL IV EMULSION 10MG/ML 100 ML IV PRN ×2 (00:30→04:49)
[2018-12-01] MEDS: PIPER-TAZ 3.375 GM 50 ML IV SCH ×3 (03:33→20:44)
[2018-12-01 05:11] LABS: BASOPHILS % 0.1 % (0.0-1.0); HEMATOCRIT 30.5 % (34.2-44.1); HEMOGLOBIN 9.4 g/dL (12.0-16.0); LYMPHOCYTES # (AUTO) 1.5 (1.0-3.2); LYMPHOCYTES % 9.7 % (18.0-39.1); MEAN CORPUSCULAR HEMOGLOBIN 28.4 pg (28-32); MEAN CORPUSCULAR HGB CONC 30.8 g/dL (31-35); MEAN CORPUSCULAR VOLUME 92.1 fL (81-99); MONOCYTES # (AUTO) 0.7 (0.2-0.8); MONOCYTES % 4.8 % (4.4-11.3); NEUTROPHILS # (AUTO) 12.6 (2.1-6.9); NEUTROPHILS % 82.3 % (38.7-80.0); PLATELET COUNT 131 x10e3/uL (140-360); RED BLOOD COUNT 3.31 x10e6/uL (3.6-5.1)
[2018-12-01] MEDS: METHYLPREDNISOLONE SOD SUCC 40 MG/ML VIAL 1ML IV SCH ×3 (05:29→22:01)
[2018-12-01 05:30] LABS: ALBUMIN 2.8 g/dL (3.5-5.0); ALBUMIN/GLOBULIN RATIO 1.1 (0.8-2.0); ANION GAP 11.3 mmol/L (8-16); CALCIUM 9.5 mg/dL (8.4-10.2); CREATININE, SERUM 1.11 mg/dL (0.57-1.11); POTASSIUM 3.3 mmol/L (3.5-5.1)
[2018-12-01] MEDS: INSULIN LISPRO 100 UNIT/1 ML 3ML VIAL SQ SCH ×7 (07:30→21:00)
[2018-12-01] MEDS: PANTOPRAZOLE SOD 40 MG TABEC PO SCH (07:30)
--- NOTE | 2018-12-01 07:43 | Diagnostic Imaging Report ---
EXAM: CHEST SINGLE (PORTABLE), AP Portable DATE: 12/01/2018 Time stamp on exam: 6:21 AM INDICATION: Respiratory failure COMPARISON: 11/30/2018 FINDINGS: LINES/TUBES: Endotracheal tube remains above the brandy. There is a nasogastric tube with its tip below the diaphragm. LUNGS: Mild pulmonary edema appears unchanged. Right basilar atelectasis. PLEURA: No effusions or pneumothorax. HEART AND MEDIASTINUM: Normal size and contour. BONES AND SOFT TISSUES: No acute findings. IMPRESSION: 1. Mild pulmonary edema unchanged. 2. Right basilar airspace opacity also unchanged and likely atelectasis. Signed by: Dr. Brent Fernandez DO on 12/01/2018 7:40 AM
--- NOTE | 2018-12-01 07:58 | NUR ---
IM- progress note O/N no events ROS: unobtainable v/s; revd PE: tired appearing anicteric ns1s2 reduced BS; reduced at bases soft nt nd no e/t awake; srinivasan skin dry flat affect labs/meds;revd A/P Acute resp failure Acute exa Diastolic CHF B/L pleural effusion COPD DM2 Anxiety d/o PLAN BIPAP; may need bipap start lasix nebs/steroids/abx scd cct>35mins cont care. BIPAP; sedated; cct>35mins. f/u labs and thoracentesis s/p thoracentesis; no PTX: adjust meds for mood. d/c planning; continued tx of anxiety CXR revd; cont supportive care; adjust seroquel up at night. Needs BIPAP at night. Continue care; d/c to snf when approved; d/c hydralazine; schedule metoprolol for tachycardia; cont lasix; seroquel seems to be working; 12/01 Acute resp failure- Remains intubated; Hospice discussions ongoing; R.lower lobe Aspiration PNA- improving; Extubated later today; on BIPAP and sedated. TONYA/AMS- persist; continue supportive care. Deon Yanez MD, PhD.
[2018-12-01 08:31] LABS: LYMPHOCYTES % (MANUAL) 11 % (19-48); MONOCYTES % (MANUAL) 7 % (3.4-9.0); NEUTROPHILS % (MANUAL) 82 % (40-74)
[2018-12-01 08:35] LABS: ANISOCYTOSIS SLIG; PLATELET MORPHOLOGY COMMENT NORMAL; POIKILOCYTOSIS SLIGHT; RBC MORPHOLOGY COMMENT NORMAL
[2018-12-01 08:36] LABS: PLATELET ESTIMATE SLIGHTLY DECREASED
[2018-12-01] MEDS: DILTIAZEM HCL ER 120 MG CAP PO SCH ×2 (09:00→17:00)
[2018-12-01] MEDS: DEXMEDETOMIDINE 200MCG/NS 50ML 50 ML IV PRN ×5 (09:00→22:02)
[2018-12-01] MEDS: HEPARIN SOD (PORCINE) 5,000 UNIT/ML VIAL SC SCH ×2 (09:00→22:00)
[2018-12-01] MEDS: LOSARTAN POTASSIUM 25 MG TAB PO SCH (09:00)
[2018-12-01] MEDS: VALPROATE 250MG/5ML ORAL LIQ 5ml GT SCH (09:00)
[2018-12-01] MEDS: FUROSEMIDE INJ 10 MG/ML 4 ML VIAL IV SCH (11:00)
--- NOTE | 2018-12-01 11:00 | NUR ---
DR MCWILLIAMS ORDER EXTUBATED PT,PLACE PT ON BIPAP 04/18//40%.
[2018-12-01] MEDS ORDERED: POTASSIUM CHLORIDE 20MEQ/100ML 200 ML IV ONE (11:30)
[2018-12-01 11:32] LABS: ABG HCO3 43 mmol/L (23-28); ABG PCO2 73 mmHg (41-51); ABG PH 7.38 (7.31-7.41); ABG PO2 105 mmHg (80-105)
[2018-12-01] MEDS ORDERED: ACETAZOLAMIDE SODIUM 500 MG/VIAL IV ONE (11:50)
[2018-12-01] MEDS ORDERED: SODIUM CHLORIDE 0.9% 250ML 250 ML ONE (14:35)
--- NOTE | 2018-12-01 14:51 | NUR ---
PT DISCUSSED IN BARRIER ROUNDS; PT EXTUBATED AT 11AM, NO DOCUMENTED PLAN
[2018-12-01] MEDS: INSULIN GLARGINE 100 UNITS/ML VIAL SQ SCH (21:00)
[2018-12-01] MEDS: VALPROATE SOD INJ SCH (21:55)
[2018-12-01] MEDS: SODIUM CHLORIDE 0.9% INJ SCH (21:55)
[2018-12-02] VITALS (26 sets, daily range): BP systolic 89–171; BP diastolic 49–89
[2018-12-02] MEDS: DEXMEDETOMIDINE 200MCG/NS 50ML 50 ML IV PRN ×8 (01:48→23:43)
[2018-12-02] MEDS: ALBUTEROL/IPRATROPIUM 3 ML NEB NEB SCH ×4 (02:55→19:15)
[2018-12-02] MEDS: PIPER-TAZ 3.375 GM 50 ML IV SCH ×3 (04:04→20:36)
[2018-12-02] MEDS: METHYLPREDNISOLONE SOD SUCC 40 MG/ML VIAL 1ML IV SCH ×3 (05:39→22:00)
[2018-12-02 05:51] LABS: ALANINE AMINOTRANSFERASE 24 IU/L (0-55); ALBUMIN 2.8 g/dL (3.5-5.0); ALBUMIN/GLOBULIN RATIO 0.9 (0.8-2.0); ALKALINE PHOSPHATASE 63 IU/L (40-150); ANION GAP 14.9 mmol/L (8-16); BLOOD UREA NITROGEN 29 mg/dL (7-26); BUN/CREATININE RATIO 32 (6-25); CALCIUM 9.2 mg/dL (8.4-10.2); CARBON DIOXIDE 37 mmol/L (22-29); CHLORIDE 95 mmol/L (98-107); CREATININE, SERUM 0.91 mg/dL (0.57-1.11); EST GLOMERULAR FILTRATION RATE > 60 ML/MIN (60-); GLUCOSE 147 mg/dL (74-118); POTASSIUM 3.9 mmol/L (3.5-5.1); SODIUM 143 mmol/L (136-145)
--- NOTE | 2018-12-02 06:56 | NUR ---
IM- progress note O/N no events ROS: unobtainable v/s; revd PE: tired appearing anicteric ns1s2 reduced BS; reduced at bases soft nt nd no e/t awake; srinivasan skin dry flat affect labs/meds;revd A/P Acute resp failure Acute exa Diastolic CHF B/L pleural effusion COPD DM2 Anxiety d/o PLAN BIPAP; may need bipap start lasix nebs/steroids/abx scd cct>35mins cont care. BIPAP; sedated; cct>35mins. f/u labs and thoracentesis s/p thoracentesis; no PTX: adjust meds for mood. d/c planning; continued tx of anxiety CXR revd; cont supportive care; adjust seroquel up at night. Needs BIPAP at night. Continue care; d/c to snf when approved; d/c hydralazine; schedule metoprolol for tachycardia; cont lasix; seroquel seems to be working; 12/01 Acute resp failure- Remains intubated; Hospice discussions ongoing; R.lower lobe Aspiration PNA- improving; Extubated later today; on BIPAP and sedated. TONYA/AMS- persist; continue supportive care. 12/02 cont care. Hospice eval- d/w daughter- wants to go back to [facility] on Hospice. Deon Yanez MD, PhD.
[2018-12-02] MEDS: INSULIN LISPRO 100 UNIT/1 ML 3ML VIAL SQ SCH ×7 (07:30→20:49)
[2018-12-02] MEDS ORDERED: SODIUM CHLORIDE 0.9% 250ML 250 ML ONE (07:55)
[2018-12-02] MEDS: FUROSEMIDE INJ 10 MG/ML 4 ML VIAL IV SCH (09:45)
[2018-12-02] MEDS: VALPROATE SOD INJ SCH ×2 (09:45→21:32)
[2018-12-02] MEDS: SODIUM CHLORIDE 0.9% INJ SCH ×2 (09:45→21:32)
[2018-12-02] MEDS: HEPARIN SOD (PORCINE) 5,000 UNIT/ML VIAL SC SCH ×2 (09:54→20:53)
[2018-12-02] MEDS: PANTOPRAZOLE SOD 40 MG TABEC PO SCH (12:40)
[2018-12-02] MEDS: DILTIAZEM HCL ER 120 MG CAP PO SCH ×2 (12:40→17:00)
[2018-12-02] MEDS: LOSARTAN POTASSIUM 25 MG TAB PO SCH (12:40)
[2018-12-02] MEDS ORDERED: QUETIAPINE FUMARATE 25 MG TAB PO ONE (14:00)
--- NOTE | 2018-12-02 16:36 | NUR ---
CM SPOKE WITH PT'S NURSE GEORGE WORKING ON GETTING HALDOL PRN AND SEROQUEL TO CALM PT DOWN AND HOPEFULLY TITRATE PRECEDEX OFF ORDERS FOR [facility] UNDER HOSPICE
--- NOTE | 2018-12-02 16:46 | NUR ---
CALLED [facility] TO SEE IF PATIENT IS ABLE TO RETURN, WAS TOLD BY [facility] THAT PT WILL NOT BE ALLOWED BACK TO FACILITY. WILL SPEAK WITH FAMILY WHEN PT IS STABLE ENOUGH TO MAKE A PLAN FOR OTHER PLACEMENT WITH HOSPICE.
[2018-12-02] MEDS ORDERED: SODIUM CHLORIDE 0.9% 50ML 50 ML ONE (20:35)
[2018-12-02] MEDS: INSULIN GLARGINE 100 UNITS/ML VIAL SQ SCH (20:53)
[2018-12-02] MEDS ORDERED: QUETIAPINE FUMARATE 25 MG TAB PO SCH (21:00)
[2018-12-02] MEDS: HALOPERIDOL LACTATE 5 MG/ML VIAL IM PRN (21:04)
[2018-12-03] VITALS (25 sets, daily range): BP systolic 80–128; BP diastolic 49–94
[2018-12-03] MEDS: DEXMEDETOMIDINE 200MCG/NS 50ML 50 ML IV PRN ×2 (02:59→06:22)
[2018-12-03] MEDS: PIPER-TAZ 3.375 GM 50 ML IV SCH ×3 (04:09→20:09)
[2018-12-03] MEDS: METHYLPREDNISOLONE SOD SUCC 40 MG/ML VIAL 1ML IV SCH ×3 (06:05→22:00)
--- NOTE | 2018-12-03 06:20 | NUR ---
IM- progress note O/N no events ROS: unobtainable v/s; revd PE: tired appearing anicteric ns1s2 reduced BS; reduced at bases soft nt nd no e/t awake; srinivasan skin dry flat affect labs/meds;revd A/P Acute resp failure Acute exa Diastolic CHF B/L pleural effusion COPD DM2 Anxiety d/o PLAN BIPAP; may need bipap start lasix nebs/steroids/abx scd cct>35mins cont care. BIPAP; sedated; cct>35mins. f/u labs and thoracentesis s/p thoracentesis; no PTX: adjust meds for mood. d/c planning; continued tx of anxiety CXR revd; cont supportive care; adjust seroquel up at night. Needs BIPAP at night. Continue care; d/c to snf when approved; d/c hydralazine; schedule metoprolol for tachycardia; cont lasix; seroquel seems to be working; 12/01 Acute resp failure- Remains intubated; Hospice discussions ongoing; R.lower lobe Aspiration PNA- improving; Extubated later today; on BIPAP and sedated. TONYA/AMS- persist; continue supportive care. 12/02 cont care. Hospice eval- d/w daughter- wants to go back to [facility] on Hospice. 12/03 adjust meds; hospice pending; add alprazolam; added seroquel and prn haldol yesterday. no more precedex. titrate seroquel up; QTc 430. Deon Yanez MD, PhD.
[2018-12-03] MEDS: ALBUTEROL/IPRATROPIUM 3 ML NEB NEB SCH ×4 (06:55→20:30)
[2018-12-03] MEDS: INSULIN LISPRO 100 UNIT/1 ML 3ML VIAL SQ SCH ×7 (07:30→20:26)
[2018-12-03] MEDS: PANTOPRAZOLE SOD 40 MG TABEC PO SCH (07:52)
[2018-12-03] MEDS: SODIUM CHLORIDE 0.9% INJ SCH ×2 (08:13→20:49)
[2018-12-03] MEDS: VALPROATE SOD INJ SCH ×2 (08:13→20:49)
[2018-12-03] MEDS: FUROSEMIDE INJ 10 MG/ML 4 ML VIAL IV SCH (08:17)
[2018-12-03] MEDS: DILTIAZEM HCL ER 120 MG CAP PO SCH ×2 (08:17→11:55)
[2018-12-03] MEDS: LOSARTAN POTASSIUM 25 MG TAB PO SCH (08:17)
[2018-12-03] MEDS: ALPRAZOLAM 0.25 MG TAB PO SCH ×2 (08:17→16:02)
[2018-12-03] MEDS ORDERED: QUETIAPINE FUMARATE 25 MG TAB PO SCH ×3 (09:00→21:00)
[2018-12-03] MEDS: HEPARIN SOD (PORCINE) 5,000 UNIT/ML VIAL SC SCH ×2 (09:30→20:30)
--- NOTE | 2018-12-03 10:00 | NUR ---
PT HR IN 120-140'S, BP 90/50 PAGED AWAITING CALL BACK
[2018-12-03] MEDS: DILTIAZEM HCL 5 MG/ML 5 ML VIAL IV PRN ×3 (10:21→19:50)
--- NOTE | 2018-12-03 10:30 | NUR ---
SPOKE TO RECEIVED ORDERS TO ONLY GIVE 5MG FOR NOW THEN ANOTHER 5 MG IF BP TOLERATES. WILL CONTINUE TO MONITOR CLOSELY
--- NOTE | 2018-12-03 10:44 | NUR ---
2ND 5 MG OF CARDIZEM GIVEN AT THIS TIME PT HR 115 BP 106/60
[2018-12-03] MEDS: HALOPERIDOL LACTATE 5 MG/ML VIAL IM PRN ×2 (12:10→20:17)
--- NOTE | 2018-12-03 12:56 | NUR ---
SPOKE WITH DAUGHTER VIMAL JOINER IN ROOM, LET KNOW PT WOULD NOT BE RETURNING TO [facility], SPOKE ABOUT HOSPICE AND CHOICES, SHE SIGNED FOR [facility] [place], REP ABY JOINER WILL MEET WITH HER AT 2PM TODAY, PUT PACKET TOGETHER FOR HER WHEN SHE GETS HERE. SPOKE WITH DAUGHTER ABOUT THE PLACEMENT OPTIONS, ASKED HER IF SHE WAS ABLE TO GET THE MOTHERS BANK STATEMENTS TO APPLY FOR MEDICAID FOR [facility] [employer], SHE STATES NO, LET HER KNOW SHE WILL HAVE TO DO THAT, DID EDUCATE ABOUT INPATIENT HOSPICE AND LET HER SHE WILL HAVE TO MEET CRITERIA, BUT WILL ALSO NEED TO GET THE BANK STATEMENTS FOR A BACK UP PLAN. EDUCATED ON PAYMENT FOR HOSPICE VERSES [facility], AND THE OPTION OF HOME WITH HOSPICE. SHE WILL DISCUSS ALL THE OPTIONS WITH ABY AND LET ME KNOW HER DECISION.
[2018-12-03] MEDS ORDERED: DIGOXIN INJ 0.25 MG/ML 2 ML AMP IV ONE (13:15)
--- NOTE | 2018-12-03 13:15 | NUR ---
SPOKE TO REGARDING PATIENT HR GOING INTO THE 150-170'S RECEIVED ORDERS WILL CONTINUE TO MONITOR
--- NOTE | 2018-12-03 14:47 | NUR ---
SPOKE TO NOTIFIED OF PATIENT STILL BEING AGITATED, TAKING OXYGEN OFF, REMOVING GOWN PULLING AT LINES AND HR BEING BETWEEN 110-130 AND HAD JUMPS INTO THE 170'S. RECEIVED ORDERS. WILL CONTINUE TO MONITOR CLOSELY
[2018-12-03] MEDS: ALPRAZOLAM 0.5 MG TAB PO PRN ×2 (15:11→21:10)
[2018-12-03] MEDS: INSULIN GLARGINE 100 UNITS/ML VIAL SQ SCH (20:31)
[2018-12-04] VITALS (16 sets, daily range): BP systolic 101–157; BP diastolic 41–87
[2018-12-04] MEDS: ALBUTEROL/IPRATROPIUM 3 ML NEB NEB SCH ×3 (01:00→14:00)
[2018-12-04] MEDS: PIPER-TAZ 3.375 GM 50 ML IV SCH ×2 (03:39→12:00)
--- NOTE | 2018-12-04 05:27 | NUR ---
D/C Summary AMS/TONYA (acute metabolic encephalopathy) Acute resp failure Acute exa Diastolic CHF B/L pleural effusion s/p thoracentesis COPD DM2 Anxiety d/o PLAN BIPAP; may need bipap start lasix nebs/steroids/abx scd cct>35mins cont care. BIPAP; sedated; cct>35mins. f/u labs and thoracentesis s/p thoracentesis; no PTX: adjust meds for mood. d/c planning; continued tx of anxiety CXR revd; cont supportive care; adjust seroquel up at night. Needs BIPAP at night. Continue care; d/c to snf when approved; d/c hydralazine; schedule metoprolol for tachycardia; cont lasix; seroquel seems to be working; 12/01 Acute resp failure- Remains intubated; Hospice discussions ongoing; R.lower lobe Aspiration PNA- improving; Extubated later today; on BIPAP and sedated. TONYA/AMS- persist; continue supportive care. 12/02 cont care. Hospice eval- d/w daughter- wants to go back to [facility] on Hospice. 12/03 adjust meds; hospice pending; add alprazolam; added seroquel and prn haldol yesterday. no more precedex. titrate seroquel up; QTc 430. 12/04 titrate seroquel up; add risperdal; cont xanax q8; wean Steroids as able as can contribute to psychosis. d/c to hospice d/c to hospice State: [place] d/c>35mins f/u hospice team tomorrow; Deon Yanez MD, PhD.
[2018-12-04] MEDS: INSULIN LISPRO 100 UNIT/1 ML 3ML VIAL SQ SCH ×6 (07:30→16:42)
[2018-12-04] MEDS: PANTOPRAZOLE SOD 40 MG TABEC PO SCH (07:30)
[2018-12-04] MEDS: FUROSEMIDE INJ 10 MG/ML 4 ML VIAL IV SCH (09:00)
[2018-12-04] MEDS: RISPERIDONE 0.5 MG TAB PO SCH ×2 (09:00→16:39)
[2018-12-04] MEDS: HEPARIN SOD (PORCINE) 5,000 UNIT/ML VIAL SC SCH (09:00)
[2018-12-04] MEDS: VALPROATE SOD INJ SCH (09:00)
[2018-12-04] MEDS: ALPRAZOLAM 0.25 MG TAB PO SCH ×2 (09:00→16:39)
[2018-12-04] MEDS ORDERED: QUETIAPINE FUMARATE 25 MG TAB PO SCH ×3 (09:00→21:00)
[2018-12-04] MEDS ORDERED: METHYLPREDNISOLONE SOD SUCC 40 MG/ML VIAL 1ML IV SCH (09:00)
[2018-12-04] MEDS: LOSARTAN POTASSIUM 25 MG TAB PO SCH (09:00)
[2018-12-04] MEDS ORDERED: QUETIAPINE FUMARATE 100 MG TAB PO SCH ×2 (09:00→21:00)
[2018-12-04] MEDS: DILTIAZEM HCL ER 120 MG CAP PO SCH ×2 (09:00→16:39)
[2018-12-04] MEDS: SODIUM CHLORIDE 0.9% INJ SCH (09:00)
--- NOTE | 2018-12-04 09:07 | NUR ---
SPOKE WITH ABY FROM [facility], SHE STATES PT IS ACCEPTED TO INPATIENT WITH BACK UP PLAN OF FOCUSED CARE, SPOKE WITH DAUGHTER VIMAL JOINER SHE IS APPLYING FOR MEDICAID TODAY. ABY WILL GET ME A COPY OF THE DNR WHEN SHE OBTAINS THE DOCTOR SIGNATURE AND CALL ME WITH TRANSPORT TIME. I WILL NOTIFY THE DAUGHTER AND THE NURSE WHEN I GET ALL THE ABOVE INFORMATION.
--- NOTE | 2018-12-04 09:30 | NUR ---
Seroquel 100mg PO and Xanax held this am due to being lethargic.
--- NOTE | 2018-12-04 11:31 | NUR ---
Report called to Loan Lou RN at [facility] in anticipation of patient leaving today.
--- NOTE | 2018-12-04 14:08 | NUR ---
SPOKE WITH ABY HINOJOSA UP FROM [facility] WILL BE AT 330PM, PT WILL GO TO [place] LOCATION, [id number], [place] [address], [MAGALI IS [phone], DNR PROVIDED TO NURSE TO GIVE TO VP [facility] UPON ARRIVAL TO ACCOMPANY PT TO FACILITY.
[2018-12-04 16:23] LABS: ABG HCO3 43 mmol/L (23-28); ABG PCO2 97 mmHg (41-51); ABG PH 7.25 (7.31-7.41); ABG PO2 93 mmHg (80-105)
== END 2018-12-04 19:05 | disposition hospice, inpatient (51) | DRG 871 ==
LOC: ER 16:08 → ERHOLD 19:05 → MED/SURG 22:00 → IMCU 11-28 11:08 → OBSVTOIN 11-28 14:58 → ICU 11-29 18:52
PROVIDERS: ADMIT Internal Medicine; ATTEND Internal Medicine
PROC: 5A1945Z Respiratory Ventilation, 24-96 Consecutive Hours (ICD-10-PCS; principal; 2018-11-29)
PROC: 0BH17EZ Insertion of Endotracheal Airway into Trachea, Via Natural or Artificial Opening (ICD-10-PCS; 2018-11-29)
DX: A41.9 Sepsis, unspecified organism (principal); J69.0 Pneumonitis due to inhalation of food and vomit; J96.22 Acute and chronic respiratory failure with hypercapnia; G93.41 Metabolic encephalopathy; J96.21 Acute and chronic respiratory failure with hypoxia; I50.33 Acute on chronic diastolic (congestive) heart failure; J44.1 Chronic obstructive pulmonary disease with (acute) exacerbation; F02.81 Dementia in other diseases classified elsewhere, unspecified severity, with behavioral disturbance; Z82.49 Family history of ischemic heart disease and other diseases of the circulatory system; Z91.81 History of falling; F17.210 Nicotine dependence, cigarettes, uncomplicated; Z83.3 Family history of diabetes mellitus; G30.9 Alzheimer's disease, unspecified; I48.2 Chronic atrial fibrillation; I11.0 Hypertensive heart disease with heart failure; E11.9 Type 2 diabetes mellitus without complications; E78.00 Pure hypercholesterolemia, unspecified; Z90.49 Acquired absence of other specified parts of digestive tract; D64.9 Anemia, unspecified; R53.81 Other malaise; E66.9 Obesity, unspecified; Z68.36 Body mass index [BMI] 36.0-36.9, adult; G47.33 Obstructive sleep apnea (adult) (pediatric); F41.9 Anxiety disorder, unspecified
CPT/HCPCS: 31500; 36415; 36600; 70450; 71045; 80048; 80053; 82550; 82553; 82805; 82948; 83735; 84484; 85025; 93005; 94002; 94003; 94640; 94660; 96372; 99284; G0378; J0330; J0360; J1160; J1630; J1644; J1815; J1940; J2543; J2920; J2930; J3370; J3475; J3480; J7050